=== PATIENT | male | born 1990 | race Caucasian/White ===

== ENCOUNTER 2021-06-04 22:13 | Inpatient (IN) | payer MEDICAID, OTHER, SELFPAY ==
[2021-06-04 22:32] VITALS: BP 143/87; PULSE 107; RESP 17; TEMP 37.1; O2SAT 97; BMI 27.9
--- NOTE | 2021-06-04 22:54 | ED_ITS ---
HPI - General Adult General Chief complaint: Psychiatric Symptoms <NATHAN Garcia Last Filed: 06/05/21 01:56> Stated complaint: crisis <Sallie Perez NP - Last Filed: 06/05/21 01:56> Time Seen by Provider: 06/05/21 09:58 <NATHAN Garcia Last Filed: 06/05/21 01:56> Source: patient <NATHAN Garcia Last Filed: 06/05/21 01:56> Mode of arrival: ambulatory <Sallie Perez NP - Last Filed: 06/05/21 01:56> Limitations: altered mental status <Sallie Perez NP - Last Filed: 06/05/21 01:56> History of Present Illness HPI narrative: 31-year-old male presents for multiple complaints, mostly psychiatric. Patient is not making any sense, sentences are garbled and speaking and half Faroese half Korean phrases. <NATHAN Garcia Last Filed: 06/05/21 01:56> Onset (ago): unknown <Sallie Perez NP - Last Filed: 06/05/21 01:56> Radiation: non-radiation <Sallie Perez NP - Last Filed: 06/05/21 01:56> Severity: moderate <Sallie Perez NP - Last Filed: 06/05/21 01:56> Associated symptoms: denies other symptoms <Sallie Perez NP - Last Filed: 06/05/21 01:56> Related Data Allergies/adverse reactions: Allergies Allergy/AdvReac Type Severity Reaction Status Date / Time No Known Allergies Allergy Unverified 11/05/19 18:52 [No Known Allergies*] <NATHAN Garcia Last Filed: 06/05/21 01:56> Review of Systems Review of Systems: Yes Unobtainable due to mental status (Manic, psychosis) <NATHAN Garcia Last Filed: 06/05/21 01:56> PMFSH Past Medical History Attestation statement: The following information was validated with the patient. <NATHAN Garcia Last Filed: 06/05/21 01:56> Source: old records reviewed <Sallie Perez NP - Last Filed: 06/05/21 01:56> Social History Social History: Social History Advance Directives: No Healthcare Proxy: No <Sallie Perez NP - Last Filed: 06/05/21 01:56> Physical Exam ED Vital Signs: Vital Signs - 24 hr 06/05/21 15:43 06/06/21 06:19 06/06/21 07:56 Temperature 98 F 97.8 F Pulse Rate 90 76 Respiratory Rate 16 16 15 Blood Pressure 133/87 133/86 Pulse Oximetry 97 96 BMI result Body Mass Index 27.9 <Sallie Perez NP - Last Filed: 06/05/21 01:56> Vital Signs - 24 hr 06/05/21 15:43 06/06/21 06:19 06/06/21 07:56 Temperature 98 F 97.8 F Pulse Rate 90 76 Respiratory Rate 16 16 15 Blood Pressure 133/87 133/86 Pulse Oximetry 97 96 BMI result Body Mass Index 27.9 <JENNIFER Ponce - Last Filed: 06/05/21 15:24> Vital Signs - 24 hr 06/05/21 15:43 06/06/21 06:19 06/06/21 07:56 Temperature 98 F 97.8 F Pulse Rate 90 76 Respiratory Rate 16 16 15 Blood Pressure 133/87 133/86 Pulse Oximetry 97 96 BMI result Body Mass Index 27.9 <JENNIFER Melgar - Last Filed: 06/06/21 09:43> Appearance: Alert. Oriented X3. No acute distress. Eyes: Pupils equal, round and reactive to light. ENT: Pharynx erythematous with bilateral tonsillar swelling. Neck: Normal inspection. Neck supple. CVS: Normal heart rate and rhythm. Pulses normal. Respiratory: No respiratory distress. Breath sounds normal. Abdomen: Soft and nontender. Skin: Skin warm and dry. Normal skin color. Normal skin turgor. Extremities: No lower extremity edema. Gait well-balanced well coordinated. Neuro: No motor deficit. No sensory deficit. Cranial nerves 2-12 intact. <Sallie Perez NP - Last Filed: 06/05/21 01:56> Course Course Course Narrative: 31-year-old male presents for psych evaluation. 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 Patient is clearly manic or psychotic. Will order care team consult. Will treat with azithromycin 1000 mg and ceftriaxone 500 mg IM. Patient is not suicidal or homicidal. Has a past history of schizophrenia. Last known visit to this facility was before 2015. 00:30 patient asking other patients to smell his shoes. Patient was moved to a different section of the emergency department and placed under direct supervision. 00:45 care team consult, plan is for Section 12 as patient is manic, has a history of schizoaffective disorder. Strep COVID influenza negative. 01:12 patient given Zyprexa 10, 2 mg of Ativan and 50 mg of Benadryl. Patient is not making any sense with his conversation. Needs multiple redirections. Physician observation started at this time. <Sallie Perez NP - Last Filed: 06/05/21 01:56> Reevaluation(s) Reevaluation #1: Physician observation continued. Patient continues to sleep after he was medicated with intramuscular Benadryl, Ativan and Zyprexa. Referral to crisis team has been made. Will continue to monitor closely. <JENNIFER Ponce - Last Filed: 06/05/21 15:24> Time: 09:59 <JENNIFER Ponce - Last Filed: 06/05/21 15:24> Reevaluation #2: Addendum 06/06/2021: Physician observation continued. Vital signs stable, no complaints overnight. Patient continues to be CARE team inpatient bed search <JENNIFER Melgar - Last Filed: 06/06/21 09:43> Time: 09:42 <JENNIFER Melgar - Last Filed: 06/06/21 09:43> Medical Decision Making Differential Diagnosis Differential Diagnosis: Psychosis, rafael, possible gonorrhea <Sallie Perez NP - Last Filed: 06/05/21 01:56> Medical Records Medical records reviewed: Yes I reviewed the patient's medical records. <Sallie Perez NP - Last Filed: 06/05/21 01:56> Lab Data Lab results reviewed: Yes I reviewed the patient's lab results. <Sallie Perez NP - Last Filed: 06/05/21 01:56> Result diagrams: : 06/04/21 23:34 06/04/21 23:34 <Sallie Perez NP - Last Filed: 06/05/21 01:56> Labs: Lab Results 06/04/21 06/04/21 06/04/21 Range/Units 23:04 23:04 23:26 WBC (4.8-10.8) X10*3/uL RBC (4.60-5.80) X10*6/uL Hgb (14.0-18.0) g/dl Hct (42.0-52.0) % MCV (80.0-98.0) fL MCH (27.0-33.0) pg MCHC (31.0-36.0) g/dl RDW (11.0-16.0) % Plt Count (160-400) X10*3/uL MPV (9.4-12.4) fL Immature Gran % (Auto) (0.0-0.4) % Neut % (Auto) (45-73) % Lymph % (Auto) (20-40) % [place] % (Auto) (2-11) % Eos % (Auto) (0-4) % Baso % (Auto) (0-2) % Lymph # (Auto) (1.2-4.9) X10*3/uL [place] # (Auto) (0.1-1.2) X10*3/uL Eos # (Auto) (0.0-0.4) X10*3/uL Baso # (Auto) (0.0-0.2) X10*3/uL Abs Immat Gran (auto) (0.00-0.03) X10*3/uL Absolute Neuts (auto) (2.0-8.3) x10*3/uL Absolute Nucleated RBC (0.0-0.012) X10*3/uL Nucleated RBC % (auto) (0.0-0.2) /100WBC Sodium (135-145) mmol/L Potassium (3.3-5.1) mmol/L Chloride (96-108) mmol/L Carbon Dioxide (22-29) mmol/L Anion Gap (12-20) BUN (9-16) mg/dL Creatinine (0.5-1.4) mg/dL Estim Creat Clear Calc Estimated GFR Random Glucose (60-115) mg/dL Calcium (8.4-10.2) mg/dL Urine Color Urine Appearance Urine pH (5.0-8.0) Ur Specific [place] (1.005-1.025) Urine Protein (NEG-TRACE) MG/DL Urine Glucose (UA) (NEG) MG/DL Urine Ketones (NEG) MG/DL Urine Blood (NEG) Urine Nitrite (NEG) Ur Leukocyte Esterase (NEG) Urine Opiates Screen (Not Detect) Urine Fentanyl Screen (Not Detect) Ur Barbiturates Screen (Not Detect) Ur Phencyclidine Scrn (Not Detect) Ur Amphetamines Screen (Not Detect) U Benzodiazepines Scrn (Not Detect) Urine Cocaine Screen (Not Detect) U Marijuana (THC) Screen (Not Detect) Ethyl Alcohol mg/dL Chlam trachomat DNA PCR NOT DETECTED (Not Detect.) Influenza Type A (PCR) NEGATIVE (Negative) Influenza Type B (PCR) NEGATIVE (Negative) N.gonorrhoeae DNA (PCR) NOT DETECTED (Not Detect.) RSV RNA Qual (PCR) NEGATIVE (Negative) SARS-CoV-2 RNA (RT-PCR) NEGATIVE (Negative) S. pyogenes GrpA KAYLIN Negative (Negative) 06/04/21 06/04/21 06/04/21 Range/Units 23:27 23:27 23:34 WBC 13.9 H (4.8-10.8) X10*3/uL RBC 4.49 L (4.60-5.80) X10*6/uL Hgb 14.0 (14.0-18.0) g/dl Hct 41.9 L (42.0-52.0) % MCV 93.3 (80.0-98.0) fL MCH 31.2 (27.0-33.0) pg MCHC 33.4 (31.0-36.0) g/dl RDW 13.2 (11.0-16.0) % Plt Count 294 (160-400) X10*3/uL MPV 10.8 (9.4-12.4) fL Immature Gran % (Auto) 0.4 (0.0-0.4) % Neut % (Auto) 73.1 H (45-73) % Lymph % (Auto) 17.4 L (20-40) % [place] % (Auto) 7.9 (2-11) % Eos % (Auto) 0.9 (0-4) % Baso % (Auto) 0.3 (0-2) % Lymph # (Auto) 2.4 (1.2-4.9) X10*3/uL [place] # (Auto) 1.1 (0.1-1.2) X10*3/uL Eos # (Auto) 0.1 (0.0-0.4) X10*3/uL Baso # (Auto) 0.0 (0.0-0.2) X10*3/uL Abs Immat Gran (auto) 0.05 H (0.00-0.03) X10*3/uL Absolute Neuts (auto) 10.1 H (2.0-8.3) x10*3/uL Absolute Nucleated RBC 0.000 (0.0-0.012) X10*3/uL Nucleated RBC % (auto) 0.0 (0.0-0.2) /100WBC Sodium (135-145) mmol/L Potassium (3.3-5.1) mmol/L Chloride (96-108) mmol/L Carbon Dioxide (22-29) mmol/L Anion Gap (12-20) BUN (9-16) mg/dL Creatinine (0.5-1.4) mg/dL Estim Creat Clear Calc Estimated GFR Random Glucose (60-115) mg/dL Calcium (8.4-10.2) mg/dL Urine Color YELLOW Urine Appearance CLEAR Urine pH 7.0 (5.0-8.0) Ur Specific [place] 1.025 (1.005-1.025) Urine Protein TRACE (NEG-TRACE) MG/DL Urine Glucose (UA) NEG (NEG) MG/DL Urine Ketones 5 (NEG) MG/DL Urine Blood NEG (NEG) Urine Nitrite NEG (NEG) Ur Leukocyte Esterase NEG (NEG) Urine Opiates Screen Not Detected (Not Detect) Urine Fentanyl Screen Not Detected (Not Detect) Ur Barbiturates Screen Not Detected (Not Detect) Ur Phencyclidine Scrn Not Detected (Not Detect) Ur Amphetamines Screen Not Detected (Not Detect) U Benzodiazepines Scrn Not Detected (Not Detect) Urine Cocaine Screen Not Detected (Not Detect) U Marijuana (THC) Screen Not Detected (Not Detect) Ethyl Alcohol mg/dL Chlam trachomat DNA PCR (Not Detect.) Influenza Type A (PCR) (Negative) Influenza Type B (PCR) (Negative) N.gonorrhoeae DNA (PCR) (Not Detect.) RSV RNA Qual (PCR) (Negative) SARS-CoV-2 RNA (RT-PCR) (Negative) S. pyogenes GrpA KAYLNI (Negative) 06/04/21 06/04/21 Range/Units 23:34 23:34 WBC (4.8-10.8) X10*3/uL RBC (4.60-5.80) X10*6/uL Hgb (14.0-18.0) g/dl Hct (42.0-52.0) % MCV (80.0-98.0) fL MCH (27.0-33.0) pg MCHC (31.0-36.0) g/dl RDW (11.0-16.0) % Plt Count (160-400) X10*3/uL MPV (9.4-12.4) fL Immature Gran % (Auto) (0.0-0.4) % Neut % (Auto) (45-73) % Lymph % (Auto) (20-40) % [place] % (Auto) (2-11) % Eos % (Auto) (0-4) % Baso % (Auto) (0-2) % Lymph # (Auto) (1.2-4.9) X10*3/uL [place] # (Auto) (0.1-1.2) X10*3/uL Eos # (Auto) (0.0-0.4) X10*3/uL Baso # (Auto) (0.0-0.2) X10*3/uL Abs Immat Gran (auto) (0.00-0.03) X10*3/uL Absolute Neuts (auto) (2.0-8.3) x10*3/uL Absolute Nucleated RBC (0.0-0.012) X10*3/uL Nucleated RBC % (auto) (0.0-0.2) /100WBC Sodium 137 (135-145) mmol/L Potassium 3.8 (3.3-5.1) mmol/L Chloride 99 (96-108) mmol/L Carbon Dioxide 26 (22-29) mmol/L Anion Gap 16 (12-20) BUN 18 H (9-16) mg/dL Creatinine 1.24 (0.5-1.4) mg/dL Estim Creat Clear Calc 93.6 Estimated GFR > 60 Random Glucose 146 H (60-115) mg/dL Calcium 10.7 H (8.4-10.2) mg/dL Urine Color Urine Appearance Urine pH (5.0-8.0) Ur Specific [place] (1.005-1.025) Urine Protein (NEG-TRACE) MG/DL Urine Glucose (UA) (NEG) MG/DL Urine Ketones (NEG) MG/DL Urine Blood (NEG) Urine Nitrite (NEG) Ur Leukocyte Esterase (NEG) Urine Opiates Screen (Not Detect) Urine Fentanyl Screen (Not Detect) Ur Barbiturates Screen (Not Detect) Ur Phencyclidine Scrn (Not Detect) Ur Amphetamines Screen (Not Detect) U Benzodiazepines Scrn (Not Detect) Urine Cocaine Screen (Not Detect) U Marijuana (THC) Screen (Not Detect) Ethyl Alcohol < 10 mg/dL Chlam trachomat DNA PCR (Not Detect.) Influenza Type A (PCR) (Negative) Influenza Type B (PCR) (Negative) N.gonorrhoeae DNA (PCR) (Not Detect.) RSV RNA Qual (PCR) (Negative) SARS-CoV-2 RNA (RT-PCR) (Negative) S. pyogenes GrpA KAYLIN (Negative) <Sallie Perez NP - Last Filed: 06/05/21 01:56> Lab Results 06/04/21 06/04/21 06/04/21 Range/Units 23:04 23:04 23:26 WBC (4.8-10.8) X10*3/uL RBC (4.60-5.80) X10*6/uL Hgb (14.0-18.0) g/dl Hct (42.0-52.0) % MCV (80.0-98.0) fL MCH (27.0-33.0) pg MCHC (31.0-36.0) g/dl RDW (11.0-16.0) % Plt Count (160-400) X10*3/uL MPV (9.4-12.4) fL Immature Gran % (Auto) (0.0-0.4) % Neut % (Auto) (45-73) % Lymph % (Auto) (20-40) % [place] % (Auto) (2-11) % Eos % (Auto) (0-4) % Baso % (Auto) (0-2) % Lymph # (Auto) (1.2-4.9) X10*3/uL [place] # (Auto) (0.1-1.2) X10*3/uL Eos # (Auto) (0.0-0.4) X10*3/uL Baso # (Auto) (0.0-0.2) X10*3/uL Abs Immat Gran (auto) (0.00-0.03) X10*3/uL Absolute Neuts (auto) (2.0-8.3) x10*3/uL Absolute Nucleated RBC (0.0-0.012) X10*3/uL Nucleated RBC % (auto) (0.0-0.2) /100WBC Sodium (135-145) mmol/L Potassium (3.3-5.1) mmol/L Chloride (96-108) mmol/L Carbon Dioxide (22-29) mmol/L Anion Gap (12-20) BUN (9-16) mg/dL Creatinine (0.5-1.4) mg/dL Estim Creat Clear Calc Estimated GFR Random Glucose (60-115) mg/dL Calcium (8.4-10.2) mg/dL Urine Color Urine Appearance Urine pH (5.0-8.0) Ur Specific [place] (1.005-1.025) Urine Protein (NEG-TRACE) MG/DL Urine Glucose (UA) (NEG) MG/DL Urine Ketones (NEG) MG/DL Urine Blood (NEG) Urine Nitrite (NEG) Ur Leukocyte Esterase (NEG) Urine Opiates Screen (Not Detect) Urine Fentanyl Screen (Not Detect) Ur Barbiturates Screen (Not Detect) Ur Phencyclidine Scrn (Not Detect) Ur Amphetamines Screen (Not Detect) U Benzodiazepines Scrn (Not Detect) Urine Cocaine Screen (Not Detect) U Marijuana (THC) Screen (Not Detect) Ethyl Alcohol mg/dL Chlam trachomat DNA PCR NOT DETECTED (Not Detect.) Influenza Type A (PCR) NEGATIVE (Negative) Influenza Type B (PCR) NEGATIVE (Negative) N.gonorrhoeae DNA (PCR) NOT DETECTED (Not Detect.) RSV RNA Qual (PCR) NEGATIVE (Negative) SARS-CoV-2 RNA (RT-PCR) NEGATIVE (Negative) S. pyogenes GrpA KAYLIN Negative (Negative) 06/04/21 06/04/21 06/04/21 Range/Units 23:27 23:27 23:34 WBC 13.9 H (4.8-10.8) X10*3/uL RBC 4.49 L (4.60-5.80) X10*6/uL Hgb 14.0 (14.0-18.0) g/dl Hct 41.9 L (42.0-52.0) % MCV 93.3 (80.0-98.0) fL MCH 31.2 (27.0-33.0) pg MCHC 33.4 (31.0-36.0) g/dl RDW 13.2 (11.0-16.0) % Plt Count 294 (160-400) X10*3/uL MPV 10.8 (9.4-12.4) fL Immature Gran % (Auto) 0.4 (0.0-0.4) % Neut % (Auto) 73.1 H (45-73) % Lymph % (Auto) 17.4 L (20-40) % [place] % (Auto) 7.9 (2-11) % Eos % (Auto) 0.9 (0-4) % Baso % (Auto) 0.3 (0-2) % Lymph # (Auto) 2.4 (1.2-4.9) X10*3/uL [place] # (Auto) 1.1 (0.1-1.2) X10*3/uL Eos # (Auto) 0.1 (0.0-0.4) X10*3/uL Baso # (Auto) 0.0 (0.0-0.2) X10*3/uL Abs Immat Gran (auto) 0.05 H (0.00-0.03) X10*3/uL Absolute Neuts (auto) 10.1 H (2.0-8.3) x10*3/uL Absolute Nucleated RBC 0.000 (0.0-0.012) X10*3/uL Nucleated RBC % (auto) 0.0 (0.0-0.2) /100WBC Sodium (135-145) mmol/L Potassium (3.3-5.1) mmol/L Chloride (96-108) mmol/L Carbon Dioxide (22-29) mmol/L Anion Gap (12-20) BUN (9-16) mg/dL Creatinine (0.5-1.4) mg/dL Estim Creat Clear Calc Estimated GFR Random Glucose (60-115) mg/dL Calcium (8.4-10.2) mg/dL Urine Color YELLOW Urine Appearance CLEAR Urine pH 7.0 (5.0-8.0) Ur Specific [place] 1.025 (1.005-1.025) Urine Protein TRACE (NEG-TRACE) MG/DL Urine Glucose (UA) NEG (NEG) MG/DL Urine Ketones 5 (NEG) MG/DL Urine Blood NEG (NEG) Urine Nitrite NEG (NEG) Ur Leukocyte Esterase NEG (NEG) Urine Opiates Screen Not Detected (Not Detect) Urine Fentanyl Screen Not Detected (Not Detect) Ur Barbiturates Screen Not Detected (Not Detect) Ur Phencyclidine Scrn Not Detected (Not Detect) Ur Amphetamines Screen Not Detected (Not Detect) U Benzodiazepines Scrn Not Detected (Not Detect) Urine Cocaine Screen Not Detected (Not Detect) U Marijuana (THC) Screen Not Detected (Not Detect) Ethyl Alcohol mg/dL Chlam trachomat DNA PCR (Not Detect.) Influenza Type A (PCR) (Negative) Influenza Type B (PCR) (Negative) N.gonorrhoeae DNA (PCR) (Not Detect.) RSV RNA Qual (PCR) (Negative) SARS-CoV-2 RNA (RT-PCR) (Negative) S. pyogenes GrpA KAYLIN (Negative) 06/04/21 06/04/21 Range/Units 23:34 23:34 WBC (4.8-10.8) X10*3/uL RBC (4.60-5.80) X10*6/uL Hgb (14.0-18.0) g/dl Hct (42.0-52.0) % MCV (80.0-98.0) fL MCH (27.0-33.0) pg MCHC (31.0-36.0) g/dl RDW (11.0-16.0) % Plt Count (160-400) X10*3/uL MPV (9.4-12.4) fL Immature Gran % (Auto) (0.0-0.4) % Neut % (Auto) (45-73) % Lymph % (Auto) (20-40) % [place] % (Auto) (2-11) % Eos % (Auto) (0-4) % Baso % (Auto) (0-2) % Lymph # (Auto) (1.2-4.9) X10*3/uL [place] # (Auto) (0.1-1.2) X10*3/uL Eos # (Auto) (0.0-0.4) X10*3/uL Baso # (Auto) (0.0-0.2) X10*3/uL Abs Immat Gran (auto) (0.00-0.03) X10*3/uL Absolute Neuts (auto) (2.0-8.3) x10*3/uL Absolute Nucleated RBC (0.0-0.012) X10*3/uL Nucleated RBC % (auto) (0.0-0.2) /100WBC Sodium 137 (135-145) mmol/L Potassium 3.8 (3.3-5.1) mmol/L Chloride 99 (96-108) mmol/L Carbon Dioxide 26 (22-29) mmol/L Anion Gap 16 (12-20) BUN 18 H (9-16) mg/dL Creatinine 1.24 (0.5-1.4) mg/dL Estim Creat Clear Calc 93.6 Estimated GFR > 60 Random Glucose 146 H (60-115) mg/dL Calcium 10.7 H (8.4-10.2) mg/dL Urine Color Urine Appearance Urine pH (5.0-8.0) Ur Specific [place] (1.005-1.025) Urine Protein (NEG-TRACE) MG/DL Urine Glucose (UA) (NEG) MG/DL Urine Ketones (NEG) MG/DL Urine Blood (NEG) Urine Nitrite (NEG) Ur Leukocyte Esterase (NEG) Urine Opiates Screen (Not Detect) Urine Fentanyl Screen (Not Detect) Ur Barbiturates Screen (Not Detect) Ur Phencyclidine Scrn (Not Detect) Ur Amphetamines Screen (Not Detect) U Benzodiazepines Scrn (Not Detect) Urine Cocaine Screen (Not Detect) U Marijuana (THC) Screen (Not Detect) Ethyl Alcohol < 10 mg/dL Chlam trachomat DNA PCR (Not Detect.) Influenza Type A (PCR) (Negative) Influenza Type B (PCR) (Negative) N.gonorrhoeae DNA (PCR) (Not Detect.) RSV RNA Qual (PCR) (Negative) SARS-CoV-2 RNA (RT-PCR) (Negative) S. pyogenes GrpA KAYLIN (Negative) <JENNIFER Ponce - Last Filed: 06/05/21 15:24> Lab Results 06/04/21 06/04/21 06/04/21 Range/Units 23:04 23:04 23:26 WBC (4.8-10.8) X10*3/uL RBC (4.60-5.80) X10*6/uL Hgb (14.0-18.0) g/dl Hct (42.0-52.0) % MCV (80.0-98.0) fL MCH (27.0-33.0) pg MCHC (31.0-36.0) g/dl RDW (11.0-16.0) % Plt Count (160-400) X10*3/uL MPV (9.4-12.4) fL Immature Gran % (Auto) (0.0-0.4) % Neut % (Auto) (45-73) % Lymph % (Auto) (20-40) % [place] % (Auto) (2-11) % Eos % (Auto) (0-4) % Baso % (Auto) (0-2) % Lymph # (Auto) (1.2-4.9) X10*3/uL [place] # (Auto) (0.1-1.2) X10*3/uL Eos # (Auto) (0.0-0.4) X10*3/uL Baso # (Auto) (0.0-0.2) X10*3/uL Abs Immat Gran (auto) (0.00-0.03) X10*3/uL Absolute Neuts (auto) (2.0-8.3) x10*3/uL Absolute Nucleated RBC (0.0-0.012) X10*3/uL Nucleated RBC % (auto) (0.0-0.2) /100WBC Sodium (135-145) mmol/L Potassium (3.3-5.1) mmol/L Chloride (96-108) mmol/L Carbon Dioxide (22-29) mmol/L Anion Gap (12-20) BUN (9-16) mg/dL Creatinine (0.5-1.4) mg/dL Estim Creat Clear Calc Estimated GFR Random Glucose (60-115) mg/dL Calcium (8.4-10.2) mg/dL Urine Color Urine Appearance Urine pH (5.0-8.0) Ur Specific [place] (1.005-1.025) Urine Protein (NEG-TRACE) MG/DL Urine Glucose (UA) (NEG) MG/DL Urine Ketones (NEG) MG/DL Urine Blood (NEG) Urine Nitrite (NEG) Ur Leukocyte Esterase (NEG) Urine Opiates Screen (Not Detect) Urine Fentanyl Screen (Not Detect) Ur Barbiturates Screen (Not Detect) Ur Phencyclidine Scrn (Not Detect) Ur Amphetamines Screen (Not Detect) U Benzodiazepines Scrn (Not Detect) Urine Cocaine Screen (Not Detect) U Marijuana (THC) Screen (Not Detect) Ethyl Alcohol mg/dL Chlam trachomat DNA PCR NOT DETECTED (Not Detect.) Influenza Type A (PCR) NEGATIVE (Negative) Influenza Type B (PCR) NEGATIVE (Negative) N.gonorrhoeae DNA (PCR) NOT DETECTED (Not Detect.) RSV RNA Qual (PCR) NEGATIVE (Negative) SARS-CoV-2 RNA (RT-PCR) NEGATIVE (Negative) S. pyogenes GrpA KAYLIN Negative (Negative) 06/04/21 06/04/21 06/04/21 Range/Units 23:27 23:27 23:34 WBC 13.9 H (4.8-10.8) X10*3/uL RBC 4.49 L (4.60-5.80) X10*6/uL Hgb 14.0 (14.0-18.0) g/dl Hct 41.9 L (42.0-52.0) % MCV 93.3 (80.0-98.0) fL MCH 31.2 (27.0-33.0) pg MCHC 33.4 (31.0-36.0) g/dl RDW 13.2 (11.0-16.0) % Plt Count 294 (160-400) X10*3/uL MPV 10.8 (9.4-12.4) fL Immature Gran % (Auto) 0.4 (0.0-0.4) % Neut % (Auto) 73.1 H (45-73) % Lymph % (Auto) 17.4 L (20-40) % [place] % (Auto) 7.9 (2-11) % Eos % (Auto) 0.9 (0-4) % Baso % (Auto) 0.3 (0-2) % Lymph # (Auto) 2.4 (1.2-4.9) X10*3/uL [place] # (Auto) 1.1 (0.1-1.2) X10*3/uL Eos # (Auto) 0.1 (0.0-0.4) X10*3/uL Baso # (Auto) 0.0 (0.0-0.2) X10*3/uL Abs Immat Gran (auto) 0.05 H (0.00-0.03) X10*3/uL Absolute Neuts (auto) 10.1 H (2.0-8.3) x10*3/uL Absolute Nucleated RBC 0.000 (0.0-0.012) X10*3/uL Nucleated RBC % (auto) 0.0 (0.0-0.2) /100WBC Sodium (135-145) mmol/L Potassium (3.3-5.1) mmol/L Chloride (96-108) mmol/L Carbon Dioxide (22-29) mmol/L Anion Gap (12-20) BUN (9-16) mg/dL Creatinine (0.5-1.4) mg/dL Estim Creat Clear Calc Estimated GFR Random Glucose (60-115) mg/dL Calcium (8.4-10.2) mg/dL Urine Color YELLOW Urine Appearance CLEAR Urine pH 7.0 (5.0-8.0) Ur Specific [place] 1.025 (1.005-1.025) Urine Protein TRACE (NEG-TRACE) MG/DL Urine Glucose (UA) NEG (NEG) MG/DL Urine Ketones 5 (NEG) MG/DL Urine Blood NEG (NEG) Urine Nitrite NEG (NEG) Ur Leukocyte Esterase NEG (NEG) Urine Opiates Screen Not Detected (Not Detect) Urine Fentanyl Screen Not Detected (Not Detect) Ur Barbiturates Screen Not Detected (Not Detect) Ur Phencyclidine Scrn Not Detected (Not Detect) Ur Amphetamines Screen Not Detected (Not Detect) U Benzodiazepines Scrn Not Detected (Not Detect) Urine Cocaine Screen Not Detected (Not Detect) U Marijuana (THC) Screen Not Detected (Not Detect) Ethyl Alcohol mg/dL Chlam trachomat DNA PCR (Not Detect.) Influenza Type A (PCR) (Negative) Influenza Type B (PCR) (Negative) N.gonorrhoeae DNA (PCR) (Not Detect.) RSV RNA Qual (PCR) (Negative) SARS-CoV-2 RNA (RT-PCR) (Negative) S. pyogenes GrpA KAYLIN (Negative) 06/04/21 06/04/21 Range/Units 23:34 23:34 WBC (4.8-10.8) X10*3/uL RBC (4.60-5.80) X10*6/uL Hgb (14.0-18.0) g/dl Hct (42.0-52.0) % MCV (80.0-98.0) fL MCH (27.0-33.0) pg MCHC (31.0-36.0) g/dl RDW (11.0-16.0) % Plt Count (160-400) X10*3/uL MPV (9.4-12.4) fL Immature Gran % (Auto) (0.0-0.4) % Neut % (Auto) (45-73) % Lymph % (Auto) (20-40) % [place] % (Auto) (2-11) % Eos % (Auto) (0-4) % Baso % (Auto) (0-2) % Lymph # (Auto) (1.2-4.9) X10*3/uL [place] # (Auto) (0.1-1.2) X10*3/uL Eos # (Auto) (0.0-0.4) X10*3/uL Baso # (Auto) (0.0-0.2) X10*3/uL Abs Immat Gran (auto) (0.00-0.03) X10*3/uL Absolute Neuts (auto) (2.0-8.3) x10*3/uL Absolute Nucleated RBC (0.0-0.012) X10*3/uL Nucleated RBC % (auto) (0.0-0.2) /100WBC Sodium 137 (135-145) mmol/L Potassium 3.8 (3.3-5.1) mmol/L Chloride 99 (96-108) mmol/L Carbon Dioxide 26 (22-29) mmol/L Anion Gap 16 (12-20) BUN 18 H (9-16) mg/dL Creatinine 1.24 (0.5-1.4) mg/dL Estim Creat Clear Calc 93.6 Estimated GFR > 60 Random Glucose 146 H (60-115) mg/dL Calcium 10.7 H (8.4-10.2) mg/dL Urine Color Urine Appearance Urine pH (5.0-8.0) Ur Specific [place] (1.005-1.025) Urine Protein (NEG-TRACE) MG/DL Urine Glucose (UA) (NEG) MG/DL Urine Ketones (NEG) MG/DL Urine Blood (NEG) Urine Nitrite (NEG) Ur Leukocyte Esterase (NEG) Urine Opiates Screen (Not Detect) Urine Fentanyl Screen (Not Detect) Ur Barbiturates Screen (Not Detect) Ur Phencyclidine Scrn (Not Detect) Ur Amphetamines Screen (Not Detect) U Benzodiazepines Scrn (Not Detect) Urine Cocaine Screen (Not Detect) U Marijuana (THC) Screen (Not Detect) Ethyl Alcohol < 10 mg/dL Chlam trachomat DNA PCR (Not Detect.) Influenza Type A (PCR) (Negative) Influenza Type B (PCR) (Negative) N.gonorrhoeae DNA (PCR) (Not Detect.) RSV RNA Qual (PCR) (Negative) SARS-CoV-2 RNA (RT-PCR) (Negative) S. pyogenes GrpA KAYLIN (Negative) <JENNIFER Melgar - Last Filed: 06/06/21 09:43> Discharge Plan Discharge Clinical Impression: Acute psychosis, Chronic schizophrenia, Manic behavior <Sallie Perez NP - Last Filed: 06/05/21 01:56> Patient Disposition: Still a Patient <Sallie Perez NP - Last Filed: 06/05/21 01:56>
[2021-06-04 23:20] LABS: Strep A Nucleic Acid Negative (Negative)
[2021-06-04 23:36] LABS: Appearance Urine CLEAR; Color Urine YELLOW; Glucose Urine UA NEG (NEG); Leukocyte Esterase Urine NEG (NEG); Nitrite Urine NEG (NEG); Specific Gravity - Urine 1.025 (1.005-1.025); Urine Blood NEG (NEG); Urine Ketones 5 MG/DL (NEG); Urine Protein TRACE MG/DL (NEG-TRACE)
[2021-06-04 23:43] LABS: Basophils Percent Auto 0.3 % (0-2); Eosinophils Absolute Auto 0.1 X10*3/uL (0.0-0.4); Eosinophils Percent Auto 0.9 % (0-4); Hematocrit 41.9 % (42.0-52.0); Imm Gran Abs Auto 0.05 X10*3/uL (0.00-0.03); Imm Gran Pct Auto 0.4 % (0.0-0.4); Lymphocytes Absolute Auto 2.4 X10*3/uL (1.2-4.9); Lymphocytes Percent Auto 17.4 % (20-40); MANUAL DIFF FLAG NO; Mean Corpuscular HGB Conc 33.4 g/dl (31.0-36.0); Mean Corpuscular Hemoglobin 31.2 pg (27.0-33.0); Mean Corpuscular Volume 93.3 fL (80.0-98.0); Mean Platelet Volume 10.8 fL (9.4-12.4); Monocytes Absolute Auto 1.1 X10*3/uL (0.1-1.2); Monocytes Percent Auto 7.9 % (2-11); Neutrophils Absolute Auto 10.1 x10*3/uL (2.0-8.3); Neutrophils Percent Auto 73.1 % (45-73); Platelet Count 294 X10*3/uL (160-400); Red Blood Count 4.49 X10*6/uL (4.60-5.80); Red Cell Distribution Width 13.2 % (11.0-16.0); White Blood Count 13.9 X10*3/uL (4.8-10.8)
[2021-06-04 23:50] LABS: Amphetamine Screen Urine Not Detected (Not Detect); Barbiturates, Urine Not Detected (Not Detect); Benzodiazepines Screen Urine Not Detected (Not Detect); Cannabinoid Screen Urine Not Detected (Not Detect); Cocaine Screen Urine Not Detected (Not Detect); Fentanyl, urine Not Detected (Not Detect); Opiate Screen Urine Not Detected (Not Detect); Phencyclidine Screen Urine Not Detected (Not Detect)
[2021-06-04 23:55] LABS: Ethanol < 10 mg/dL
[2021-06-04 23:55] LABS: Influenza A PCR NEGATIVE (Negative); Influenza B PCR NEGATIVE (Negative); Resp Syncy Virus RNA Qual PCR NEGATIVE (Negative); SARS COV2 PCR INHOUSE NEGATIVE (Negative)
[2021-06-04 23:59] LABS: Anion Gap 16 (12-20); Blood Urea Nitrogen 18 mg/dL (9-16); Calcium 10.7 mg/dL (8.4-10.2); Carbon Dioxide 26 mmol/L (22-29); Chloride 99 mmol/L (96-108); Creatinine Clr Calc Pharmacy 93.6; Estimated Glomerular Filt Rate > 60; Glucose Random 146 mg/dL (60-115); Potassium 3.8 mmol/L (3.3-5.1); Sodium 137 mmol/L (135-145)
--- NOTE | 2021-06-05 00:48 | PC.NURSE ---
Care team @ bedside.
[2021-06-05] MEDS: cefTRIAXone sodium 500 MG, Lidocaine HCl 1 % MPF 1 ML IM (00:55)
[2021-06-05] MEDS: Azithromycin 500 MG TABLET 1000 MG PO (00:55)
[2021-06-05] MEDS: OLANZapine 10 MG TABLET PO (01:06)
[2021-06-05] MEDS: diphenhydrAMINE HCL 25 MG TABLET 50 MG PO (01:06)
[2021-06-05] MEDS: LORazepam 1 MG TABLET 2 MG PO (01:06)
--- NOTE | 2021-06-05 01:10 | PC.NURSE ---
Per [employer], pt section 12ed for psychosis. Per Care Team, pt is a bed search.
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
[2021-06-05 01:17] LABS: CT PCR NOT DETECTED (Not Detect.); NG PCR NOT DETECTED (Not Detect.)
--- NOTE | 2021-06-05 02:36 | PC.NURSE ---
Pt sleeping in bed at this time with sitter at bedside. MD requesting pt to be placed on capnography. Pt wakes easily, refusing capnography @ this time. aware.
[2021-06-05 04:51] VITALS: BP 114/66; PULSE 79; RESP 14; O2SAT 97
[2021-06-05 09:19] VITALS: RESP 16
--- NOTE | 2021-06-05 09:21 | PC.NURSE ---
This RN assumed care of patient at this time. Patient currently sleeping. Skin PWD resp even and non labored. Patient observer at bedside.
--- NOTE | 2021-06-05 15:24 | MHC.CARE ---
CARE Team attempted to evaluate patient who was too disorganized to participate in the interview process, collateral contacts were unreachable and he appears unsafe to discharge in his current condition. He will have to remain in the ED until a psychiatric placement is secured.
[2021-06-05 15:43] VITALS: BP 133/87; PULSE 90; RESP 16; TEMP 36.6; O2SAT 97
[2021-06-06 06:19] VITALS: RESP 16
--- NOTE | 2021-06-06 07:36 | PC.NURSE ---
patient appears to remain asleep at present resprstions are even and unlabored patient appears in no distress
[2021-06-06 07:56] VITALS: BP 133/86; PULSE 76; RESP 15; TEMP 36.6; O2SAT 96
[2021-06-06] MEDS: OLANZapine 5 MG TABLET PO (09:50)
[2021-06-06] MEDS: Ibuprofen 400 MG TABLET PO (09:54)
--- NOTE | 2021-06-06 19:24 | PC.NURSE ---
Patient pacing back and forth trying to come into nurse's station. Security called and at bedside.
--- NOTE | 2021-06-06 19:31 | PC.NURSE ---
Report given to LARRY Flores on M5.
[2021-06-06 22:01] VITALS: BP 149/88; PULSE 84; RESP 16; TEMP 36.8; O2SAT 97; BMI 27.7
--- NOTE | 2021-06-06 22:07 | PC.NURSE ---
Patient en route to unit, belongings and security at bedside.
--- NOTE | 2021-06-06 22:10 | PHA.MEDREC ---
Pharmacy Consult ? Medication Reconciliation Pharmacy has completed the medication reconciliation. Spoke to patient's mother, she named zyprexa, seroquel, and trazodone. The patient has no claim history; tried contacting both [facility] and [facility] but both came up with empty profiles. Unsure of accuracy of current med list. Patricia Green, PharmD
--- NOTE | 2021-06-06 22:48 | PC.ADMIT ---
Pt is a 31 y/o admitted on CV for Delusion and Psychosis. Pt alert and oriented x3, VSS, Covid negative, Tox negative, Pt is presented as delusional with bizzare behavior such as asking people in the ED to smell his shoes and asking for gas mask. Pt appears disheveled Upon assessment. Pt is bilingual with regular Speech. Pt denies SI/HI. Reports hearing voices earlier but not at this time. Pt is homeless and reports needing help establishing primary care provider. Pt is difficult to understand makes intermittent eye contact. Pt presents with delusions and some paranoia. Thoughts process is tangential and disorganized. Admission order obtained.
[2021-06-06] MEDS: OLANZapine 10 MG TABLET PO (23:20)
--- NOTE | 2021-06-07 16:14 | HO.PSYADMNOT ---
HPI Date of Service: 06/07/21 Chief Complaint: Psychosis Sources of Information: patient interviewed, chart reviewed and crisis/core team assessment reviewed HPI Subjective Notes: Lemos Warning, Conditional Voluntary and Section 12B Healthcare Proxy: Yes Guardianship: No Medical Problems Affecting Mental Status: No Narrative: 31 yo male, hx of schizoaffective disorder, bipolar type, known to our service. Pt has been decompensating per family experiencing sx of delusions, bizarre behaviors, medical sx complaints. Family believes he is off his medications. Met with pt x 3 today. He is calm, without fear or acute distress, however he is a very disorganized historian and scattered in his reporting. He is unable to sustain discussion for longer than a few minutes, then returns to to add information. Our interactions included information about what God was planning for the planet primarily. Our second discussion focused on missing people and animals that he believes are hiding behind doors and in [place]nández on the unit and our third discussion was pt's belief that one of his peers was the Lala. Pt is observed to be interactive with peers, jovial at times, calm at times. He does report he is eating and drinking. He had reported in the ER vomiting blood, however today reports he has been healed completely and denies this sx. He denies pain. He is skeptical regarding medications but will accept support and encouragement to being some treatment. Past Psychiatric History: [place] [facility] [place]: Jhon states yes, but is not able to identify Trials: Everything, yet nothing . Unable to recall Medical Evaluation Reviewed: Yes [facility] Medical History (Updated 06/09/21 @ 06:37 by Chhaya Resendiz APRN) Schizoaffective disorder, bipolar type Narrative: Pt denies Family History: schizophrenia Social History: Pt unable to articulate Per CARE- To [place] from [place] in 2009 Substance History: Denies Trauma History: Affirms without specifics Diagnostics Vital Signs (24Hr): Vital Signs - 24 hr 06/06/21 22:01 Temperature 98.3 F Pulse Rate 84 Respiratory Rate 16 Blood Pressure 149/88 H Pulse Oximetry 97 BMI result Body Mass Index 27.7 Labs Results: 06/04/21 23:34 06/04/21 23:34 Meds/Allergies Meds Home Medications Acetaminophen (Acetaminophen 325 Mg Tablet) 650 mg PO Q6H PRN PRN Reason: Headache/Pain Mild Scale (1-3) Al Hydroxide/Mg Hydroxide (Magnesium Hydrox/Alum Hydrox 30 Ml Oral.Susp) 30 ml PO Q6H PRN PRN Reason: Heartburn/Nausea Diphenhydramine HCl (Diphenhydramine Hcl 25 Mg Tablet) 50 mg PO Q8H PRN PRN Reason: agitation Haloperidol (Haloperidol 5 Mg Tablet) 5 mg PO TID PRN PRN Reason: violence, psychotic agitation Hydroxyzine HCl (Hydroxyzine Hcl 25 Mg Tablet) 25 mg PO BEDTIME PRN PRN Reason: Anxiety Lorazepam (Lorazepam 1 Mg Tablet) 1 mg PO Q4H PRN PRN Reason: psychotic agitation Last Admin: 06/08/21 19:05 Dose: 1 mg Documented by: Magnesium Hydroxide (Milk Of Magnesia 30 Ml Oral.Susp) 30 ml PO DAILY PRN PRN Reason: Constipation Nicotine Polacrilex (Nicotine Polacrilex 2 Mg Gum) 4 mg BUCCAL Q2H PRN PRN Reason: Nicotine Cravings Last Admin: 06/07/21 18:13 Dose: 4 mg Documented by: Olanzapine (Olanzapine 5 Mg Tablet) 5 mg PO BID PRN PRN Reason: psychotic agitation Last Admin: 06/07/21 17:12 Dose: 5 mg Documented by: Olanzapine (Olanzapine 7.5 Mg Tablet) 15 mg PO BEDTIME SHANEL Last Admin: 06/08/21 21:29 Dose: Not Given Documented by: Trazodone HCl (Trazodone Hcl 50 Mg Tablet) 50 mg PO BEDTIME PRN PRN Reason: Insomnia Allergies Allergies Allergy/AdvReac Type Severity Reaction Status Date / Time No Known Allergies Allergy Unverified 11/05/19 18:52 [No Known Allergies*] Mental Status Exam Mental Status Exam Patient Appearance: Appropriate and Bizarre Patient Orientation: Person Level of Consciousness: Alert Patient Behavior: Talkative, Hyperactive, Passive, Restless, Wandering, Distractible, Confused, Good Eye Contact and Impulsive Mood Description: Euphoric, Happy, Suspicious, Withdrawn, Cheerful, Labile, Apprehensive and Expansive Affect Description: Labile and Expansive Patient Cognition Impaired: Yes Ability to Follow Directions: Fair Speech Pattern: Spontaneous Speech, Rambling, Cofabulation, Rapid, Pressured and Poor Articulation Memory Description: Remote Impaired, Immediate Impaired, Senior User Experience Architect Impaired and Episodic Impaired Hallucinations: Auditory Delusions: Paranoid Ideation and Grandiose Perceptual Disturbances: Derealization and Hallucinations Thought Process: Racing, Illogical and Confusion Thought Content: positive for Flight of Ideas, positive for Racing, positive for Loose Associations, positive for Suicidal Ideation (denies) and positive for Homicidal Ideation (denies) Depressive Symptoms: Diff. Making Decisions and Difficulty Concentrating Abnormal Motor Activity Signs and Symptoms: Restlessness Judgement: Poor Assessment & Plan Assessment & Plan (1) Schizoaffective disorder, bipolar type: Status: Acute Code(s): F25.0 - Schizoaffective disorder, bipolar type Plan 31 yo male, exacerbation of schizoaffective disorder, bipolar type with decompensation. Plan: Encourage pt to re-establish medication regime Diagnostics Collateral contacts for history Possible Section VII as today, pt does not want to take meds or believes he needs meds. Patient educated on: diagnosis, medication risk/benefits and therapeutic strategies Informed Consent: does not understand Reason for continued inpatient stay Substantial Risk for: harm to self, inability to function and rapid decompensation
[2021-06-07] MEDS: OLANZapine 5 MG TABLET PO (17:12)
[2021-06-07] MEDS: Nicotine Polacrilex 2 MG GUM 4 MG BUCCAL (18:13)
[2021-06-07 19:15] VITALS: BP 151/87; PULSE 94; RESP 18; TEMP 37.2; O2SAT 97
[2021-06-07] MEDS: OLANZapine 7.5 MG TABLET 15 MG PO (21:46)
[2021-06-08 08:10] VITALS: BP 123/79; PULSE 79; TEMP 37
--- NOTE | 2021-06-08 17:44 | HO.PSYCHPN ---
Subjective Subjective Date of Service: 06/08/21 Reason For Visit: Psychosis Subjective Notes: Section 12B Healthcare Proxy: No Guardianship: No Medical Problems Affecting Mental Status: No Interim History: Less visable today. Spending most of his time resting/napping. Declines medication. Did accept 7.5 mg Olanzapine last evening (had ordered 15 mg). Collateral information obtained from mom by Romana JOHN much appreciated. Discussed initiating a treatment plan with pt. He declines, but this is a nice place and I will stay with you. Declines to engage in any discussion regarding treatment. Declines further labs/diagnostics. Medication Compliance: Intermittent Side effects from medications: No Attending Groups: Intermittent Review of Systems Acute medical concerns: No Medical Review of Systems: unchanged Review of Systems Reports behavioral changes and Reports confusion Psychiatric: Reports behavioral changes, Reports confusion, Reports auditory hallucinations, Reports mood swings and Reports paranoia Mental Status Exam Mental Status Exam Patient Appearance: Appropriate and Bizarre Patient Orientation: Person Level of Consciousness: Alert Patient Behavior: Talkative, Hyperactive, Passive, Restless, Wandering, Distractible, Confused, Good Eye Contact and Impulsive Mood Description: Euphoric, Happy, Suspicious, Withdrawn, Cheerful, Labile, Apprehensive and Expansive Affect Description: Labile and Expansive Patient Cognition Impaired: Yes Ability to Follow Directions: Fair Speech Pattern: Spontaneous Speech, Rambling, Cofabulation, Rapid, Pressured and Poor Articulation Memory Description: Remote Impaired, Immediate Impaired, Dot Compliance Coordinator Impaired and Episodic Impaired Hallucinations: Auditory Delusions: Paranoid Ideation and Grandiose Perceptual Disturbances: Derealization and Hallucinations Thought Process: Racing, Illogical and Confusion Thought Content: positive for Flight of Ideas, positive for Racing, positive for Loose Associations, positive for Suicidal Ideation (denies) and positive for Homicidal Ideation (denies) Depressive Symptoms: Diff. Making Decisions and Difficulty Concentrating Abnormal Motor Activity Signs and Symptoms: Restlessness Judgement: Poor Diagnostics Vital Signs (24Hr): Vital Signs - 24 hr 06/07/21 19:15 06/08/21 08:10 Temperature 98.9 F 98.6 F Pulse Rate 94 79 Respiratory Rate 18 Blood Pressure 151/87 H 123/79 Pulse Oximetry 97 BMI result Body Mass Index 27.7 Labs Results: 06/04/21 23:34 06/04/21 23:34 Medications Medications Current Medications Acetaminophen (Acetaminophen 325 Mg Tablet) 650 mg PO Q6H PRN PRN Reason: Headache/Pain Mild Scale (1-3) Al Hydroxide/Mg Hydroxide (Magnesium Hydrox/Alum Hydrox 30 Ml Oral.Susp) 30 ml PO Q6H PRN PRN Reason: Heartburn/Nausea Diphenhydramine HCl (Diphenhydramine Hcl 25 Mg Tablet) 50 mg PO Q8H PRN PRN Reason: agitation Haloperidol (Haloperidol 5 Mg Tablet) 5 mg PO TID PRN PRN Reason: violence, psychotic agitation Hydroxyzine HCl (Hydroxyzine Hcl 25 Mg Tablet) 25 mg PO BEDTIME PRN PRN Reason: Anxiety Lorazepam (Lorazepam 1 Mg Tablet) 1 mg PO Q4H PRN PRN Reason: psychotic agitation Magnesium Hydroxide (Milk Of Magnesia 30 Ml Oral.Susp) 30 ml PO DAILY PRN PRN Reason: Constipation Nicotine Polacrilex (Nicotine Polacrilex 2 Mg Gum) 4 mg BUCCAL Q2H PRN PRN Reason: Nicotine Cravings Last Admin: 06/07/21 18:13 Dose: 4 mg Documented by: Olanzapine (Olanzapine 5 Mg Tablet) 5 mg PO BID PRN PRN Reason: psychotic agitation Last Admin: 06/07/21 17:12 Dose: 5 mg Documented by: Olanzapine (Olanzapine 7.5 Mg Tablet) 15 mg PO BEDTIME SHANEL Last Admin: 06/07/21 21:46 Dose: 7.5 mg Documented by: Trazodone HCl (Trazodone Hcl 50 Mg Tablet) 50 mg PO BEDTIME PRN PRN Reason: Insomnia Allergies Allergies Allergy/AdvReac Type Severity Reaction Status Date / Time No Known Allergies Allergy Unverified 11/05/19 18:52 [No Known Allergies*] Assessment & Plan Assessment & Plan (1) Schizoaffective disorder, bipolar type: Status: Acute Code(s): F25.0 - Schizoaffective disorder, bipolar type Plan 06/08/21- Continue to offer treatment/medication/support/education. Probable Section VII when Section XIIB expires I spent minutes with the patient and/or on the patient floor today, greater than?50% of which was spent counseling/coordinating care. Patient educated on: medication risk/benefits and therapeutic strategies Informed Consent: does not understand Reason for contiued inpatient stay Substantial Risk for: harm to self, harm to others, inability to function and rapid decompensation
[2021-06-08 18:00] VITALS: BP 130/75; PULSE 70
[2021-06-08] MEDS: LORazepam 1 MG TABLET PO (19:05)
--- NOTE | 2021-06-09 11:24 | P.PNPSI_ITS ---
Subjective Subjective Date of Service: 06/09/21 Reason For Visit: Psychosis Subjective Notes: Conditional Voluntary Interim History: Per nursing, pt mostly in his room, minimal interaction with peers or staff, superficially cooperative denied any concerns. Pt continues to present as internally preoccupied. He was in bed when this commercial underwriter saw him. Pt reports he is not sure why he is on the unit. He denies SI/HI. Attention poor, denies AH but appears internally preoccupied. Medication Compliance: Intermittent Side effects from medications: No Review of Systems Review of Systems Yes Unobtainable due to mental status Reports behavioral changes, Reports confusion and Reports memory loss Psychiatric: Reports behavioral changes, Reports confusion, Reports difficulty concentrating, Reports auditory hallucinations, Reports anhedonia, Reports memory loss, Reports mood swings, Reports paranoia and Reports hallucinations Mental Status Exam Mental Status Exam Narrative: Appearance: casually groomed, fair hygiene in NAD Behavior:guarded, superficial psychomotor:some retardation noted Speech:clear, delayed response rate, minimally spontaneous, soft tone. Thought process:single word answers, some derailment at times, poverty of thought Thought content:not very talkative, Mood: okay Affect: constricted SI:denies HI:denies VH/AH:appears internally preoccupied. Delusions:no overt but paranoia noted. Insight/judgment:impaired x 2. Memory/cog: alert, not oriented to situation, impaired secondary to psychiatric problems. Diagnostics Vital Signs (24Hr): Vital Signs - 24 hr 06/08/21 18:00 Pulse Rate 70 Blood Pressure 130/75 BMI result Body Mass Index 27.7 Labs Results: 06/04/21 23:34 06/04/21 23:34 Medications Medications Current Medications Acetaminophen (Acetaminophen 325 Mg Tablet) 650 mg PO Q6H PRN PRN Reason: Headache/Pain Mild Scale (1-3) Al Hydroxide/Mg Hydroxide (Magnesium Hydrox/Alum Hydrox 30 Ml Oral.Susp) 30 ml PO Q6H PRN PRN Reason: Heartburn/Nausea Diphenhydramine HCl (Diphenhydramine Hcl 25 Mg Tablet) 50 mg PO Q8H PRN PRN Reason: agitation Haloperidol (Haloperidol 5 Mg Tablet) 5 mg PO TID PRN PRN Reason: violence, psychotic agitation Hydroxyzine HCl (Hydroxyzine Hcl 25 Mg Tablet) 25 mg PO BEDTIME PRN PRN Reason: Anxiety Lorazepam (Lorazepam 1 Mg Tablet) 1 mg PO Q4H PRN PRN Reason: psychotic agitation Last Admin: 06/08/21 19:05 Dose: 1 mg Documented by: Magnesium Hydroxide (Milk Of Magnesia 30 Ml Oral.Susp) 30 ml PO DAILY PRN PRN Reason: Constipation Nicotine Polacrilex (Nicotine Polacrilex 2 Mg Gum) 4 mg BUCCAL Q2H PRN PRN Reason: Nicotine Cravings Last Admin: 06/07/21 18:13 Dose: 4 mg Documented by: Olanzapine (Olanzapine 5 Mg Tablet) 5 mg PO BID PRN PRN Reason: psychotic agitation Last Admin: 06/07/21 17:12 Dose: 5 mg Documented by: Olanzapine (Olanzapine 7.5 Mg Tablet) 15 mg PO BEDTIME SHANEL Last Admin: 06/08/21 21:29 Dose: Not Given Documented by: Trazodone HCl (Trazodone Hcl 100 Mg Tablet) 100 mg PO BEDTIME PRN PRN Reason: Insomnia Allergies Allergies Allergy/AdvReac Type Severity Reaction Status Date / Time No Known Allergies Allergy Unverified 11/05/19 18:52 [No Known Allergies*] Assessment & Plan Assessment & Plan (1) Schizoaffective disorder, bipolar type: Status: Acute Code(s): F25.0 - Schizoaffective disorder, bipolar type Plan 06/08/21- Continue to offer treatment/medication/support/education. Probable Section VII when Section XIIB expires 06/09- increase olanzapine to 20mg po qhs-it will be offered but pt can decline as not court mandated yet. I spent ____25__ minutes with the patient and/or on the patient floor today, greater than?50% of which was spent counseling/coordinating care. Reason for contiued inpatient stay Substantial Risk for: inability to function
--- NOTE | 2021-06-09 14:07 | PC.NURSE ---
PT SIGNED A 3 DAY NOTICE ON FRIDAY 06/09 THAT WILL BE UP ON WEDNESDAY 06/14
[2021-06-09 14:29] VITALS: BP 144/97; PULSE 125; RESP 16; O2SAT 97
[2021-06-09] MEDS: LORazepam 1 MG TABLET PO (15:06)
[2021-06-09] MEDS: Acetaminophen 325 MG TABLET 650 MG PO (15:45)
[2021-06-09 18:00] VITALS: BP 109/68; PULSE 99; RESP 16; TEMP 36.8; O2SAT 98
[2021-06-09] MEDS: Nicotine Polacrilex 2 MG GUM 4 MG BUCCAL (19:18)
[2021-06-09] MEDS: Artificial Tears 15 ML DROPS 2 DROP EYE-BOTH (20:51)
--- NOTE | 2021-06-10 08:53 | HO.PSYCHPN ---
Subjective Subjective Date of Service: 06/10/21 Reason For Visit: Psychosis Interim History: 06/09:Per nursing, pt mostly in his room, minimal interaction with peers or staff, superficially cooperative denied any concerns. Pt continues to present as internally preoccupied. He was in bed when this investment underwriter saw him. Pt reports he is not sure why he is on the unit. He denies SI/HI. Attention poor, denies AH but appears internally preoccupied. 06/10: Mood guarded. Polite responses. Denies SI/AH. Review of Systems Review of Systems Yes Unobtainable due to mental status Reports behavioral changes, Reports confusion and Reports memory loss Psychiatric: Reports behavioral changes, Reports confusion, Reports difficulty concentrating, Reports auditory hallucinations, Reports anhedonia, Reports memory loss, Reports mood swings, Reports paranoia and Reports hallucinations Mental Status Exam Mental Status Exam Narrative: Appearance: casually groomed, fair hygiene in NAD Behavior:guarded, superficial psychomotor:some retardation noted Speech:clear, delayed response rate, minimally spontaneous, soft tone. Thought process:single word answers, some derailment at times, poverty of thought Thought content:not very talkative, Mood: okay Affect: constricted SI:denies HI:denies VH/AH:appears internally preoccupied. Delusions:no overt but paranoia noted. Insight/judgment:impaired x 2. Memory/cog: alert, not oriented to situation, impaired secondary to psychiatric problems. Patient Appearance: Appropriate and Bizarre Patient Orientation: Person Level of Consciousness: Alert Patient Behavior: Talkative, Hyperactive, Passive, Restless, Wandering, Distractible, Confused, Good Eye Contact and Impulsive Mood Description: Euphoric, Happy, Suspicious, Withdrawn, Cheerful, Labile, Apprehensive and Expansive Affect Description: Labile and Expansive Patient Cognition Impaired: Yes Ability to Follow Directions: Fair Speech Pattern: Spontaneous Speech, Rambling, Cofabulation, Rapid, Pressured and Poor Articulation Memory Description: Remote Impaired, Immediate Impaired, Senior Living Impaired and Episodic Impaired Diagnostics Vital Signs (24Hr): Vital Signs - 24 hr 06/09/21 14:29 06/09/21 18:00 Temperature 98.2 F Pulse Rate 125 H 99 Respiratory Rate 16 16 Blood Pressure 144/97 H 109/68 Pulse Oximetry 97 98 BMI result Body Mass Index 27.7 Labs Results: 06/04/21 23:34 06/04/21 23:34 Medications Medications Current Medications Acetaminophen (Acetaminophen 325 Mg Tablet) 650 mg PO Q6H PRN PRN Reason: Headache/Pain Mild Scale (1-3) Last Admin: 06/09/21 15:45 Dose: 650 mg Documented by: Al Hydroxide/Mg Hydroxide (Magnesium Hydrox/Alum Hydrox 30 Ml Oral.Susp) 30 ml PO Q6H PRN PRN Reason: Heartburn/Nausea Artificial Tears (Artificial Tears 15 Ml Drops) 2 drop EYE-BOTH Q4H PRN PRN Reason: Dry Eyes Last Admin: 06/09/21 20:51 Dose: 2 drop Documented by: Diphenhydramine HCl (Diphenhydramine Hcl 25 Mg Tablet) 50 mg PO Q8H PRN PRN Reason: agitation Haloperidol (Haloperidol 5 Mg Tablet) 5 mg PO TID PRN PRN Reason: violence, psychotic agitation Hydroxyzine HCl (Hydroxyzine Hcl 25 Mg Tablet) 25 mg PO BEDTIME PRN PRN Reason: Anxiety Lorazepam (Lorazepam 1 Mg Tablet) 1 mg PO Q4H PRN PRN Reason: psychotic agitation Last Admin: 06/09/21 15:06 Dose: 1 mg Documented by: Magnesium Hydroxide (Milk Of Magnesia 30 Ml Oral.Susp) 30 ml PO DAILY PRN PRN Reason: Constipation Nicotine Polacrilex (Nicotine Polacrilex 2 Mg Gum) 4 mg BUCCAL Q2H PRN PRN Reason: Nicotine Cravings Last Admin: 06/09/21 19:18 Dose: 4 mg Documented by: Olanzapine (Olanzapine 5 Mg Tablet) 5 mg PO BID PRN PRN Reason: psychotic agitation Last Admin: 06/07/21 17:12 Dose: 5 mg Documented by: Olanzapine (Olanzapine 10 Mg Tablet) 20 mg PO BEDTIME SHANEL Last Admin: 06/09/21 23:30 Dose: Not Given Documented by: Trazodone HCl (Trazodone Hcl 100 Mg Tablet) 100 mg PO BEDTIME PRN PRN Reason: Insomnia Allergies Allergies Allergy/AdvReac Type Severity Reaction Status Date / Time No Known Allergies Allergy Unverified 11/05/19 18:52 [No Known Allergies*] Assessment & Plan Assessment & Plan (1) Schizoaffective disorder, bipolar type: Status: Acute Code(s): F25.0 - Schizoaffective disorder, bipolar type Plan 06/08/21- Continue to offer treatment/medication/support/education. Probable Section VII when Section XIIB expires 06/09- increase olanzapine to 20mg po qhs-it will be offered but pt can decline as not court mandated yet. 06/10: Ct treatment plan I spent minutes with the patient and/or on the patient floor today, greater than?50% of which was spent counseling/coordinating care. Reason for contiued inpatient stay Substantial Risk for: rapid decompensation
[2021-06-10] MEDS: Nicotine Polacrilex 2 MG GUM 4 MG BUCCAL ×2 (16:25→21:28)
[2021-06-10 18:00] VITALS: BP 128/83; PULSE 100; RESP 18; TEMP 36.5; O2SAT 98
[2021-06-10] MEDS: OLANZapine 10 MG TABLET 20 MG PO (21:09)
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
[2021-06-11 06:00] VITALS: BP 120/69; PULSE 78; RESP 16; TEMP 36.4; O2SAT 99
[2021-06-11 18:00] VITALS: BP 118/79; PULSE 68; RESP 16; TEMP 36.4; O2SAT 99
[2021-06-11] MEDS: OLANZapine 10 MG TABLET 20 MG PO (19:21)
[2021-06-11] MEDS: Nicotine Polacrilex 2 MG GUM 4 MG BUCCAL (19:46)
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
--- NOTE | 2021-06-12 | ECG_ITS ---
Test Reason : MED CLEARENCE Blood Pressure : / mmHG Vent. Rate : 092 BPM Atrial Rate : 092 BPM P-R Int : 154 ms QRS Dur : 088 ms QT Int : 354 ms P-R-T Axes : 059 069 045 degrees QTc Int : 437 ms Normal sinus rhythm Normal ECG When compared with ECG of 30-AUG-2014 16:37, No significant change was found Referred By: Lisa Angeles Electronically Signed By:GRISELDA MAZARIEGOS
[2021-06-12 01:50] VITALS: BP 151/69; PULSE 104; RESP 20; TEMP 36.7; O2SAT 95
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
[2021-06-12 13:25] LABS: MANUAL DIFF FLAG NO
[2021-06-12 13:27] LABS: Basophils Percent Auto 0.3 % (0-2); Eosinophils Absolute Auto 0.4 X10*3/uL (0.0-0.4); Eosinophils Percent Auto 4.3 % (0-4); Hematocrit 39.3 % (42.0-52.0); Hemoglobin 12.9 g/dl (14.0-18.0); Imm Gran Abs Auto 0.03 X10*3/uL (0.00-0.03); Imm Gran Pct Auto 0.3 % (0.0-0.4); Lymphocytes Percent Auto 22.5 % (20-40); Mean Corpuscular HGB Conc 32.8 g/dl (31.0-36.0); Mean Corpuscular Hemoglobin 31.2 pg (27.0-33.0); Mean Corpuscular Volume 95.2 fL (80.0-98.0); Mean Platelet Volume 10.2 fL (9.4-12.4); Monocytes Absolute Auto 0.7 X10*3/uL (0.1-1.2); Monocytes Percent Auto 8.3 % (2-11); Neutrophils Absolute Auto 5.6 x10*3/uL (2.0-8.3); Neutrophils Percent Auto 64.3 % (45-73); Platelet Count 248 X10*3/uL (160-400); Red Blood Count 4.13 X10*6/uL (4.60-5.80); Red Cell Distribution Width 12.9 % (11.0-16.0); White Blood Count 8.7 X10*3/uL (4.8-10.8)
[2021-06-12 13:46] LABS: Alanine Aminotransferase 19 U/L (0-40); Albumin Level 4.2 g/dL (3.5-5.0); Alkaline Phosphatase 74 U/L (39-117); Anion Gap 8 (12-20); Aspartate Amino Transferase 18 U/L (5-37); Bilirubin Total 0.8 mg/dL (0.0-1.0); Blood Urea Nitrogen 15 mg/dL (9-16); Calcium 9.6 mg/dL (8.4-10.2); Carbon Dioxide 34 mmol/L (22-29); Chloride 101 mmol/L (96-108); Creatinine Clr Calc Pharmacy 92.6; Estimated Glomerular Filt Rate > 60; Glucose Random 118 mg/dL (60-115); Potassium 4.4 mmol/L (3.3-5.1); Sodium 139 mmol/L (135-145); Total Protein 6.8 g/dL (6.5-8.0)
[2021-06-12 21:35] VITALS: BP 131/67; PULSE 89; TEMP 37.1
[2021-06-12] MEDS: OLANZapine 10 MG TABLET PO (21:50)
[2021-06-13 09:29] LABS: Estimated Average Glucose 105 mg/dL; Hemoglobin A1c % 5.3 %
[2021-06-13 10:30] LABS: Cholesterol 120 mg/dL; HDL Cholesterol 44 mg/dL; LDL Cholesterol Calculated 65 mg/dl; Triglycerides 55 mg/dL
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
[2021-06-13 18:00] VITALS: RESP 16
[2021-06-13] MEDS: Magnesium Hydrox/Alum Hydrox 30 ML ORAL.SUSP PO (19:33)
[2021-06-13] MEDS: risperiDONE 2 MG TABLET PO (21:36)
[2021-06-14] MEDS: OLANZapine 10 MG TABLET PO (00:51)
[2021-06-14] MEDS: Artificial Tears 15 ML DROPS 2 DROP EYE-BOTH (00:52)
[2021-06-14] MEDS: LORazepam 1 MG TABLET PO (02:13)
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
[2021-06-14] MEDS: risperiDONE 2 MG TABLET 4 MG PO (20:18)
[2021-06-14] MEDS: traZODone HCL 100 MG TABLET PO (23:34)
[2021-06-15] MEDS: LORazepam 1 MG TABLET PO (00:37)
[2021-06-15] MEDS: diphenhydrAMINE HCL 25 MG TABLET 50 MG PO (00:38)
--- NOTE | 2021-06-15 10:53 | HO.PSYCHPN ---
Subjective Subjective Date of Service: 06/15/21 Reason For Visit: Psychosis Subjective Notes: Conditional Voluntary Interim History: Pt calmer, although continues to report paranoia delusions, guarded about providing more details about this as he worries it will keep him longer in hospital. Pt taking risperidone, although not sleeping well but hesitant to take trazodone for sleep. He denies SI, Hi conditional to if I have to defend myself I will. continue 1:1 mother reports pt calling with paranoid statements. Medication Compliance: Yes Side effects from medications: No Attending Groups: Intermittent Review of Systems Review of Systems Yes Unobtainable due to mental status Reports behavioral changes, Reports confusion and Reports memory loss Psychiatric: Reports behavioral changes, Reports confusion, Reports difficulty concentrating, Reports auditory hallucinations, Reports anhedonia, Reports memory loss, Reports mood swings, Reports paranoia and Reports hallucinations Mental Status Exam Mental Status Exam Narrative: Appearance: casually groomed, fair hygiene in NAD Behavior:guarded, superficial psychomotor:some retardation noted Speech:clear, delayed response rate, minimally spontaneous, soft tone. Thought process:single word answers, some derailment at times, poverty of thought Thought content:not very talkative, Mood: okay Affect: constricted SI:denies HI:denies VH/AH:appears internally preoccupied. Delusions:no overt but paranoia noted. Insight/judgment:impaired x 2. Memory/cog: alert, not oriented to situation, impaired secondary to psychiatric problems. Patient Appearance: Appropriate and Bizarre Patient Orientation: Person Level of Consciousness: Alert Patient Behavior: Talkative, Hyperactive, Passive, Restless, Wandering, Distractible, Confused, Good Eye Contact and Impulsive Mood Description: Euphoric, Happy, Suspicious, Withdrawn, Cheerful, Labile, Apprehensive and Expansive Affect Description: Labile and Expansive Patient Cognition Impaired: Yes Ability to Follow Directions: Fair Speech Pattern: Spontaneous Speech, Rambling, Cofabulation, Rapid, Pressured and Poor Articulation Memory Description: Remote Impaired, Immediate Impaired, Grain Drier Operator Impaired and Episodic Impaired Diagnostics Vital Signs (24Hr): Vital Signs - 24 hr 06/18/21 08:36 06/18/21 18:41 Temperature 98.4 F Pulse Rate 119 H 89 Respiratory Rate 18 Blood Pressure 128/72 138/86 Pulse Oximetry 96 BMI result Body Mass Index 27.8 Labs Results: 06/12/21 13:21 06/12/21 13:21 Medications Medications Current Medications Acetaminophen (Acetaminophen 325 Mg Tablet) 650 mg PO Q6H PRN PRN Reason: Headache/Pain Mild Scale (1-3) Last Admin: 06/19/21 01:45 Dose: 650 mg Documented by: Al Hydroxide/Mg Hydroxide (Magnesium Hydrox/Alum Hydrox 30 Ml Oral.Susp) 30 ml PO Q6H PRN PRN Reason: Heartburn/Nausea Last Admin: 06/13/21 19:33 Dose: 30 ml Documented by: Amlodipine Besylate (Amlodipine Besylate 5 Mg Tablet) 5 mg PO DAILY SHANEL; Protocol Last Admin: 06/18/21 09:40 Dose: Not Given Documented by: Artificial Tears (Artificial Tears 15 Ml Drops) 2 drop EYE-BOTH Q4H PRN PRN Reason: Dry Eyes Last Admin: 06/14/21 00:52 Dose: 2 drop Documented by: Diphenhydramine HCl (Diphenhydramine Hcl 25 Mg Tablet) 50 mg PO Q8H PRN PRN Reason: agitation Last Admin: 06/19/21 00:46 Dose: 50 mg Documented by: Hydroxyzine HCl (Hydroxyzine Hcl 25 Mg Tablet) 25 mg PO BEDTIME PRN PRN Reason: Anxiety Lorazepam (Lorazepam 1 Mg Tablet) 1 mg PO Q4H PRN PRN Reason: psychotic agitation Last Admin: 06/15/21 00:37 Dose: 1 mg Documented by: Magnesium Hydroxide (Milk Of Magnesia 30 Ml Oral.Susp) 30 ml PO DAILY PRN PRN Reason: Constipation Nicotine Polacrilex (Nicotine Polacrilex 2 Mg Gum) 4 mg BUCCAL Q2H PRN PRN Reason: Nicotine Cravings Last Admin: 06/11/21 19:46 Dose: 4 mg Documented by: Olanzapine (Olanzapine 10 Mg Tablet) 10 mg PO Q4H PRN PRN Reason: agitation Last Admin: 06/16/21 22:27 Dose: 10 mg Documented by: Olanzapine (Olanzapine 10 Mg Tablet) 10 mg PO BEDTIME SHANEL Last Admin: 06/18/21 20:37 Dose: 10 mg Documented by: Paliperidone Palmitate (Paliperidone Palmitate 234 Mg/1.5 Ml Syringe) 234 mg IM Q30D [facility] Last Admin: 06/16/21 20:18 Dose: 234 mg Documented by: Trazodone HCl (Trazodone Hcl 100 Mg Tablet) 100 mg PO BEDTIME SHANEL Last Admin: 06/19/21 00:46 Dose: 100 mg Documented by: Allergies Allergies Allergy/AdvReac Type Severity Reaction Status Date / Time No Known Allergies Allergy Unverified 11/05/19 18:52 [No Known Allergies*] Assessment & Plan Assessment & Plan (1) Schizoaffective disorder, bipolar type: Status: Acute Code(s): F25.0 - Schizoaffective disorder, bipolar type Plan 06/08/21- Continue to offer treatment/medication/support/education. Probable Section VII when Section XIIB expires 06/09- increase olanzapine to 20mg po qhs-it will be offered but pt can decline as not court mandated yet. 06/10: Ct treatment plan 06/11: Ct Rx plan. 06/12 olanzapine switched to risperidone 2mg po BID 06/13 continue current medications. 06/14- switch risperidone to qhs 4mg po qhs. as pt does not want to take in the morning. 06/15 continues risperione 4mg po qhs, add trazodone 100mg po qhs for sleep. I spent __25____ minutes with the patient and/or on the patient floor today, greater than?50% of which was spent counseling/coordinating care. Reason for contiued inpatient stay Substantial Risk for: harm to others and inability to function
[2021-06-15 11:33] VITALS: BP 131/76; PULSE 112; RESP 18; TEMP 36.7; O2SAT 97; BMI 27.8
[2021-06-15 16:14] VITALS: BP 137/81; PULSE 113
[2021-06-15] MEDS: risperiDONE 2 MG TABLET 4 MG PO (20:01)
[2021-06-15] MEDS: OLANZapine 10 MG TABLET PO (23:02)
[2021-06-15] MEDS: traZODone HCL 100 MG TABLET PO (23:04)
[2021-06-16 09:13] VITALS: BP 182/95; PULSE 126; RESP 18; TEMP 37; O2SAT 98
--- NOTE | 2021-06-16 10:56 | HO.PSYCHPN ---
Subjective Subjective Date of Service: 06/16/21 Reason For Visit: Psychosis Subjective Notes: Conditional Voluntary Interim History: Pt calmer, less hypervigilant. Some residual statements related to paranoid delusions, guarded about providing more details about this as he worries it will keep him longer in hospital. Pt taking risperidone, although not sleeping well again and refused to take trazodone for sleep last night. He denies SI, Hi conditional to if I have to defend myself I will. change to 5 mins checks as he is calmer, no aggressive. Medication Compliance: Yes Side effects from medications: No Review of Systems Review of Systems Yes Unobtainable due to mental status Reports behavioral changes, Reports confusion and Reports memory loss Psychiatric: Reports behavioral changes, Reports confusion, Reports difficulty concentrating, Reports auditory hallucinations, Reports anhedonia, Reports memory loss, Reports mood swings, Reports paranoia and Reports hallucinations Mental Status Exam Mental Status Exam Narrative: Appearance: casually groomed, fair hygiene in NAD Behavior:guarded, superficial psychomotor:some retardation noted Speech:clear, delayed response rate, minimally spontaneous, soft tone. Thought process:single word answers, some derailment at times, poverty of thought Thought content:not very talkative, Mood: okay Affect: constricted SI:denies HI:denies VH/AH:appears internally preoccupied. Delusions:no overt but paranoia noted. Insight/judgment:impaired x 2. Memory/cog: alert, not oriented to situation, impaired secondary to psychiatric problems. Patient Appearance: Appropriate and Bizarre Patient Orientation: Person Level of Consciousness: Alert Patient Behavior: Talkative, Hyperactive, Passive, Restless, Wandering, Distractible, Confused, Good Eye Contact and Impulsive Mood Description: Euphoric, Happy, Suspicious, Withdrawn, Cheerful, Labile, Apprehensive and Expansive Affect Description: Labile and Expansive Patient Cognition Impaired: Yes Ability to Follow Directions: Fair Speech Pattern: Spontaneous Speech, Rambling, Cofabulation, Rapid, Pressured and Poor Articulation Memory Description: Remote Impaired, Immediate Impaired, Detention Impaired and Episodic Impaired Diagnostics Vital Signs (24Hr): Vital Signs - 24 hr 06/18/21 08:36 06/18/21 18:41 Temperature 98.4 F Pulse Rate 119 H 89 Respiratory Rate 18 Blood Pressure 128/72 138/86 Pulse Oximetry 96 BMI result Body Mass Index 27.8 Labs Results: 06/12/21 13:21 06/12/21 13:21 Medications Medications Current Medications Acetaminophen (Acetaminophen 325 Mg Tablet) 650 mg PO Q6H PRN PRN Reason: Headache/Pain Mild Scale (1-3) Last Admin: 06/19/21 01:45 Dose: 650 mg Documented by: Al Hydroxide/Mg Hydroxide (Magnesium Hydrox/Alum Hydrox 30 Ml Oral.Susp) 30 ml PO Q6H PRN PRN Reason: Heartburn/Nausea Last Admin: 06/13/21 19:33 Dose: 30 ml Documented by: Amlodipine Besylate (Amlodipine Besylate 5 Mg Tablet) 5 mg PO DAILY SHANEL; Protocol Last Admin: 06/18/21 09:40 Dose: Not Given Documented by: Artificial Tears (Artificial Tears 15 Ml Drops) 2 drop EYE-BOTH Q4H PRN PRN Reason: Dry Eyes Last Admin: 06/14/21 00:52 Dose: 2 drop Documented by: Diphenhydramine HCl (Diphenhydramine Hcl 25 Mg Tablet) 50 mg PO Q8H PRN PRN Reason: agitation Last Admin: 06/19/21 00:46 Dose: 50 mg Documented by: Hydroxyzine HCl (Hydroxyzine Hcl 25 Mg Tablet) 25 mg PO BEDTIME PRN PRN Reason: Anxiety Lorazepam (Lorazepam 1 Mg Tablet) 1 mg PO Q4H PRN PRN Reason: psychotic agitation Last Admin: 06/15/21 00:37 Dose: 1 mg Documented by: Magnesium Hydroxide (Milk Of Magnesia 30 Ml Oral.Susp) 30 ml PO DAILY PRN PRN Reason: Constipation Nicotine Polacrilex (Nicotine Polacrilex 2 Mg Gum) 4 mg BUCCAL Q2H PRN PRN Reason: Nicotine Cravings Last Admin: 06/11/21 19:46 Dose: 4 mg Documented by: Olanzapine (Olanzapine 10 Mg Tablet) 10 mg PO Q4H PRN PRN Reason: agitation Last Admin: 06/16/21 22:27 Dose: 10 mg Documented by: Olanzapine (Olanzapine 10 Mg Tablet) 10 mg PO BEDTIME SHANEL Last Admin: 06/18/21 20:37 Dose: 10 mg Documented by: Paliperidone Palmitate (Paliperidone Palmitate 234 Mg/1.5 Ml Syringe) 234 mg IM Q30D [facility]PLAC[facility] Last Admin: 06/16/21 20:18 Dose: 234 mg Documented by: Trazodone HCl (Trazodone Hcl 100 Mg Tablet) 100 mg PO BEDTIME SHANEL Last Admin: 06/19/21 00:46 Dose: 100 mg Documented by: Allergies Allergies Allergy/AdvReac Type Severity Reaction Status Date / Time No Known Allergies Allergy Unverified 11/05/19 18:52 [No Known Allergies*] Assessment & Plan Assessment & Plan (1) Schizoaffective disorder, bipolar type: Status: Acute Code(s): F25.0 - Schizoaffective disorder, bipolar type Plan 06/08/21- Continue to offer treatment/medication/support/education. Probable Section VII when Section XIIB expires 06/09- increase olanzapine to 20mg po qhs-it will be offered but pt can decline as not court mandated yet. 06/10: Ct treatment plan 06/11: Ct Rx plan. 06/12 olanzapine switched to risperidone 2mg po BID 06/13 continue current medications. 06/14- switch risperidone to qhs 4mg po qhs. as pt does not want to take in the morning. 06/15 continues risperione 4mg po qhs, add trazodone 100mg po qhs for sleep. 06/16 Pt agreed to RANDOLPH of paliperidone- given Invega Sustenna 234mg IM, next loading dose on Saturday 156mg IM. I spent _25 minutes with the patient and/or on the patient floor today, greater than?50% of which was spent counseling/coordinating care. Reason for contiued inpatient stay Substantial Risk for: harm to others and inability to function
[2021-06-16 18:00] VITALS: BP 131/78; PULSE 110; RESP 20; TEMP 36.6; O2SAT 97
[2021-06-16] MEDS: Paliperidone Palmitate 234 MG/1.5 ML SYRINGE IM (20:18)
[2021-06-16] MEDS: amLODIPine Besylate 5 MG TABLET PO (20:21)
[2021-06-16] MEDS: risperiDONE 2 MG TABLET 4 MG PO (20:56)
[2021-06-16] MEDS: traZODone HCL 100 MG TABLET PO (22:27)
[2021-06-16] MEDS: OLANZapine 10 MG TABLET PO (22:27)
[2021-06-16] MEDS: Acetaminophen 325 MG TABLET 650 MG PO (22:55)
--- NOTE | 2021-06-17 11:25 | P.PNPSI_ITS ---
Subjective Subjective Date of Service: 06/17/21 Reason For Visit: Psychosis Subjective Notes: Conditional Voluntary Interim History: Pt did not sleep well last night. He did not take trazodone, receive RANDOLPH yesterday Invega Sustenna. He agrees to d/c oral risperidone, d/c trazodone but start low dose of olanzapine as he reports helps for sleep/mood. Less paranoia. Much less hypervigilant, not aggressive towards self or others. pleasant, wanting to leave, some insight into need for treatment. Medication Compliance: Yes Side effects from medications: No Review of Systems Review of Systems Yes Unobtainable due to mental status Reports behavioral changes, Reports confusion and Reports memory loss Psychiatric: Reports behavioral changes, Reports confusion, Reports difficulty concentrating, Reports auditory hallucinations, Reports anhedonia, Reports memory loss, Reports mood swings, Reports paranoia and Reports hallucinations Mental Status Exam Mental Status Exam Narrative: Appearance: casually groomed, fair hygiene in NAD Behavior:guarded, superficial psychomotor:some retardation noted Speech:clear, delayed response rate, minimally spontaneous, soft tone. Thought process:single word answers, some derailment at times, poverty of thought Thought content:not very talkative, Mood: okay Affect: constricted SI:denies HI:denies VH/AH:appears internally preoccupied. Delusions:no overt but paranoia noted. Insight/judgment:impaired x 2. Memory/cog: alert, not oriented to situation, impaired secondary to psychiatric problems. Patient Appearance: Appropriate and Bizarre Patient Orientation: Person Level of Consciousness: Alert Patient Behavior: Talkative, Hyperactive, Passive, Restless, Wandering, Distractible, Confused, Good Eye Contact and Impulsive Mood Description: Euphoric, Happy, Suspicious, Withdrawn, Cheerful, Labile, Apprehensive and Expansive Affect Description: Labile and Expansive Patient Cognition Impaired: Yes Ability to Follow Directions: Fair Speech Pattern: Spontaneous Speech, Rambling, Cofabulation, Rapid, Pressured and Poor Articulation Memory Description: Remote Impaired, Immediate Impaired, Generation Engineering Technologist Impaired and Episodic Impaired Diagnostics Vital Signs (24Hr): Vital Signs - 24 hr 06/18/21 08:36 06/18/21 18:41 Temperature 98.4 F Pulse Rate 119 H 89 Respiratory Rate 18 Blood Pressure 128/72 138/86 Pulse Oximetry 96 BMI result Body Mass Index 27.8 Labs Results: 06/12/21 13:21 06/12/21 13:21 Medications Medications Current Medications Acetaminophen (Acetaminophen 325 Mg Tablet) 650 mg PO Q6H PRN PRN Reason: Headache/Pain Mild Scale (1-3) Last Admin: 06/19/21 01:45 Dose: 650 mg Documented by: Al Hydroxide/Mg Hydroxide (Magnesium Hydrox/Alum Hydrox 30 Ml Oral.Susp) 30 ml PO Q6H PRN PRN Reason: Heartburn/Nausea Last Admin: 06/13/21 19:33 Dose: 30 ml Documented by: Amlodipine Besylate (Amlodipine Besylate 5 Mg Tablet) 5 mg PO DAILY SHANEL; Protocol Last Admin: 06/18/21 09:40 Dose: Not Given Documented by: Artificial Tears (Artificial Tears 15 Ml Drops) 2 drop EYE-BOTH Q4H PRN PRN Reason: Dry Eyes Last Admin: 06/14/21 00:52 Dose: 2 drop Documented by: Diphenhydramine HCl (Diphenhydramine Hcl 25 Mg Tablet) 50 mg PO Q8H PRN PRN Reason: agitation Last Admin: 06/19/21 00:46 Dose: 50 mg Documented by: Hydroxyzine HCl (Hydroxyzine Hcl 25 Mg Tablet) 25 mg PO BEDTIME PRN PRN Reason: Anxiety Lorazepam (Lorazepam 1 Mg Tablet) 1 mg PO Q4H PRN PRN Reason: psychotic agitation Last Admin: 06/15/21 00:37 Dose: 1 mg Documented by: Magnesium Hydroxide (Milk Of Magnesia 30 Ml Oral.Susp) 30 ml PO DAILY PRN PRN Reason: Constipation Nicotine Polacrilex (Nicotine Polacrilex 2 Mg Gum) 4 mg BUCCAL Q2H PRN PRN Reason: Nicotine Cravings Last Admin: 06/11/21 19:46 Dose: 4 mg Documented by: Olanzapine (Olanzapine 10 Mg Tablet) 10 mg PO Q4H PRN PRN Reason: agitation Last Admin: 06/16/21 22:27 Dose: 10 mg Documented by: Olanzapine (Olanzapine 10 Mg Tablet) 10 mg PO BEDTIME SHANEL Last Admin: 06/18/21 20:37 Dose: 10 mg Documented by: Paliperidone Palmitate (Paliperidone Palmitate 234 Mg/1.5 Ml Syringe) 234 mg IM Q30D [facility] Last Admin: 06/16/21 20:18 Dose: 234 mg Documented by: Trazodone HCl (Trazodone Hcl 100 Mg Tablet) 100 mg PO BEDTIME SHANEL Last Admin: 06/19/21 00:46 Dose: 100 mg Documented by: Allergies Allergies Allergy/AdvReac Type Severity Reaction Status Date / Time No Known Allergies Allergy Unverified 11/05/19 18:52 [No Known Allergies*] Assessment & Plan Assessment & Plan (1) Schizoaffective disorder, bipolar type: Status: Acute Code(s): F25.0 - Schizoaffective disorder, bipolar type Plan 06/08/21- Continue to offer treatment/medication/support/education. Probable Section VII when Section XIIB expires 06/09- increase olanzapine to 20mg po qhs-it will be offered but pt can decline as not court mandated yet. 06/10: Ct treatment plan 06/11: Ct Rx plan. 06/12 olanzapine switched to risperidone 2mg po BID 06/13 continue current medications. 06/14- switch risperidone to qhs 4mg po qhs. as pt does not want to take in the morning. 06/15 continues risperione 4mg po qhs, add trazodone 100mg po qhs for sleep. 06/16 Pt agreed to RANDOLPH of paliperidone- given Invega Sustenna 234mg IM, next loading dose on Saturday 156mg IM. 06/17- d/c risperidone, start olanzapine 10mg qhs, next Invega Sustenna on 06/19, then monthly. I spent __25____ minutes with the patient and/or on the patient floor today, greater than?50% of which was spent counseling/coordinating care. Reason for contiued inpatient stay Substantial Risk for: harm to others and inability to function
[2021-06-17 12:44] VITALS: BP 143/89; PULSE 112; RESP 18; TEMP 37; O2SAT 95
[2021-06-17] MEDS: amLODIPine Besylate 5 MG TABLET PO (13:02)
[2021-06-17 18:42] VITALS: BP 128/82; PULSE 107
[2021-06-17] MEDS: Acetaminophen 325 MG TABLET 650 MG PO (19:29)
[2021-06-17] MEDS: OLANZapine 10 MG TABLET PO (21:14)
[2021-06-17] MEDS: traZODone HCL 100 MG TABLET PO (21:14)
[2021-06-18] MEDS: traZODone HCL 100 MG TABLET PO ×2 (05:34→20:37)
[2021-06-18 08:36] VITALS: BP 128/72; PULSE 119; RESP 18; TEMP 36.9; O2SAT 96
[2021-06-18] MEDS: Acetaminophen 325 MG TABLET 650 MG PO ×2 (10:46→18:39)
--- NOTE | 2021-06-18 11:37 | P.PNPSI_ITS ---
Subjective Subjective Date of Service: 06/18/21 Reason For Visit: Psychosis Subjective Notes: Conditional Voluntary Interim History: Pt slept better with olanzapine. He has been more visible today. Had visit with mother. Much less hypervigilant, not aggressive towards self or others. pleasant, wanting to leave, some insight into need for treatment. Less AH/VH. Mo markus to his own room, as he is less paranoid. Medication Compliance: Yes Side effects from medications: No Attending Groups: Yes Review of Systems Review of Systems Yes Unobtainable due to mental status Reports behavioral changes, Reports confusion and Reports memory loss Psychiatric: Reports behavioral changes, Reports confusion, Reports difficulty concentrating, Reports auditory hallucinations, Reports anhedonia, Reports memory loss, Reports mood swings, Reports paranoia and Reports hallucinations Mental Status Exam Mental Status Exam Narrative: Appearance: casually groomed, fair hygiene in NAD Behavior:guarded, superficial psychomotor:some retardation noted Speech:clear, delayed response rate, minimally spontaneous, soft tone. Thought process:single word answers, some derailment at times, poverty of thought Thought content:not very talkative, Mood: okay Affect: constricted SI:denies HI:denies VH/AH:appears internally preoccupied. Delusions:no overt but paranoia noted. Insight/judgment:impaired x 2. Memory/cog: alert, not oriented to situation, impaired secondary to psychiatric problems. Patient Appearance: Appropriate and Bizarre Patient Orientation: Person Level of Consciousness: Alert Patient Behavior: Talkative, Hyperactive, Passive, Restless, Wandering, Distractible, Confused, Good Eye Contact and Impulsive Mood Description: Euphoric, Happy, Suspicious, Withdrawn, Cheerful, Labile, Apprehensive and Expansive Affect Description: Labile and Expansive Patient Cognition Impaired: Yes Ability to Follow Directions: Fair Speech Pattern: Spontaneous Speech, Rambling, Cofabulation, Rapid, Pressured and Poor Articulation Memory Description: Remote Impaired, Immediate Impaired, Residential Impaired and Episodic Impaired Diagnostics Vital Signs (24Hr): Vital Signs - 24 hr 06/18/21 08:36 06/18/21 18:41 Temperature 98.4 F Pulse Rate 119 H 89 Respiratory Rate 18 Blood Pressure 128/72 138/86 Pulse Oximetry 96 BMI result Body Mass Index 27.8 Labs Results: 06/12/21 13:21 06/12/21 13:21 Medications Medications Current Medications Acetaminophen (Acetaminophen 325 Mg Tablet) 650 mg PO Q6H PRN PRN Reason: Headache/Pain Mild Scale (1-3) Last Admin: 06/19/21 01:45 Dose: 650 mg Documented by: Al Hydroxide/Mg Hydroxide (Magnesium Hydrox/Alum Hydrox 30 Ml Oral.Susp) 30 ml PO Q6H PRN PRN Reason: Heartburn/Nausea Last Admin: 06/13/21 19:33 Dose: 30 ml Documented by: Amlodipine Besylate (Amlodipine Besylate 5 Mg Tablet) 5 mg PO DAILY SHANEL; Protocol Last Admin: 06/18/21 09:40 Dose: Not Given Documented by: Artificial Tears (Artificial Tears 15 Ml Drops) 2 drop EYE-BOTH Q4H PRN PRN Reason: Dry Eyes Last Admin: 06/14/21 00:52 Dose: 2 drop Documented by: Diphenhydramine HCl (Diphenhydramine Hcl 25 Mg Tablet) 50 mg PO Q8H PRN PRN Reason: agitation Last Admin: 06/19/21 00:46 Dose: 50 mg Documented by: Hydroxyzine HCl (Hydroxyzine Hcl 25 Mg Tablet) 25 mg PO BEDTIME PRN PRN Reason: Anxiety Lorazepam (Lorazepam 1 Mg Tablet) 1 mg PO Q4H PRN PRN Reason: psychotic agitation Last Admin: 06/15/21 00:37 Dose: 1 mg Documented by: Magnesium Hydroxide (Milk Of Magnesia 30 Ml Oral.Susp) 30 ml PO DAILY PRN PRN Reason: Constipation Nicotine Polacrilex (Nicotine Polacrilex 2 Mg Gum) 4 mg BUCCAL Q2H PRN PRN Reason: Nicotine Cravings Last Admin: 06/11/21 19:46 Dose: 4 mg Documented by: Olanzapine (Olanzapine 10 Mg Tablet) 10 mg PO Q4H PRN PRN Reason: agitation Last Admin: 06/16/21 22:27 Dose: 10 mg Documented by: Olanzapine (Olanzapine 10 Mg Tablet) 10 mg PO BEDTIME [facility] Last Admin: 06/18/21 20:37 Dose: 10 mg Documented by: Paliperidone Palmitate (Paliperidone Palmitate 234 Mg/1.5 Ml Syringe) 234 mg IM Q30D [facility] Last Admin: 06/16/21 20:18 Dose: 234 mg Documented by: Trazodone HCl (Trazodone Hcl 100 Mg Tablet) 100 mg PO BEDTIME SHANEL Last Admin: 06/19/21 00:46 Dose: 100 mg Documented by: Allergies Allergies Allergy/AdvReac Type Severity Reaction Status Date / Time No Known Allergies Allergy Unverified 11/05/19 18:52 [No Known Allergies*] Assessment & Plan Assessment & Plan (1) Schizoaffective disorder, bipolar type: Status: Acute Code(s): F25.0 - Schizoaffective disorder, bipolar type Plan 06/08/21- Continue to offer treatment/medication/support/education. Probable Section VII when Section XIIB expires 06/09- increase olanzapine to 20mg po qhs-it will be offered but pt can decline as not court mandated yet. 06/10: Ct treatment plan 06/11: Ct Rx plan. 06/12 olanzapine switched to risperidone 2mg po BID 06/13 continue current medications. 06/14- switch risperidone to qhs 4mg po qhs. as pt does not want to take in the morning. 06/15 continues risperione 4mg po qhs, add trazodone 100mg po qhs for sleep. 06/16 Pt agreed to RANDOLPH of paliperidone- given Invega Sustenna 234mg IM, next loading dose on Saturday 156mg IM. 06/17- d/c risperidone, start olanzapine 10mg qhs, next Invega Sustenna on 06/19, then monthly. 06/18 continue current plan. I spent ___25___ minutes with the patient and/or on the patient floor today, greater than?50% of which was spent counseling/coordinating care. Reason for contiued inpatient stay Substantial Risk for: harm to others
[2021-06-18 18:41] VITALS: BP 138/86; PULSE 89
[2021-06-18] MEDS: OLANZapine 10 MG TABLET PO (20:37)
[2021-06-19] MEDS: traZODone HCL 100 MG TABLET PO ×2 (00:46→21:27)
[2021-06-19] MEDS: diphenhydrAMINE HCL 25 MG TABLET 50 MG PO (00:46)
[2021-06-19] MEDS: Acetaminophen 325 MG TABLET 650 MG PO ×3 (01:45→23:53)
[2021-06-19 06:00] VITALS: BP 146/73; PULSE 107; RESP 18
[2021-06-19] MEDS: amLODIPine Besylate 5 MG TABLET PO (08:10)
--- NOTE | 2021-06-19 09:11 | P.PNPSI_ITS ---
Subjective Subjective Date of Service: 06/19/21 Reason For Visit: Psychosis Subjective Notes: Conditional Voluntary Interim History: Pt is less paranoid, social with select peers. His sleep is fair, better with combination of benadryl and olanzapine. He has been more visible today. Had visit with mother. Much less hypervigilant, not aggressive towards self or oth ers. pleasant, wanting to leave, some insight into need for treatment. Less AH/VH. Moved to his own room, as he is less paranoid. Medication Compliance: Yes Side effects from medications: No Review of Systems Acute medical concerns: No Review of Systems Review of Systems Yes Unobtainable due to mental status Reports behavioral changes, Reports confusion and Reports memory loss Psychiatric: Reports behavioral changes, Reports confusion, Reports difficulty concentrating, Reports auditory hallucinations, Reports anhedonia, Reports memory loss, Reports mood swings, Reports paranoia and Reports hallucinations Mental Status Exam Mental Status Exam Narrative: Appearance: casually groomed, fair hygiene in NAD Behavior:guarded, superficial psychomotor:some retardation noted Speech:clear, delayed response rate, minimally spontaneous, soft tone. Thought process:single word answers, some derailment at times, poverty of thought Thought content:not very talkative, Mood: okay Affect: constricted SI:denies HI:denies VH/AH:appears internally preoccupied. Delusions:no overt but paranoia noted. Insight/judgment:impaired x 2. Memory/cog: alert, not oriented to situation, impaired secondary to psychiatric problems. Diagnostics Vital Signs (24Hr): Vital Signs - 24 hr 06/19/21 19:47 06/20/21 06:00 Temperature 98.6 F Pulse Rate 120 H 114 H Respiratory Rate 18 Blood Pressure 122/63 137/85 Pulse Oximetry 99 BMI result Body Mass Index 27.8 Labs Results: 06/12/21 13:21 06/12/21 13:21 Medications Medications Current Medications Acetaminophen (Acetaminophen 325 Mg Tablet) 650 mg PO Q6H PRN PRN Reason: Headache/Pain Mild Scale (1-3) Last Admin: 06/20/21 06:40 Dose: 650 mg Documented by: Al Hydroxide/Mg Hydroxide (Magnesium Hydrox/Alum Hydrox 30 Ml Oral.Susp) 30 ml PO Q6H PRN PRN Reason: Heartburn/Nausea Last Admin: 06/13/21 19:33 Dose: 30 ml Documented by: Amlodipine Besylate (Amlodipine Besylate 5 Mg Tablet) 5 mg PO DAILY SHANEL; Protocol Last Admin: 06/19/21 08:10 Dose: 5 mg Documented by: Artificial Tears (Artificial Tears 15 Ml Drops) 2 drop EYE-BOTH Q4H PRN PRN Reason: Dry Eyes Last Admin: 06/14/21 00:52 Dose: 2 drop Documented by: Diphenhydramine HCl (Diphenhydramine Hcl 25 Mg Tablet) 50 mg PO Q8H PRN PRN Reason: agitation Last Admin: 06/19/21 00:46 Dose: 50 mg Documented by: Hydroxyzine HCl (Hydroxyzine Hcl 25 Mg Tablet) 25 mg PO BEDTIME PRN PRN Reason: Anxiety Lorazepam (Lorazepam 1 Mg Tablet) 1 mg PO Q4H PRN PRN Reason: psychotic agitation Last Admin: 06/15/21 00:37 Dose: 1 mg Documented by: Magnesium Hydroxide (Milk Of Magnesia 30 Ml Oral.Susp) 30 ml PO DAILY PRN PRN Reason: Constipation Nicotine Polacrilex (Nicotine Polacrilex 2 Mg Gum) 4 mg BUCCAL Q2H PRN PRN Reason: Nicotine Cravings Last Admin: 06/19/21 19:57 Dose: 4 mg Documented by: Olanzapine (Olanzapine 10 Mg Tablet) 10 mg PO Q4H PRN PRN Reason: agitation Last Admin: 06/20/21 03:37 Dose: 10 mg Documented by: Olanzapine (Olanzapine 10 Mg Tablet) 10 mg PO BEDTIME [facility] Last Admin: 06/19/21 21:27 Dose: 10 mg Documented by: Paliperidone Palmitate (Paliperidone Palmitate 234 Mg/1.5 Ml Syringe) 234 mg IM Q30D [facility] Last Admin: 06/16/21 20:18 Dose: 234 mg Documented by: Trazodone HCl (Trazodone Hcl 100 Mg Tablet) 100 mg PO BEDTIME [facility] Last Admin: 06/20/21 00:25 Dose: 100 mg Documented by: Allergies Allergies Allergy/AdvReac Type Severity Reaction Status Date / Time No Known Allergies Allergy Unverified 11/05/19 18:52 [No Known Allergies*] Assessment & Plan Assessment & Plan (1) Schizoaffective disorder, bipolar type: Status: Acute Code(s): F25.0 - Schizoaffective disorder, bipolar type Plan 06/08/21- Continue to offer treatment/medication/support/education. Probable Section VII when Section XIIB expires 06/09- increase olanzapine to 20mg po qhs-it will be offered but pt can decline as not court mandated yet. 06/10: Ct treatment plan 06/11: Ct Rx plan. 06/12 olanzapine switched to risperidone 2mg po BID 06/13 continue current medications. 06/14- switch risperidone to qhs 4mg po qhs. as pt does not want to take in the morning. 06/15 continues risperione 4mg po qhs, add trazodone 100mg po qhs for sleep. 06/16 Pt agreed to [facility] of paliperidone- given Invega Sustenna 234mg IM, next loading dose on Saturday 156mg IM. 06/17- d/c risperidone, start olanzapine 10mg qhs, next Invega Sustenna on 06/19, then monthly. 06/18 continue current plan. 06/19 continue tx, d/c 06/20 I spent __25____ minutes with the patient and/or on the patient floor today, greater than?50% of which was spent counseling/coordinating care. Reason for contiued inpatient stay Substantial Risk for: stable for discharge
[2021-06-19] MEDS: Nicotine Polacrilex 2 MG GUM 4 MG BUCCAL ×2 (16:19→19:57)
[2021-06-19 19:47] VITALS: BP 122/63; PULSE 120
[2021-06-19] MEDS: OLANZapine 10 MG TABLET PO (21:27)
[2021-06-20] MEDS: traZODone HCL 100 MG TABLET PO (00:25)
[2021-06-20] MEDS: OLANZapine 10 MG TABLET PO (03:37)
[2021-06-20 06:00] VITALS: BP 137/85; PULSE 114; RESP 18; TEMP 37; O2SAT 99
[2021-06-20] MEDS: Acetaminophen 325 MG TABLET 650 MG PO (06:40)
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
[2021-06-20] MEDS: amLODIPine Besylate 5 MG TABLET PO (09:36)
[2021-06-20] MEDS: Paliperidone Palmitate 156 MG/ML SYRINGE IM (11:18)
== END 2021-06-20 13:15 | disposition home or self-care (01) | DRG 750 ==
LOC: HO.ED 06-05 18:58 → HO.PM5 06-06 21:29
PROVIDERS: Nurse Practitioner Family; Admitting Provider Psychiatry & Neurology Psychiatry; Emergency Provider Emergency Medicine Emergency Medical Services; Visit Provider Social Worker
DX: F25.0 Schizoaffective disorder, bipolar type (principal); Z59.02 Unsheltered homelessness; F17.210 Nicotine dependence, cigarettes, uncomplicated; Z20.822 Contact with and (suspected) exposure to COVID-19; Z91.14 Patient's other noncompliance with medication regimen; Z71.6 Tobacco abuse counseling; Z79.899 Other long term (current) drug therapy
CPT/HCPCS: 0241U; 36415; 80048; 80053; 80061; 80307; 81003; 82077; 83036; 85025; 87491; 87591; 87651; 93005; 96372; 99285; J0696; J2426; Q0163

== ENCOUNTER 2021-07-24 20:09 | Inpatient (IN) | payer OTHER, MEDICAID, SELFPAY ==
[2021-07-24 20:15] VITALS: BP 144/78; PULSE 107; RESP 15; TEMP 36.1; O2SAT 98; BMI 25.1
[2021-07-24 21:15] LABS: MANUAL DIFF FLAG NO
[2021-07-24 21:18] LABS: Amphetamine Screen Urine Not Detected (Not Detect); Barbiturates, Urine Not Detected (Not Detect); Benzodiazepines Screen Urine Not Detected (Not Detect); Cannabinoid Screen Urine Not Detected (Not Detect); Cocaine Screen Urine Not Detected (Not Detect); Fentanyl, urine Not Detected (Not Detect); Opiate Screen Urine Not Detected (Not Detect); Phencyclidine Screen Urine Not Detected (Not Detect)
[2021-07-24 21:18] LABS: Basophils Absolute Auto 0.1 X10*3/uL (0.0-0.2); Basophils Percent Auto 0.5 % (0-2); Eosinophils Absolute Auto 0.6 X10*3/uL (0.0-0.4); Eosinophils Percent Auto 4.5 % (0-4); Hemoglobin 10.7 g/dl (14.0-18.0); Imm Gran Abs Auto 0.04 X10*3/uL (0.00-0.03); Imm Gran Pct Auto 0.3 % (0.0-0.4); Lymphocytes Absolute Auto 2.2 X10*3/uL (1.2-4.9); Lymphocytes Percent Auto 17.1 % (20-40); Mean Corpuscular HGB Conc 32.4 g/dl (31.0-36.0); Mean Corpuscular Hemoglobin 30.5 pg (27.0-33.0); Monocytes Absolute Auto 1.1 X10*3/uL (0.1-1.2); Monocytes Percent Auto 8.4 % (2-11); Neutrophils Absolute Auto 8.9 x10*3/uL (2.0-8.3); Neutrophils Percent Auto 69.2 % (45-73); Platelet Count 338 X10*3/uL (160-400); Red Blood Count 3.51 X10*6/uL (4.60-5.80); Red Cell Distribution Width 13.4 % (11.0-16.0); White Blood Count 12.8 X10*3/uL (4.8-10.8)
[2021-07-24 21:23] LABS: COVID-19 Test Negative (Negative)
[2021-07-24 21:32] LABS: Ethanol < 10 mg/dL
[2021-07-24 21:34] LABS: Anion Gap 12 (12-20); Blood Urea Nitrogen 7 mg/dL (9-16); Calcium 8.8 mg/dL (8.4-10.2); Carbon Dioxide 27 mmol/L (22-29); Chloride 103 mmol/L (96-108); Creatinine Clr Calc Pharmacy 106.5; Estimated Glomerular Filt Rate > 60; Glucose Random 99 mg/dL (60-115); Potassium 3.7 mmol/L (3.3-5.1); Sodium 138 mmol/L (135-145)
--- NOTE | 2021-07-24 21:56 | ED.PSYCH ---
HPI - Psych General Chief Complaint: Psychiatric Symptoms <JENNIFER Mcdonald Last Filed: 07/25/21 01:30> Stated Complaint: Crisis <JENNIFER Mcdonald Last Filed: 07/25/21 01:30> Time Seen by Provider: 07/24/21 22:01 <JENNIFER Mcdonald Last Filed: 07/25/21 01:30> Source: patient <JENNIFER Mcdonald Last Filed: 07/25/21 01:30> Mode of arrival: ambulatory <JENNIFER Mcdonald Last Filed: 07/25/21 01:30> Limitations: no limitations <JENNIFER Mcdonald Last Filed: 07/25/21 01:30> History of Present Illness HPI Narrative: 31 yold male presents to the ED for Suicidal ideation. Patient has pmh of schizoaffective disorder, bipolar presenting to the ED for suicidal ideation. patient did not specify plans. patient has not been compliant with his [employer] meds. Patient states no physical complaints. <JENNIFER Mcdonald Last Filed: 07/25/21 01:30> Related Data Home Medications: Previous Rx's Medication Instructions Recorded amlodipine 5 mg tablet 5 mg PO DAILY #30 tab 06/20/21 diphenhydramine HCl 50 mg capsule 50 mg PO BEDTIME #30 cap 06/20/21 olanzapine 20 mg tablet 20 mg PO BEDTIME #30 tab 06/20/21 paliperidone palmitate 234 mg/1.5 234 mg (1.5 mL) IM Q30D #1.5 ml 06/20/21 mL intramuscular syringe (Invega Sustenna) <JENNIFER Mcdonald Last Filed: 07/25/21 01:30> Allergies/Adverse Reactions: Allergies Allergy/AdvReac Type Severity Reaction Status Date / Time No Known Allergies Allergy Unverified 11/05/19 18:52 [No Known Allergies*] <JENNIFER Mcdonald Last Filed: 07/25/21 01:30> Review of Systems Review of Systems: suicide <JENNIFER Mcdonald Last Filed: 07/25/21 01:30> Yes all other systems are reviewed and are negative <JENNIFER Mcdonald Last Filed: 07/25/21 01:30> FOR[facility]LY [facility], LAT[facility] Past Medical History Medical History: Medical History (Updated 06/07/22 @ 01:27 by JENNIFER Mcdonald) Schizoaffective disorder, bipolar type <JENNIFER Mcdonald - Last Filed: 07/25/21 01:30> Social History Social History: Social History Household Members: Other Housing: Homeless Do you presently have visiting nurse or other home services: No Patient Tobacco Use Status: Current everyday Tobacco user Tobacco use type: Cigarette Cigarette Packs Per Day: 1 Cigarettes Per Day: 20.0 Years Smoked: 15years e-Cigarette/Vaping Use: Currently Using Second Hand Smoke Exposure: No Substance Use Type: Unknown Advance Directives: No Advance Directives Information Provided: No Guardian: No service: No Sexual orientation: Straight/Heterosexual <JENNIFER Mcdonald - Last Filed: 07/25/21 01:30> Physical Exam Vital Signs: Vital Signs: Last Vital Signs Temp 98.1 F 07/25/21 08:13 Pulse 82 07/25/21 08:13 Resp 07/25/21 08:13 BP 120/79 07/25/21 08:13 Pulse Ox 97 07/25/21 08:13 BMI result Body Mass Index 25.1 <JENNIFER Mcdonald - Last Filed: 07/25/21 01:30> Vital Signs: Last Vital Signs Temp 98.1 F 07/25/21 08:13 Pulse 82 07/25/21 08:13 Resp 07/25/21 08:13 BP 120/79 07/25/21 08:13 Pulse Ox 97 07/25/21 08:13 BMI result Body Mass Index 25.1 <JENNIFER Melgar - Last Filed: 07/25/21 09:09> Const: General: cooperative, healthy appearing, comfortable, no acute distress, well developed, alert, awake and Physically active <JENNIFER Mcdonald - Last Filed: 07/25/21 01:30> Orientation/consciousness: patient oriented x3 <JENNIFER Mcdonald - Last Filed: 07/25/21 01:30> HEENT: Head: Yes normal to inspection, Yes No palpable skull fracture present, Yes normocephalic, Yes atraumatic and No abrasion <JENNIFER Mcdonald - Last Filed: 07/25/21 01:30> Eyes: General: appearance normal, both eyes and all related structures <Harrison Shaggy, PA Bong Last Filed: 07/25/21 01:30> Neck: Neck: Yes normal visual inspection, Yes full ROM, Yes no lymphadenopathy, Yes no meningeal signs, Yes trachea midline, Yes supple, No anterior neck swelling and No tender <Harrison Shaggy, PA Bong Last Filed: 07/25/21 01:30> Chest: Chest palpation & inspection: normal inspection of the chest and normal palpation of entire chest wall <Harrison Shaggy, PA Bong Last Filed: 07/25/21 01:30> Resp: Effort & Inspection: normal respiratory effort and able to speak in complete sentences <JENNIFER Mcdonald Bong Last Filed: 07/25/21 01:30> Auscultation: clear to auscultation bilaterally <JENNIFER Mcdonald Bong Last Filed: 07/25/21 01:30> Cardio: Jugular venous distension: no JVD <Harrison Shaggy, PA Bong Last Filed: 07/25/21 01:30> Heart sounds: S1 normal heart sound present and S2 normal heart sound present <Harrison Shaggy, PA Bong Last Filed: 07/25/21 01:30> GI: Inspection: Yes normal to inspection and No abdominal wall ecchymosis <Harrison Shaggy, PA Bong Last Filed: 07/25/21 01:30> Palpation (GI): Soft to palpation, not firm, nontender, no guarding and not rigid <Harrison Shaggy, PA Bong Last Filed: 07/25/21 01:30> : General: No CVA tenderness and Yes no CVA tenderness <Harrison Shaggy, PA Bong Last Filed: 07/25/21 01:30> Back/Spine/Pelvis: Back: no CVA tenderness, No CVA tenderness and No back tenderness <JENNIFER Mcdonald Bong Last Filed: 07/25/21 01:30> Skin: General skin exam: no rashes or lesions noted and elasticity normal <JENNIFER Mcdonald Bong Last Filed: 07/25/21 01:30> Neuro: General: patient oriented x3, gait normal, tone normal, no meningeal signs and CN's II-XI intact bilaterally <JENNIFER Mcdonald Last Filed: 07/25/21 01:30> Cranial nerves: Yes CN's II-XII intact bilaterally <JENNIFER Mcdonald Last Filed: 07/25/21 01:30> Extrem: General: Yes normal to inspection and Yes full ROM <JENNIFER Mcdonald Last Filed: 07/25/21 01:30> Psych: Other: madisyn affect and labile <JENNIFER Mcdonald Last Filed: 07/25/21 01:30> Appearance: grossly normal and well kempt <JENNIFER Mcdonald Last Filed: 07/25/21 01:30> Course Course Course Narrative: labs and BHN ordered <JENNIFER Mcodnald Last Filed: 07/25/21 01:30> Reevaluation(s) Reevaluation #1: Patient evaluated by care team Abbey who states patient will stay overnight and be evaluated by Psychiatry in the morning <JENNIFER Mcdonald Last Filed: 07/25/21 01:30> Time: 01:27 <JENNIFER Mcdonald Last Filed: 07/25/21 01:30> Reevaluation #2: 07/25/21--physician observation initiated at 09:08. Vital signs stable, patient currently sleeping respirations unlabored, no complaints overnight. Pending care team follow-up this morning. Labs reviewed, H&H noted to be lower than priors > will repeat this AM <JENNIFER Melgar Last Filed: 07/25/21 09:09> Time: 09:08 <JENNIFER Melgar Last Filed: 07/25/21 09:09> MDM - Psych MDM Narrative Medical decision making narrative: Depression <JENNIFER Mcdonald Last Filed: 07/25/21 01:30> Lab Data Result diagrams: : 07/24/21 21:11 07/24/21 21:11 <JENNIFER Mcdonald Last Filed: 07/25/21 01:30> Labs: Lab Results 07/24/21 07/24/21 07/24/21 Range/Units 20:52 20:52 21:11 WBC 12.8 H (4.8-10.8) X10*3/uL RBC 3.51 L (4.60-5.80) X10*6/uL Hgb 10.7 L (14.0-18.0) g/dl Hct 33.0 L (42.0-52.0) % MCV 94.0 (80.0-98.0) fL MCH 30.5 (27.0-33.0) pg MCHC 32.4 (31.0-36.0) g/dl RDW 13.4 (11.0-16.0) % Plt Count 338 D (160-400) X10*3/uL MPV 10.0 (9.4-12.4) fL Immature Gran % (Auto) 0.3 (0.0-0.4) % Neut % (Auto) 69.2 (45-73) % Lymph % (Auto) 17.1 L (20-40) % Dale % (Auto) 8.4 (2-11) % Eos % (Auto) 4.5 H (0-4) % Baso % (Auto) 0.5 (0-2) % Lymph # (Auto) 2.2 (1.2-4.9) X10*3/uL Dale # (Auto) 1.1 (0.1-1.2) X10*3/uL Eos # (Auto) 0.6 H (0.0-0.4) X10*3/uL Baso # (Auto) 0.1 (0.0-0.2) X10*3/uL Abs Immat Gran (auto) 0.04 H (0.00-0.03) X10*3/uL Absolute Neuts (auto) 8.9 H (2.0-8.3) x10*3/uL Absolute Nucleated RBC 0.000 (0.0-0.012) X10*3/uL Nucleated RBC % (auto) 0.0 (0.0-0.2) /100WBC Sodium (135-145) mmol/L Potassium (3.3-5.1) mmol/L Chloride (96-108) mmol/L Carbon Dioxide (22-29) mmol/L Anion Gap (12-20) BUN (9-16) mg/dL Creatinine (0.5-1.4) mg/dL Estim Creat Clear Calc Estimated GFR Random Glucose (60-115) mg/dL Calcium (8.4-10.2) mg/dL Urine Opiates Screen Not Detected (Not Detect) Urine Fentanyl Screen Not Detected (Not Detect) Ur Barbiturates Screen Not Detected (Not Detect) Ur Phencyclidine Scrn Not Detected (Not Detect) Ur Amphetamines Screen Not Detected (Not Detect) U Benzodiazepines Scrn Not Detected (Not Detect) Urine Cocaine Screen Not Detected (Not Detect) U Marijuana (THC) Screen Not Detected (Not Detect) Ethyl Alcohol mg/dL COVID-19 (SEAN) Negative (Negative) COVID-19 Clin Com See Note 07/24/21 07/24/21 Range/Units 21:11 21:11 WBC (4.8-10.8) X10*3/uL RBC (4.60-5.80) X10*6/uL Hgb (14.0-18.0) g/dl Hct (42.0-52.0) % MCV (80.0-98.0) fL MCH (27.0-33.0) pg MCHC (31.0-36.0) g/dl RDW (11.0-16.0) % Plt Count (160-400) X10*3/uL MPV (9.4-12.4) fL Immature Gran % (Auto) (0.0-0.4) % Neut % (Auto) (45-73) % Lymph % (Auto) (20-40) % Dale % (Auto) (2-11) % Eos % (Auto) (0-4) % Baso % (Auto) (0-2) % Lymph # (Auto) (1.2-4.9) X10*3/uL Dale # (Auto) (0.1-1.2) X10*3/uL Eos # (Auto) (0.0-0.4) X10*3/uL Baso # (Auto) (0.0-0.2) X10*3/uL Abs Immat Gran (auto) (0.00-0.03) X10*3/uL Absolute Neuts (auto) (2.0-8.3) x10*3/uL Absolute Nucleated RBC (0.0-0.012) X10*3/uL Nucleated RBC % (auto) (0.0-0.2) /100WBC Sodium 138 (135-145) mmol/L Potassium 3.7 (3.3-5.1) mmol/L Chloride 103 (96-108) mmol/L Carbon Dioxide 27 (22-29) mmol/L Anion Gap 12 (12-20) BUN 7 L D (9-16) mg/dL Creatinine 1.07 (0.5-1.4) mg/dL Estim Creat Clear Calc 106.5 Estimated GFR > 60 Random Glucose 99 (60-115) mg/dL Calcium 8.8 D (8.4-10.2) mg/dL Urine Opiates Screen (Not Detect) Urine Fentanyl Screen (Not Detect) Ur Barbiturates Screen (Not Detect) Ur Phencyclidine Scrn (Not Detect) Ur Amphetamines Screen (Not Detect) U Benzodiazepines Scrn (Not Detect) Urine Cocaine Screen (Not Detect) U Marijuana (THC) Screen (Not Detect) Ethyl Alcohol < 10 mg/dL COVID-19 (SEAN) (Negative) COVID-19 Clin Com <JENNIFER Mcdonald - Last Filed: 07/25/21 01:30> Lab Results 07/24/21 07/24/21 07/24/21 Range/Units 20:52 20:52 21:11 WBC 12.8 H (4.8-10.8) X10*3/uL RBC 3.51 L (4.60-5.80) X10*6/uL Hgb 10.7 L (14.0-18.0) g/dl Hct 33.0 L (42.0-52.0) % MCV 94.0 (80.0-98.0) fL MCH 30.5 (27.0-33.0) pg MCHC 32.4 (31.0-36.0) g/dl RDW 13.4 (11.0-16.0) % Plt Count 338 D (160-400) X10*3/uL MPV 10.0 (9.4-12.4) fL Immature Gran % (Auto) 0.3 (0.0-0.4) % Neut % (Auto) 69.2 (45-73) % Lymph % (Auto) 17.1 L (20-40) % Dale % (Auto) 8.4 (2-11) % Eos % (Auto) 4.5 H (0-4) % Baso % (Auto) 0.5 (0-2) % Lymph # (Auto) 2.2 (1.2-4.9) X10*3/uL Dale # (Auto) 1.1 (0.1-1.2) X10*3/uL Eos # (Auto) 0.6 H (0.0-0.4) X10*3/uL Baso # (Auto) 0.1 (0.0-0.2) X10*3/uL Abs Immat Gran (auto) 0.04 H (0.00-0.03) X10*3/uL Absolute Neuts (auto) 8.9 H (2.0-8.3) x10*3/uL Absolute Nucleated RBC 0.000 (0.0-0.012) X10*3/uL Nucleated RBC % (auto) 0.0 (0.0-0.2) /100WBC Sodium (135-145) mmol/L Potassium (3.3-5.1) mmol/L Chloride (96-108) mmol/L Carbon Dioxide (22-29) mmol/L Anion Gap (12-20) BUN (9-16) mg/dL Creatinine (0.5-1.4) mg/dL Estim Creat Clear Calc Estimated GFR Random Glucose (60-115) mg/dL Calcium (8.4-10.2) mg/dL Urine Opiates Screen Not Detected (Not Detect) Urine Fentanyl Screen Not Detected (Not Detect) Ur Barbiturates Screen Not Detected (Not Detect) Ur Phencyclidine Scrn Not Detected (Not Detect) Ur Amphetamines Screen Not Detected (Not Detect) U Benzodiazepines Scrn Not Detected (Not Detect) Urine Cocaine Screen Not Detected (Not Detect) U Marijuana (THC) Screen Not Detected (Not Detect) Ethyl Alcohol mg/dL COVID-19 (SEAN) Negative (Negative) COVID-19 Clin Com See Note 07/24/21 07/24/21 Range/Units 21:11 21:11 WBC (4.8-10.8) X10*3/uL RBC (4.60-5.80) X10*6/uL Hgb (14.0-18.0) g/dl Hct (42.0-52.0) % MCV (80.0-98.0) fL MCH (27.0-33.0) pg MCHC (31.0-36.0) g/dl RDW (11.0-16.0) % Plt Count (160-400) X10*3/uL MPV (9.4-12.4) fL Immature Gran % (Auto) (0.0-0.4) % Neut % (Auto) (45-73) % Lymph % (Auto) (20-40) % Dale % (Auto) (2-11) % Eos % (Auto) (0-4) % Baso % (Auto) (0-2) % Lymph # (Auto) (1.2-4.9) X10*3/uL Dale # (Auto) (0.1-1.2) X10*3/uL Eos # (Auto) (0.0-0.4) X10*3/uL Baso # (Auto) (0.0-0.2) X10*3/uL Abs Immat Gran (auto) (0.00-0.03) X10*3/uL Absolute Neuts (auto) (2.0-8.3) x10*3/uL Absolute Nucleated RBC (0.0-0.012) X10*3/uL Nucleated RBC % (auto) (0.0-0.2) /100WBC Sodium 138 (135-145) mmol/L Potassium 3.7 (3.3-5.1) mmol/L Chloride 103 (96-108) mmol/L Carbon Dioxide 27 (22-29) mmol/L Anion Gap 12 (12-20) BUN 7 L D (9-16) mg/dL Creatinine 1.07 (0.5-1.4) mg/dL Estim Creat Clear Calc 106.5 Estimated GFR > 60 Random Glucose 99 (60-115) mg/dL Calcium 8.8 D (8.4-10.2) mg/dL Urine Opiates Screen (Not Detect) Urine Fentanyl Screen (Not Detect) Ur Barbiturates Screen (Not Detect) Ur Phencyclidine Scrn (Not Detect) Ur Amphetamines Screen (Not Detect) U Benzodiazepines Scrn (Not Detect) Urine Cocaine Screen (Not Detect) U Marijuana (THC) Screen (Not Detect) Ethyl Alcohol < 10 mg/dL COVID-19 (SEAN) (Negative) COVID-19 Clin Com <JENNIFER Melgar - Last Filed: 07/25/21 09:09> Discharge Plan Discharge Clinical Impression: Depression <JENNIFER Mcdonald - Last Filed: 07/25/21 01:30> Patient Disposition: Still a Patient <JENNIFER Mcdonald - Last Filed: 07/25/21 01:30> Prescriptions: No Action amlodipine 5 mg Tablet 5 mg PO DAILY Qty: 30 0RF Protocol: Hold for SBP< HOLD for SBP < : 90 diphenhydramine HCl 50 mg capsule 50 mg PO BEDTIME Qty: 30 0RF Invega Sustenna 234 mg/1.5 mL Syringe 234 mg IM Q30D Qty: 1.5 0RF olanzapine 20 mg tablet 20 mg PO BEDTIME Qty: 30 0RF <JENNIFER Mcdonald - Last Filed: 07/25/21 01:30>
[2021-07-24] MEDS: Ibuprofen 600 MG TABLET PO (22:44)
--- NOTE | 2021-07-25 06:47 | PC.NURSE ---
Patient slept through the night, no distress observed/reported, behavior non concerning, med rec completed/pending provider's approval, off his medication for a month, vss, patient was assessed by care team/pending disposition, DRE f/u in the morning, will continue to monitor.
--- NOTE | 2021-07-25 08:08 | PC.NURSE ---
patient appears to remain asleep at present respirations are even and unlabored patient appears in no distress
[2021-07-25 08:13] VITALS: BP 120/79; PULSE 82; RESP 17; TEMP 36.7; O2SAT 97
[2021-07-25 09:37] LABS: MANUAL DIFF FLAG NO
[2021-07-25 09:46] LABS: Basophils Absolute Auto 0.1 X10*3/uL (0.0-0.2); Basophils Percent Auto 0.4 % (0-2); Eosinophils Absolute Auto 0.7 X10*3/uL (0.0-0.4); Eosinophils Percent Auto 6.3 % (0-4); Hematocrit 34.6 % (42.0-52.0); Hemoglobin 11.1 g/dl (14.0-18.0); Imm Gran Abs Auto 0.04 X10*3/uL (0.00-0.03); Imm Gran Pct Auto 0.4 % (0.0-0.4); Lymphocytes Absolute Auto 1.9 X10*3/uL (1.2-4.9); Lymphocytes Percent Auto 17.3 % (20-40); Mean Corpuscular HGB Conc 32.1 g/dl (31.0-36.0); Mean Corpuscular Hemoglobin 30.2 pg (27.0-33.0); Mean Platelet Volume 9.8 fL (9.4-12.4); Monocytes Percent Auto 8.6 % (2-11); Neutrophils Absolute Auto 7.5 x10*3/uL (2.0-8.3); Platelet Count 336 X10*3/uL (160-400); Red Blood Count 3.68 X10*6/uL (4.60-5.80); Red Cell Distribution Width 13.4 % (11.0-16.0); White Blood Count 11.2 X10*3/uL (4.8-10.8)
--- NOTE | 2021-07-25 12:08 | PM.PSYCN ---
History of Present Illness Date of Service: 07/25/2021 Chief Complaint: Crisis Reason for Consult: paranoia/AH/VH. Requesting physician: Kathi Johnson Discussed with referring provider: Yes Sources of Information: patient interviewed, chart reviewed and crisis/core team assessment reviewed HPI Narrative: Mr. Gan is a 31 year-old male with hx of schizophrenia vs schizoaffective disorder, who was recently discharged from (06/2021) after treatment for paranoia delusions/ AH. This time he self presented to [facility] [place] reporting people are following him, feeling very anxious, AH. Utox was negative. In the ED, pt recognizes this health underwriter. He reports he does not feel safe, feels as if people are after him. He denies SI/HI. He reports paliperidone didn't let me sleep. Unclear if pt having akathisia or restless leg or just not sleeping and requesting Olanzapine instead- which was tried before during admission at higher doses but therapeutic effect was partial. He does have hx of dystonia and EPS with haldol. Past Psychiatric History: IP: [facility] [place] x2 Out Pt: Jhon states yes, but is not able to identify Trials: haldol (EPS), olanzapine, paliperidone, risperidone Medical Evaluation Reviewed: Yes [facility] Medical History (Updated 07/25/21 @ 01:27 by JENNIFER Mcdonald) Schizoaffective disorder, bipolar type Family History: schizophrenia Social History: Pt unable to articulate Per CARE- To [place] from [place] in 2009 Trauma History: Affirms without specifics Diagnostics Vital Signs (24Hr): Vital Signs - 24 hr 07/26/21 06:34 Temperature 97.5 F Pulse Rate 89 Respiratory Rate 17 Blood Pressure 121/75 Pulse Oximetry 97 Oxygen Delivery Method Room Air BMI result Body Mass Index 25.1 Labs Results: 07/25/21 09:29 07/24/21 21:11 Labs: Laboratory Results - last 48 hr 07/24/21 07/24/21 07/24/21 20:52 20:52 21:11 WBC 12.8 H RBC 3.51 L Hgb 10.7 L Hct 33.0 L MCV 94.0 MCH 30.5 MCHC 32.4 RDW 13.4 Plt Count 338 D MPV 10.0 Immature Gran % (Auto) 0.3 Neut % (Auto) 69.2 Lymph % (Auto) 17.1 L [place] % (Auto) 8.4 Eos % (Auto) 4.5 H Baso % (Auto) 0.5 Lymph # (Auto) 2.2 [place] # (Auto) 1.1 Eos # (Auto) 0.6 H Baso # (Auto) 0.1 Abs Immat Gran (auto) 0.04 H Absolute Neuts (auto) 8.9 H Absolute Nucleated RBC 0.000 Nucleated RBC % (auto) 0.0 Sodium Potassium Chloride Carbon Dioxide Anion Gap BUN Creatinine Estim Creat Clear Calc Estimated GFR Random Glucose Calcium Urine Opiates Screen Not Detected Urine Fentanyl Screen Not Detected Ur Barbiturates Screen Not Detected Ur Phencyclidine Scrn Not Detected Ur Amphetamines Screen Not Detected U Benzodiazepines Scrn Not Detected Urine Cocaine Screen Not Detected U Marijuana (THC) Screen Not Detected Ethyl Alcohol COVID-19 ([facility]AN) Negative COVID-[employer] See Note 07/24/21 07/24/21 07/25/21 21:11 21:11 09:29 WBC 11.2 H RBC 3.68 L Hgb 11.1 L Hct 34.6 L MCV 94.0 MCH 30.2 MCHC 32.1 RDW 13.4 Plt Count 336 MPV 9.8 Immature Gran % (Auto) 0.4 Neut % (Auto) 67.0 Lymph % (Auto) 17.3 L [place] % (Auto) 8.6 Eos % (Auto) 6.3 H Baso % (Auto) 0.4 Lymph # (Auto) 1.9 [place] # (Auto) 1.0 Eos # (Auto) 0.7 H Baso # (Auto) 0.1 Abs Immat Gran (auto) 0.04 H Absolute Neuts (auto) 7.5 Absolute Nucleated RBC 0.000 Nucleated RBC % (auto) 0.0 Sodium 138 Potassium 3.7 Chloride 103 Carbon Dioxide 27 Anion Gap 12 BUN 7 L D Creatinine 1.07 Estim Creat Clear Calc 106.5 Estimated GFR > 60 Random Glucose 99 Calcium 8.8 D Urine Opiates Screen Urine Fentanyl Screen Ur Barbiturates Screen Ur Phencyclidine Scrn Ur Amphetamines Screen U Benzodiazepines Scrn Urine Cocaine Screen U Marijuana (THC) Screen Ethyl Alcohol < 10 COVID-19 (SEAN) COVID-19 [email or web address] 07/26/21 09:59 WBC RBC Hgb Hct MCV MCH MCHC RDW Plt Count MPV Immature Gran % (Auto) Neut % (Auto) Lymph % (Auto) [place] % (Auto) Eos % (Auto) Baso % (Auto) Lymph # (Auto) [place] # (Auto) Eos # (Auto) Baso # (Auto) Abs Immat Gran (auto) Absolute Neuts (auto) Absolute Nucleated RBC Nucleated RBC % (auto) Sodium Potassium Chloride Carbon Dioxide Anion Gap BUN Creatinine Estim Creat Clear Calc Estimated GFR Random Glucose Calcium Urine Opiates Screen Urine Fentanyl Screen Ur Barbiturates Screen Ur Phencyclidine Scrn Ur Amphetamines Screen U Benzodiazepines Scrn Urine Cocaine Screen U Marijuana (THC) Screen Ethyl Alcohol COVID-19 (SEAN) Negative COVID-19 Clin Com See Note Mental Status Exam Mental Status Exam Narrative: Appearance: wearing hospital gown, fair hygiene in NAD Behavior:cooperative psychomotor: no agitation or retardation noted Speech:clear, normal rate/rhythm/volume, spontaneous Thought process:mostly linear Thought content:fearful, thinking people going after him Mood: anxious Affect: congruent SI:none HI:none VH/AH:+AH, not command Delusions:paranoid/persecutory delusions Insight/judgment:some insight into need for treatment s/s to paranoia Memory/cog: alert, oriented x 3. Medications Medications Current Medications Lorazepam (Lorazepam 1 Mg Tablet) 1 mg PO BEDTIME [facility] Last Admin: 07/25/21 20:16 Dose: 1 mg Olanzapine (Olanzapine Odt 10 Mg Tab.Rapdis) 10 mg TRANSLINGU BID [facility] Last Admin: 07/25/21 20:16 Dose: 10 mg Olanzapine (Olanzapine 5 Mg Tablet) 5 mg PO Q6H PRN PRN Reason: agitation Allergies Allergies Allergy/AdvReac Type Severity Reaction Status Date / Time No Known Allergies Allergy Unverified 11/05/19 18:52 [No Known Allergies*] Assessment & Plan Assessment & Plan (1) Schizoaffective disorder, bipolar type: Status: Acute Code(s): F25.0 - Schizoaffective disorder, bipolar type Plan Mr. Gan is a 31 year-old male with hx of schizoaffective disorder. Discharged from on 06/20/21 after treatment for persecutory/paranoid delusions. This time he self presented reporting AH, paranoia. After discussing risks, benefits and alternative treatment options, pt agreed to start Olanzapine. PLAN 1. Inpatient level of care at psychiatric unit for further stabilization, safety and containment- care team and BHN working on this 2. Start Olanzapine 10mg po BID 3. obtain collateral information 4. aftercare planning. I spent ___25___ minutes with the patient and/or on the patient floor today, greater than?50% of which was spent counseling/coordinating care.
[2021-07-25] MEDS: OLANZapine ODT 10 MG TAB.RAPDIS TRANSLINGU ×2 (14:15→20:16)
[2021-07-25] MEDS: Acetaminophen 325 MG TABLET 650 MG PO (16:15)
--- NOTE | 2021-07-25 17:55 | PC.NURSE ---
client appears to make snoring respiratory sounds even when awake
[2021-07-25] MEDS: LORazepam 1 MG TABLET PO (20:16)
--- NOTE | 2021-07-25 21:43 | MHC.CARE ---
Pt has been pre-accepted for admission to [facility] [place] adult psychiatric unit on 07/26. Authorization #[id number] by Liliana Braun for 3 days starting on 07/26.
[2021-07-26 06:34] VITALS: BP 121/75; PULSE 89; RESP 17; TEMP 36.4; O2SAT 97
--- NOTE | 2021-07-26 06:51 | PC.NURSE ---
Patient slept through the night, no distress observed/reported, medication compliant, disposition per Care Team is section 12 inpatient bed search, VSS, behavior appropriate and non concerning, contracted for the safety, will continue to monitor
--- NOTE | 2021-07-26 07:30 | PC.NURSE ---
patient appears to remain asleep at present respirations are even and unlabored patient appears in no distress
[2021-07-26 10:26] LABS: COVID-19 Test Negative (Negative); IDNOW Serial# 16C4AD1C
[2021-07-26] MEDS: OLANZapine ODT 10 MG TAB.RAPDIS TRANSLINGU ×2 (13:50→20:18)
[2021-07-26 18:55] VITALS: BP 103/56; PULSE 109; RESP 16; TEMP 36.8; O2SAT 98
[2021-07-26] MEDS: LORazepam 1 MG TABLET PO (20:18)
[2021-07-26] MEDS: traZODone HCL 50 MG TABLET PO (20:19)
--- NOTE | 2021-07-27 00:10 | PC.ADMIT ---
Patient is a 31 year old single bilingual Russian/Serbian speaking male admitted as CV admission to at 1847 and placed on 15 minute safety checks. He is currently homeless and presented to the [facility] endorsing SI with no plan, poor sleep and medication noncompliance. He has been on M5 in the past month for a similar presentation. Patient was medically cleared in the ED, evaluated by the CARE team and deemed in need of IPLOC d/t being at risk for unintentional harm to himself or harm from others. Patient was slightly anxious during admission process and brief with his answers. He denied any SI, HI, AH or VH. He was eager to finish the admission and go to bed. Patient had been noncompliant with medications and has no current providers. Medications were restarted in the ED and will continue on M5. Patient settled into the unit with no issues.
[2021-07-27 06:44] VITALS: BP 113/64; PULSE 81; RESP 14; TEMP 36.7; O2SAT 98
[2021-07-27] MEDS: OLANZapine ODT 10 MG TAB.RAPDIS TRANSLINGU ×2 (08:31→19:13)
[2021-07-27 09:15] LABS: Estimated Average Glucose 111 mg/dL; Hemoglobin A1c % 5.5 %
[2021-07-27 09:51] LABS: Cholesterol 131 mg/dL; HDL Cholesterol 42 mg/dL; LDL Cholesterol Calculated 74 mg/dl; Magnesium 2.2 mg/dL (1.6-2.6); Triglycerides 79 mg/dL
[2021-07-27 10:11] LABS: Free T4 (Free Thyroxine) 1.04 ng/dL (0.71-1.85); Thyroid Stimulating Hormone 1.23 uIU/mL (0.32-4.0)
[2021-07-27 10:20] LABS: Folate 12.1 ng/mL (> or = 4.0); Vitamin B12 162 pg/mL (200-900)
--- NOTE | 2021-07-27 14:46 | P.HPPS_ITS ---
HPI Date of Service: 07/27/21 Chief Complaint: SI, Schizoaffective DO Sources of Information: patient interviewed, chart reviewed and crisis/core team assessment reviewed HPI Subjective Notes: [place] Warning and Conditional Voluntary Healthcare Proxy: No Guardianship: No Medical Problems Affecting Mental Status: No Narrative: 31 yo male, hx of schizoaffective disorder, presents with perceptions that people are following him and placing him in danger. Also reports AH, anxiety. Today, Jhon is interviewed in bed as he is sedate. He reports that he was very frightened when in the community, but now he can relax because he is safe and with people who understand. Discussed medications. Pt prefers to trial Olanzapine again po and believes Invega was not useful for him. [employer] pt reports he was not sleeping, felt SI, and had stopped medicines Past Psychiatric History: IP: C x2 Out Pt: Jhon states yes, but is not able to identify Trials: haldol (EPS), olanzapine, paliperidone, risperidone Medical Evaluation Reviewed: Yes FOR[facility]LY [facility], [facility] Medical History Schizoaffective disorder, bipolar type Family History: schizophrenia Social History: Pt unable to articulate Per CARE- To [place] from [place] in 2009 Substance History: Toxic screen negative. Jhon denies Trauma History: Affirms without specifics Diagnostics Vital Signs (24Hr): Vital Signs - 24 hr 07/26/21 18:55 07/27/21 06:44 Temperature 98.3 F 98.0 F Pulse Rate 109 H 81 Respiratory Rate 16 14 Blood Pressure 103/56 L 113/64 Pulse Oximetry 98 98 Oxygen Delivery Method Room Air Room Air BMI result Body Mass Index 25.1 Labs Results: 07/25/21 09:29 07/24/21 21:11 Labs: Laboratory Results - last 48 hr 07/26/21 07/27/21 07/27/21 09:59 08:16 08:16 Estimat Average Glucose 111 Hemoglobin A1c % 5.5 Magnesium 2.2 Triglycerides 79 Cholesterol 131 LDL Cholesterol, Calc 74 HDL Cholesterol 42 Vitamin B12 Folate TSH 1.23 Free T4 1.04 COVID-19 ([facility]) Negative COVID-19 Clin Com See Note 07/27/21 08:16 Estimat Average Glucose Hemoglobin A1c % Magnesium Triglycerides Cholesterol LDL Cholesterol, Calc HDL Cholesterol Vitamin B12 162 L Folate 12.1 TSH Free T4 COVID-19 ([facility]) COVID-19 Clin Com Meds/Allergies Allergies Allergies Allergy/AdvReac Type Severity Reaction Status Date / Time No Known Allergies Allergy Unverified 11/05/19 18:52 [No Known Allergies*] Mental Status Exam Mental Status Exam Patient Appearance: Fatigued Patient Orientation: Person, Place and Situation Level of Consciousness: Awake and Sedated Patient Behavior: Appropriate, Talkative, Cooperative and Good Eye Contact Mood Description: Withdrawn and Flat Affect Description: Flat Patient Cognition Impaired: Yes Ability to Follow Directions: Fair Speech Pattern: Spontaneous Speech Memory Description: Remote Impaired and Episodic Impaired Hallucinations: Auditory Delusions: Paranoid Ideation and Present Thought Process: Distracted and Slowed Thinking Thought Content: positive for [place], positive for Circumstantial, positive for Tangential and positive for Suicidal Ideation Depressive Symptoms: Insomnia, Diff. Making Decisions, Difficulty Sleeping, Thoughts of /Suicide and Difficulty Concentrating Judgement: Poor Assessment & Plan Assessment & Plan (1) Schizoaffective disorder, bipolar type: Status: Acute Code(s): F25.0 - Schizoaffective disorder, bipolar type Plan 31 yo male, hx of schizoaffective disorder. Reports he stopped medications due to side effects and began to have recurrence of symptoms with belief that he was in danger from others following him, auditory perceptual alterations and anxiety. Plan: Continue Olanzapine B12, MVI daily Iron Profile Collateral contacts Patient educated on: medication risk/benefits and therapeutic strategies Informed Consent: further education needed Reason for continued inpatient stay Substantial Risk for: inability to function and rapid decompensation
[2021-07-27 16:25] VITALS: BP 87/53; PULSE 121
[2021-07-27] MEDS: LORazepam 1 MG TABLET PO (19:13)
[2021-07-28 06:00] VITALS: BP 106/58; PULSE 118; RESP 20; TEMP 36.3; O2SAT 98
[2021-07-28 08:56] LABS: Iron 66 mcg/dL (45-160); Percent Iron Saturation 18 % (15-50); Total Iron Binding Capacity 358 mcg/dL (228-428); Unsaturated Iron Binding 292 ug/dL
[2021-07-28] MEDS: Cyanocobalamin (Vitamin B-12) 100 MCG TABLET PO (09:18)
[2021-07-28] MEDS: Multivitamin TABLET 1 TAB PO (09:18)
[2021-07-28] MEDS: OLANZapine ODT 10 MG TAB.RAPDIS TRANSLINGU ×2 (09:18→18:48)
[2021-07-28 16:38] VITALS: BP 93/53; PULSE 68
--- NOTE | 2021-07-28 17:41 | P.PNPSI_ITS ---
Subjective Subjective Date of Service: 07/28/21 Reason For Visit: SI, Schizoaffective DO Interim History: Patient seen and discussed with team. Patient evaluated today and upon interview he denies side effects on zyprexa. Says his mood is good. Sleep is good. Feels safe. In the milieu, patient is safe and appropriate in behavior, pacing the halls. Denies SI/SIB/HI upon inquiry. Denies irritability or assaultive ideation. Says he feels safe. Medication Compliance: Yes Side effects from medications: No Attending Groups: Intermittent Review of Systems Acute medical concerns: No Medical Review of Systems: unchanged Mental Status Exam Mental Status Exam Narrative: Patient Appearance: Fatigued Patient Orientation: Person, Place and Situation Level of Consciousness: Awake and Sedated Patient Behavior: Appropriate, Talkative, Cooperative and Good Eye Contact Mood Description: Withdrawn and Flat Affect Description: Flat Patient Cognition Impaired: Yes Ability to Follow Directions: Fair Speech Pattern: Spontaneous Speech Memory Description: Remote Impaired and Episodic Impaired Hallucinations: Auditory Delusions: Paranoid Ideation and Present Thought Process: Distracted and Slowed Thinking Thought Content: positive for [place], positive for Circumstantial, positive for Tangential and positive for Suicidal Ideation Depressive Symptoms: Insomnia, Diff. Making Decisions, Difficulty Sleeping, Thoughts of /Suicide and Difficulty Concentrating Judgement: Poor Diagnostics Vital Signs (24Hr): Vital Signs - 24 hr 07/28/21 06:00 07/28/21 16:38 Temperature 97.3 F Pulse Rate 118 H 68 Respiratory Rate 20 Blood Pressure 106/58 L 93/53 L Pulse Oximetry 98 Oxygen Delivery Method Room Air BMI result Body Mass Index 25.1 Labs Results: 07/25/21 09:29 07/24/21 21:11 Labs: Laboratory Results - last 48 hr 07/27/21 07/27/21 07/27/21 08:16 08:16 08:16 Estimat Average Glucose 111 Hemoglobin A1c % 5.5 Magnesium 2.2 Iron TIBC % Saturation Unsat Iron Binding Triglycerides 79 Cholesterol 131 LDL Cholesterol, Calc 74 HDL Cholesterol 42 Vitamin B12 162 L Folate 12.1 TSH 1.23 Free T4 1.04 07/28/21 08:20 Estimat Average Glucose Hemoglobin A1c % Magnesium Iron 66 TIBC 358 % Saturation 18 Unsat Iron Binding 292 Triglycerides Cholesterol LDL Cholesterol, Calc HDL Cholesterol Vitamin B12 Folate TSH Free T4 Medications Medications Current Medications Acetaminophen (Acetaminophen 325 Mg Tablet) 650 mg PO Q6H PRN PRN Reason: Headache/Pain Mild Scale (1-3) Al Hydroxide/Mg Hydroxide (Magnesium Hydrox/Alum Hydrox 30 Ml Oral.Susp) 30 ml PO Q6H PRN PRN Reason: Heartburn/Nausea Cyanocobalamin (Cyanocobalamin (Vitamin B-12) 100 Mcg Tablet) 100 mcg PO DAILY [facility] Last Admin: 07/28/21 09:18 Dose: 100 mcg Hydroxyzine HCl (Hydroxyzine Hcl 25 Mg Tablet) 25 mg PO Q6H PRN PRN Reason: Anxiety Lorazepam (Lorazepam 1 Mg Tablet) 1 mg PO BEDTIME [facility] Last Admin: 07/27/21 19:13 Dose: 1 mg Magnesium Hydroxide (Milk Of Magnesia 30 Ml Oral.Susp) 30 ml PO DAILY PRN PRN Reason: Constipation Multivitamins/Vitamin C (Multivitamin Tablet) 1 tab PO DAILY [facility] Last Admin: 07/28/21 09:18 Dose: 1 tab Olanzapine (Olanzapine Odt 10 Mg Tab.Rapdis) 10 mg TRANSLINGU BID [facility] Last Admin: 07/28/21 09:18 Dose: 10 mg Olanzapine (Olanzapine 5 Mg Tablet) 5 mg PO Q6H PRN PRN Reason: agitation Trazodone HCl (Trazodone Hcl 50 Mg Tablet) 50 mg PO BEDTIME PRN PRN Reason: Insomnia Last Admin: 07/26/21 20:19 Dose: 50 mg Allergies Allergies Allergy/AdvReac Type Severity Reaction Status Date / Time No Known Allergies Allergy Unverified 11/05/19 18:52 [No Known Allergies*] Assessment & Plan Assessment & Plan (1) Schizoaffective disorder, bipolar type: Status: Acute Code(s): F25.0 - Schizoaffective disorder, bipolar type Plan 31 yo male, hx of schizoaffective disorder. Reports he stopped medications due to side effects and began to have recurrence of symptoms with belief that he was in danger from others following him, auditory perceptual alterations and anxiety. Plan: Continue Olanzapine B12, MVI daily Iron Profile Collateral contacts I spent minutes with the patient and/or on the patient floor today, greater than?50% of which was spent counseling/coordinating care. Patient educated on: medication risk/benefits and therapeutic strategies Reason for contiued inpatient stay Substantial Risk for: inability to function, rapid decompensation and med/psych decompensation
[2021-07-28] MEDS: LORazepam 1 MG TABLET PO (18:49)
[2021-07-29 06:00] VITALS: BP 101/59; PULSE 102; RESP 18; TEMP 36.7; O2SAT 98
[2021-07-29] MEDS: Cyanocobalamin (Vitamin B-12) 100 MCG TABLET PO (08:58)
[2021-07-29] MEDS: Multivitamin TABLET 1 TAB PO (08:58)
[2021-07-29] MEDS: OLANZapine ODT 10 MG TAB.RAPDIS TRANSLINGU ×2 (08:58→19:58)
[2021-07-29 18:00] VITALS: BP 96/68; PULSE 103; RESP 18; TEMP 36.8; O2SAT 97
[2021-07-29] MEDS: LORazepam 1 MG TABLET PO (19:58)
[2021-07-29] MEDS: traZODone HCL 50 MG TABLET PO (21:43)
--- NOTE | 2021-07-29 23:56 | P.PNPSI_ITS ---
Subjective Subjective Date of Service: 07/29/21 Reason For Visit: SI, Schizoaffective DO Interim History: Patient seen. He reports he is feeling well. He was minimally engaged. He had a blunted affect. He denies SI, AVH. No overt psychosis but appears guarded and paranoid. He is isolative. Per team, appears internally preoccupied. Review of Systems Review of Systems suicide Yes all other systems are reviewed and are negative Psychiatric: Reports abnormal sleep pattern, Reports anxiety, Reports depression, Reports difficulty concentrating, Reports auditory hallucinations, Reports hopelessness, Reports anhedonia, Reports panic attacks and Reports suicidal ideation Mental Status Exam Mental Status Exam Narrative: Appearance: wearing hospital gown, fair hygiene in NAD Behavior:cooperative psychomotor: no agitation or retardation noted Speech:clear, normal rate/rhythm/volume, spontaneous Thought process:mostly linear Thought content:fearful, thinking people going after him Mood: anxious Affect: congruent SI:none HI:none VH/AH:+AH, not command Delusions:paranoid/persecutory delusions Insight/judgment:some insight into need for treatment s/s to paranoia Memory/cog: alert, oriented x 3. Patient Appearance: Fatigued Patient Orientation: Person, Place and Situation Level of Consciousness: Awake and Sedated Patient Behavior: Appropriate, Talkative, Cooperative and Good Eye Contact Mood Description: Withdrawn and Flat Affect Description: Flat Patient Cognition Impaired: Yes Ability to Follow Directions: Fair Speech Pattern: Spontaneous Speech Memory Description: Remote Impaired and Episodic Impaired Diagnostics Vital Signs (24Hr): Vital Signs - 24 hr 07/29/21 06:00 07/29/21 18:00 Temperature 98.1 F 98.3 F Pulse Rate 102 H 103 H Respiratory Rate 18 18 Blood Pressure 101/59 L 96/68 Pulse Oximetry 98 97 Oxygen Delivery Method Room Air BMI result Body Mass Index 25.1 Labs Results: 07/25/21 09:29 07/24/21 21:11 Labs: Laboratory Results - last 48 hr 07/28/21 08:20 Iron 66 TIBC 358 % Saturation 18 Unsat Iron Binding 292 Medications Medications Current Medications Acetaminophen (Acetaminophen 325 Mg Tablet) 650 mg PO Q6H PRN PRN Reason: Headache/Pain Mild Scale (1-3) Al Hydroxide/Mg Hydroxide (Magnesium Hydrox/Alum Hydrox 30 Ml Oral.Susp) 30 ml PO Q6H PRN PRN Reason: Heartburn/Nausea Cyanocobalamin (Cyanocobalamin (Vitamin B-12) 100 Mcg Tablet) 100 mcg PO DAILY [facility] Last Admin: 07/29/21 08:58 Dose: 100 mcg Hydroxyzine HCl (Hydroxyzine Hcl 25 Mg Tablet) 25 mg PO Q6H PRN PRN Reason: Anxiety Lorazepam (Lorazepam 1 Mg Tablet) 1 mg PO BEDTIME [facility] Last Admin: 07/29/21 19:58 Dose: 1 mg Magnesium Hydroxide (Milk Of Magnesia 30 Ml Oral.Susp) 30 ml PO DAILY PRN PRN Reason: Constipation Multivitamins/Vitamin C (Multivitamin Tablet) 1 tab PO DAILY [facility] Last Admin: 07/29/21 08:58 Dose: 1 tab Olanzapine (Olanzapine Odt 10 Mg Tab.Rapdis) 10 mg TRANSLINGU BID [facility] Last Admin: 07/29/21 19:58 Dose: 10 mg Olanzapine (Olanzapine 5 Mg Tablet) 5 mg PO Q6H PRN PRN Reason: agitation Trazodone HCl (Trazodone Hcl 50 Mg Tablet) 50 mg PO BEDTIME PRN PRN Reason: Insomnia Last Admin: 07/29/21 21:43 Dose: 50 mg Allergies Allergies Allergy/AdvReac Type Severity Reaction Status Date / Time No Known Allergies Allergy Unverified 11/05/19 18:52 [No Known Allergies*] Assessment & Plan Assessment & Plan (1) Schizoaffective disorder, bipolar type: Status: Acute Code(s): F25.0 - Schizoaffective disorder, bipolar type Plan 31 yo male, hx of schizoaffective disorder. Reports he stopped medications due to side effects and began to have recurrence of symptoms with belief that he was in danger from others following him, auditory perceptual alterations and anxiety. Plan: Continue Olanzapine B12, MVI daily Iron Profile Collateral contacts I spent minutes with the patient and/or on the patient floor today, greater than?50% of which was spent counseling/coordinating care. Reason for contiued inpatient stay Substantial Risk for: inability to function and rapid decompensation
[2021-07-30 06:00] VITALS: BP 99/62; PULSE 106; RESP 18; TEMP 36.6; O2SAT 98
[2021-07-30] MEDS: Multivitamin TABLET 1 TAB PO (09:17)
[2021-07-30] MEDS: OLANZapine ODT 10 MG TAB.RAPDIS TRANSLINGU ×2 (09:17→18:51)
[2021-07-30] MEDS: Cyanocobalamin (Vitamin B-12) 100 MCG TABLET PO (09:17)
--- NOTE | 2021-07-30 14:14 | P.PNPSI_ITS ---
Subjective Subjective Date of Service: 07/30/21 Reason For Visit: SI, Schizoaffective DO Interim History: Patient seen and discussed with team. Patient evaluated today and upon interview he denies side effects on zyprexa. Says his mood is good. Sleep is good. Feels safe. He snores a lot which is repeatedly noted by staff and his roommate. In the milieu, patient is safe and appropriate in behavior, pacing the halls. Denies SI/SIB/HI upon inquiry. Denies irritability or assaultive ideation. Says he feels safe. Review of Systems Review of Systems suicide Yes all other systems are reviewed and are negative Psychiatric: Reports abnormal sleep pattern, Reports anxiety, Reports depression, Reports difficulty concentrating, Reports auditory hallucinations, Reports hopelessness, Reports anhedonia, Reports panic attacks and Reports suicidal ideation Mental Status Exam Mental Status Exam Narrative: Patient Appearance: Fatigued Patient Orientation: Person, Place and Situation Level of Consciousness: Awake and Sedated Patient Behavior: Appropriate, Talkative, Cooperative and Good Eye Contact Mood Description: Withdrawn and Flat Affect Description: Flat Patient Cognition Impaired: Yes Ability to Follow Directions: Fair Speech Pattern: Spontaneous Speech Memory Description: Remote Impaired and Episodic Impaired Hallucinations: Auditory Delusions: Paranoid Ideation and Present Thought Process: Distracted and Slowed Thinking Thought Content: positive for [place], positive for [place]um[place], positive for Tangential and positive for Suicidal Ideation Depressive Symptoms: Insomnia, Diff. Making Decisions, Difficulty Sleeping, Thoughts of /Suicide and Difficulty Concentrating Judgement: Poor Patient Appearance: Fatigued Patient Orientation: Person, Place and Situation Level of Consciousness: Awake and Sedated Patient Behavior: Appropriate, Talkative, Cooperative and Good Eye Contact Mood Description: Withdrawn and Flat Affect Description: Flat Patient Cognition Impaired: Yes Ability to Follow Directions: Fair Speech Pattern: Spontaneous Speech Memory Description: Remote Impaired and Episodic Impaired Diagnostics Vital Signs (24Hr): Vital Signs - 24 hr 07/29/21 18:00 07/30/21 06:00 Temperature 98.3 F 97.9 F Pulse Rate 103 H 106 H Respiratory Rate 18 18 Blood Pressure 96/68 99/62 Pulse Oximetry 97 98 Oxygen Delivery Method Room Air BMI result Body Mass Index 25.1 Labs Results: 07/25/21 09:29 07/24/21 21:11 Medications Medications Current Medications Acetaminophen (Acetaminophen 325 Mg Tablet) 650 mg PO Q6H PRN PRN Reason: Headache/Pain Mild Scale (1-3) Al Hydroxide/Mg Hydroxide (Magnesium Hydrox/Alum Hydrox 30 Ml Oral.Susp) 30 ml PO Q6H PRN PRN Reason: Heartburn/Nausea Cyanocobalamin (Cyanocobalamin (Vitamin B-12) 100 Mcg Tablet) 100 mcg PO DAILY [facility] Last Admin: 07/30/21 09:17 Dose: 100 mcg Hydroxyzine HCl (Hydroxyzine Hcl 25 Mg Tablet) 25 mg PO Q6H PRN PRN Reason: Anxiety Lorazepam (Lorazepam 1 Mg Tablet) 1 mg PO BEDTIME [facility] Last Admin: 07/29/21 19:58 Dose: 1 mg Magnesium Hydroxide (Milk Of Magnesia 30 Ml Oral.Susp) 30 ml PO DAILY PRN PRN Reason: Constipation Multivitamins/Vitamin C (Multivitamin Tablet) 1 tab PO DAILY [facility] Last Admin: 07/30/21 09:17 Dose: 1 tab Olanzapine (Olanzapine Odt 10 Mg Tab.Rapdis) 10 mg TRANSLINGU BID [facility] Last Admin: 07/30/21 09:17 Dose: 10 mg Olanzapine (Olanzapine 5 Mg Tablet) 5 mg PO Q6H PRN PRN Reason: agitation Trazodone HCl (Trazodone Hcl 50 Mg Tablet) 50 mg PO BEDTIME PRN PRN Reason: Insomnia Last Admin: 07/29/21 21:43 Dose: 50 mg Allergies Allergies Allergy/AdvReac Type Severity Reaction Status Date / Time No Known Allergies Allergy Unverified 11/05/19 18:52 [No Known Allergies*] Assessment & Plan Assessment & Plan (1) Schizoaffective disorder, bipolar type: Status: Acute Code(s): F25.0 - Schizoaffective disorder, bipolar type Plan 31 yo male, hx of schizoaffective disorder. Reports he stopped medications due to side effects and began to have recurrence of symptoms with belief that he was in danger from others following him, auditory perceptual alterations and anxiety. Plan: Continue Olanzapine B12, MVI daily Iron Profile Collateral contacts 07/30 Advised to FU with PCP re possible RAYMOND given his significant snoring and daytime sleepiness, fatigue and isolation. I spent minutes with the patient and/or on the patient floor today, greater than?50% of which was spent counseling/coordinating care. Reason for contiued inpatient stay Substantial Risk for: inability to function and rapid decompensation
[2021-07-30 15:59] VITALS: BP 141/87; PULSE 115
[2021-07-30] MEDS: LORazepam 1 MG TABLET PO (18:51)
[2021-07-30] MEDS: traZODone HCL 50 MG TABLET PO (20:49)
[2021-07-31 06:00] VITALS: BP 97/66; PULSE 109; RESP 18; TEMP 36.9; O2SAT 98
[2021-07-31] MEDS: OLANZapine ODT 10 MG TAB.RAPDIS TRANSLINGU ×2 (08:24→19:02)
[2021-07-31] MEDS: Cyanocobalamin (Vitamin B-12) 100 MCG TABLET PO (08:24)
[2021-07-31] MEDS: Multivitamin TABLET 1 TAB PO (08:24)
[2021-07-31 18:00] VITALS: BP 100/75; PULSE 87
--- NOTE | 2021-07-31 18:10 | P.PNPSI_ITS ---
Subjective Subjective Date of Service: 07/31/21 Reason For Visit: SI, Schizoaffective DO Subjective Notes: Conditional Voluntary Healthcare Proxy: No Guardianship: No Medical Problems Affecting Mental Status: No Interim History: Denies current symptoms Interested in respite. Will allow contact with PACT to discuss his housing situation Denies SI, perceptual alterations Quietly interactive in milieu. Medication Compliance: Yes Side effects from medications: No Attending Groups: No Review of Systems Acute medical concerns: No Medical Review of Systems: unchanged Review of Systems Psychiatric: Reports no additional psychiatric complaints Mental Status Exam Mental Status Exam Patient Appearance: Appropriate Patient Orientation: Person, Place, Time and Situation Level of Consciousness: Alert Patient Behavior: Talkative and Good Eye Contact Mood Description: Calm Affect Description: Constricted Patient Cognition Impaired: No Ability to Follow Directions: Good Speech Pattern: Spontaneous Speech Memory Description: Episodic Impaired Hallucinations: None (denies today) Delusions: Not Present Thought Process: Goal Oriented Thought Content: positive for [place] Oriented Abnormal Motor Activity Signs and Symptoms: Restlessness Judgement: Good Diagnostics Vital Signs (24Hr): Vital Signs - 24 hr 07/31/21 06:00 Temperature 98.4 F Pulse Rate 109 H Respiratory Rate 18 Blood Pressure 97/66 Pulse Oximetry 98 BMI result Body Mass Index 25.1 Labs Results: 07/25/21 09:29 07/24/21 21:11 Medications Medications Current Medications Acetaminophen (Acetaminophen 325 Mg Tablet) 650 mg PO Q6H PRN PRN Reason: Headache/Pain Mild Scale (1-3) Al Hydroxide/Mg Hydroxide (Magnesium Hydrox/Alum Hydrox 30 Ml Oral.Susp) 30 ml PO Q6H PRN PRN Reason: Heartburn/Nausea Cyanocobalamin (Cyanocobalamin (Vitamin B-12) 100 Mcg Tablet) 100 mcg PO DAILY [facility] Last Admin: 07/31/21 08:24 Dose: 100 mcg Hydroxyzine HCl (Hydroxyzine Hcl 25 Mg Tablet) 25 mg PO Q6H PRN PRN Reason: Anxiety Lorazepam (Lorazepam 1 Mg Tablet) 1 mg PO BEDTIME [facility] Last Admin: 07/30/21 18:51 Dose: 1 mg Magnesium Hydroxide (Milk Of Magnesia 30 Ml Oral.Susp) 30 ml PO DAILY PRN PRN Reason: Constipation Multivitamins/Vitamin C (Multivitamin Tablet) 1 tab PO DAILY [facility] Last Admin: 07/31/21 08:24 Dose: 1 tab Olanzapine (Olanzapine Odt 10 Mg Tab.Rapdis) 10 mg TRANSLINGU BID [facility] Last Admin: 07/31/21 08:24 Dose: 10 mg Olanzapine (Olanzapine 5 Mg Tablet) 5 mg PO Q6H PRN PRN Reason: agitation Trazodone HCl (Trazodone Hcl 50 Mg Tablet) 50 mg PO BEDTIME PRN PRN Reason: Insomnia Last Admin: 07/30/21 20:49 Dose: 50 mg Allergies Allergies Allergy/AdvReac Type Severity Reaction Status Date / Time No Known Allergies Allergy Unverified 11/05/19 18:52 [No Known Allergies*] Assessment & Plan Assessment & Plan (1) Schizoaffective disorder, bipolar type: Status: Acute Code(s): F25.0 - Schizoaffective disorder, bipolar type Plan 31 yo male, hx of schizoaffective disorder. Reports he stopped medications due to side effects and began to have recurrence of symptoms with belief that he was in danger from others following him, auditory perceptual alterations and anxiety. Plan: Continue Olanzapine B12, MVI daily Iron Profile Collateral contacts 07/30 Advised to FU with PCP re possible RAYMOND given his significant snoring and daytime sleepiness, fatigue and isolation. 07/31/21 Pt agrees to respite stay and agrees to contact with PACT. Continue current regime I spent minutes with the patient and/or on the patient floor today, greater than?50% of which was spent counseling/coordinating care. Patient educated on: therapeutic strategies Informed Consent: understands and further education needed Reason for contiued inpatient stay Substantial Risk for: rapid decompensation
[2021-07-31] MEDS: LORazepam 1 MG TABLET PO (19:02)
[2021-07-31] MEDS: traZODone HCL 50 MG TABLET PO (20:12)
[2021-08-01 06:42] VITALS: BP 127/68; PULSE 60; RESP 14; TEMP 36.6; O2SAT 96
[2021-08-01] MEDS: Cyanocobalamin (Vitamin B-12) 100 MCG TABLET PO (07:59)
[2021-08-01] MEDS: Multivitamin TABLET 1 TAB PO (07:59)
[2021-08-01] MEDS: OLANZapine ODT 10 MG TAB.RAPDIS TRANSLINGU ×2 (07:59→20:09)
--- NOTE | 2021-08-01 16:02 | P.PNPSI_ITS ---
Subjective Subjective Date of Service: 08/01/21 Reason For Visit: SI, Schizoaffective DO Subjective Notes: Conditional Voluntary Healthcare Proxy: No Guardianship: No Medical Problems Affecting Mental Status: No Interim History: Jhon denies current symptoms. He is preparing for discharge on 08/02. Reviewed his questions regarding discharge, medications, transportation. Medication Compliance: Yes Side effects from medications: No Attending Groups: Intermittent Review of Systems Acute medical concerns: No Medical Review of Systems: unchanged Review of Systems Psychiatric: Reports no additional psychiatric complaints Mental Status Exam Mental Status Exam Patient Appearance: Appropriate Patient Orientation: Person, Place, Time and Situation Level of Consciousness: Alert Patient Behavior: Talkative and Good Eye Contact Mood Description: Calm Affect Description: Constricted Patient Cognition Impaired: No Ability to Follow Directions: Good Speech Pattern: Spontaneous Speech Memory Description: Episodic Impaired Hallucinations: None (denies today) Delusions: Not Present Thought Process: Goal Oriented Thought Content: positive for Goal Oriented Abnormal Motor Activity Signs and Symptoms: Restlessness Judgement: Good Diagnostics Vital Signs (24Hr): Vital Signs - 24 hr 07/31/21 18:00 08/01/21 06:42 Temperature 97.8 F Pulse Rate 87 60 Respiratory Rate 14 Blood Pressure 100/75 127/68 Pulse Oximetry 96 Oxygen Delivery Method Room Air BMI result Body Mass Index 25.1 Labs Results: 07/25/21 09:29 07/24/21 21:11 Medications Medications Current Medications Acetaminophen (Acetaminophen 325 Mg Tablet) 650 mg PO Q6H PRN PRN Reason: Headache/Pain Mild Scale (1-3) Al Hydroxide/Mg Hydroxide (Magnesium Hydrox/Alum Hydrox 30 Ml Oral.Susp) 30 ml PO Q6H PRN PRN Reason: Heartburn/Nausea Cyanocobalamin (Cyanocobalamin (Vitamin B-12) 100 Mcg Tablet) 100 mcg PO DAILY [facility] Last Admin: 08/01/21 07:59 Dose: 100 mcg Hydroxyzine HCl (Hydroxyzine Hcl 25 Mg Tablet) 25 mg PO Q6H PRN PRN Reason: Anxiety Lorazepam (Lorazepam 1 Mg Tablet) 1 mg PO BEDTIME [facility] Last Admin: 07/31/21 19:02 Dose: 1 mg Magnesium Hydroxide (Milk Of Magnesia 30 Ml Oral.Susp) 30 ml PO DAILY PRN PRN Reason: Constipation Multivitamins/Vitamin C (Multivitamin Tablet) 1 tab PO DAILY [facility] Last Admin: 08/01/21 07:59 Dose: 1 tab Olanzapine (Olanzapine Odt 10 Mg Tab.Rapdis) 10 mg TRANSLINGU BID [facility] Last Admin: 08/01/21 07:59 Dose: 10 mg Olanzapine (Olanzapine 5 Mg Tablet) 5 mg PO Q6H PRN PRN Reason: agitation Trazodone HCl (Trazodone Hcl 50 Mg Tablet) 50 mg PO BEDTIME PRN PRN Reason: Insomnia Last Admin: 07/31/21 20:12 Dose: 50 mg Allergies Allergies Allergy/AdvReac Type Severity Reaction Status Date / Time No Known Allergies Allergy Unverified 11/05/19 18:52 [No Known Allergies*] Assessment & Plan Assessment & Plan (1) Schizoaffective disorder, bipolar type: Status: Acute Code(s): F25.0 - Schizoaffective disorder, bipolar type Plan 31 yo male, hx of schizoaffective disorder. Reports he stopped medications due to side effects and began to have recurrence of symptoms with belief that he was in danger from others following him, auditory perceptual alterations and anxiety. Plan: Continue Olanzapine B12, MVI daily Iron Profile Collateral contacts 07/30 Advised to FU with PCP re possible RAYMOND given his significant snoring and daytime sleepiness, fatigue and isolation. 08/01/21 Discharge 08/02/21. I spent minutes with the patient and/or on the patient floor today, greater than?50% of which was spent counseling/coordinating care. Patient educated on: medication risk/benefits and therapeutic strategies Informed Consent: understands and further education needed Reason for contiued inpatient stay Substantial Risk for: stable for discharge
[2021-08-01 17:00] VITALS: BP 116/70; PULSE 91; TEMP 36.7; O2SAT 99
[2021-08-01] MEDS: OLANZapine 5 MG TABLET PO (19:03)
[2021-08-01] MEDS: hydrOXYzine HCL 25 MG TABLET PO (19:03)
[2021-08-01] MEDS: traZODone HCL 50 MG TABLET PO (20:09)
[2021-08-01] MEDS: LORazepam 1 MG TABLET PO (20:09)
[2021-08-02 06:00] VITALS: BP 117/55; PULSE 88; TEMP 36.6; O2SAT 98
[2021-08-02] MEDS: OLANZapine ODT 10 MG TAB.RAPDIS TRANSLINGU (08:41)
[2021-08-02] MEDS: Cyanocobalamin (Vitamin B-12) 100 MCG TABLET PO (08:41)
[2021-08-02] MEDS: Multivitamin TABLET 1 TAB PO (08:41)
--- NOTE | 2021-08-02 17:30 | PM.PSYDC ---
DS: Providers Provider Date of Service: 08/02/21 Date of admission: 07/26/21 19:13 Date of discharge: 08/02/21 Primary care physician: Fazal Physician Admitting clinician: Chhaya Resendiz Attending physician on admission: Candido Wilkes Attending physician on discharge: Candido Wilkes Discharging clinician: Chhaya Resendiz DS: Diagnosis Discharge Diagnosis (1) Schizoaffective disorder, bipolar type: Status: Acute DS: Medications Discharge Medications Home Medications: Previous Rx's Medication Instructions Recorded cyanocobalamin (vitamin B-12) 100 100 mcg PO DAILY #30 tabs 08/01/21 mcg tablet (Vitamin B-12) multivitamin (Daily-Tiara) 1 tab PO DAILY #30 tabs 08/01/21 olanzapine 10 mg disintegrating 10 mg translingual BID #30 tabs 08/01/21 tablet Mental Status Exam Mental Status Exam Patient Appearance: Appropriate Patient Orientation: Person, Place, Time and Situation Level of Consciousness: Alert Patient Behavior: Talkative and Good Eye Contact Mood Description: Calm Affect Description: Constricted Patient Cognition Impaired: No Ability to Follow Directions: Good Speech Pattern: Spontaneous Speech Memory Description: Episodic Impaired Hallucinations: None (denies today) Delusions: Not Present Thought Process: Goal Oriented Thought Content: positive for Goal Oriented Abnormal Motor Activity Signs and Symptoms: Restlessness Judgement: Good Data Data Completed and Pending Completed studies during hospitalization [Text1]: 07/27/21 07/27/21 07/27/21 08:16 08:16 08:16 Estimat Average Glucose 111 Hemoglobin A1c % 5.5 Magnesium 2.2 Iron TIBC % Saturation Unsat Iron Binding Triglycerides 79 Cholesterol 131 LDL Cholesterol, Calc 74 HDL Cholesterol 42 Vitamin B12 162 L Folate 12.1 TSH 1.23 Free T4 1.04 07/28/21 08:20 Estimat Average Glucose Hemoglobin A1c % Magnesium Iron 66 TIBC 358 % Saturation 18 Unsat Iron Binding 292 Triglycerides Cholesterol LDL Cholesterol, Calc HDL Cholesterol Vitamin B12 Folate TSH Free T4 DS: Summary Hospital Course Hospital Course: Admission to adult psychiatry for exacerbation of symptoms of schizoaffective disorder, bipolar type. Pt reported that the Invega he had been taking had not been helpful. He requested to make a change to Olanzapine, with was titrated to 10 mg bid and tolerated without adverse effects. Jhon stabilized on this dosage and was able to discharge with this new regime. Time spent discussing smoking cessation with patient: 3 to 10 minutes Status at Discharge Functional status at discharge: independent ambulation Overall status at discharge: patient is progressing back to baseline Time Spent with Patient Time attestation: Total time spent providing and/or coordinating discharge services: 30 Time spent: Less than 30 minutes Discharge Plan Discharge Patient Disposition: Xfer Other Discharge Diagnosis: Schizoaffective disorder, bipolar type Referrals: [facility] [Other] - 08/02/21 4:30 pm ([facility] ) Mary Ellen Christian [Other] - 08/04/21 11:00 am (Initial intake at [facility] in [place] for therapist Medication appointment will be scheduled following completion of initial intake. Appointment is in person at office on [address] [facility] [address] Physician,None [Primary Care Provider] - 1 Month (Pt refused to any outside providers scheduled) Discharge Medications: New multivitamin [Daily-Tiara] Tablet 1 tab PO DAILY Qty: 30 0RF cyanocobalamin (vitamin B-12) [Vitamin B-12] 100 mcg Tablet 100 mcg PO DAILY Qty: 30 0RF olanzapine 10 mg Tablet,Disintegrating 10 mg translingual BID Qty: 30 1RF Discontinued amlodipine 5 mg Tablet 5 mg PO DAILY Qty: 30 0RF Protocol: Hold for SBP< HOLD for SBP < : 90 diphenhydramine HCl 50 mg capsule 50 mg PO BEDTIME Qty: 30 0RF Invega Sustenna 234 mg/1.5 mL Syringe 234 mg IM Q30D Qty: 1.5 0RF olanzapine 20 mg tablet 20 mg PO BEDTIME Qty: 30 0RF Discharge Orders: Discharge Order (Routine); Ordered 08/01/21 Ordered By: Chhaya Resendiz Activity on Discharge: As tolerated Stand Alone Forms: Patient Portal Discharge page, Community Support Care Plan Goals: Stabilization of mood and thought process Health Concerns: Schizoaffective Disorder, bipolar type Plan of Treatment: Attend follow up appointments Take medications as directed Crisis Team if needed [phone] Call/Return as needed Assessment: non-psychotic, non suicidal Discharge Date/Time: 08/02/21 13:05
== END 2021-08-02 13:05 | disposition other institution (70) | DRG 750 ==
LOC: HO.ED 07-26 18:57 → HO.PM5 07-26 19:20
PROVIDERS: Nurse Practitioner Family; Physician Assistant; Admitting Provider Registered Nurse; Emergency Provider Internal Medicine; Visit Provider Clinical Nurse Specialist Psychiatric/Mental Health, Adult
DX: F25.0 Schizoaffective disorder, bipolar type (principal); R45.851 Suicidal ideations; F17.210 Nicotine dependence, cigarettes, uncomplicated; Z71.6 Tobacco abuse counseling; Z20.822 Contact with and (suspected) exposure to COVID-19; Z79.899 Other long term (current) drug therapy
CPT/HCPCS: 36415; 80048; 80061; 80307; 82077; 82607; 82746; 83036; 83540; 83735; 84439; 84443; 85025; 87635; 99285

== ENCOUNTER 2021-12-19 23:40 | Inpatient (IN) | payer OTHER, SELFPAY ==
[2021-12-19 23:50] VITALS: BP 120/84; PULSE 65; RESP 16; TEMP 36.2; O2SAT 99
--- NOTE | 2021-12-20 02:04 | PC.ADMIT ---
Addendum entered by Jessica Krishnamurthy RN 12/20/21 03:29: PT A+O x3, COVID negative, refusing flu vaccine and states he, 'feels safe on unit.' Original Note: PT is a 31 year old homeless,Syriac male admitted on CV from [facility] for hopelessness and SI with a plan to OD on medications. PT has had several prior admissions to this unit. PT has a diagnose of schizoaffective d/o bipolar type, admitted for SI with plan to OD on medications, disorganized thinking, paranoia, delusions, and insomnia. PT VSS, and PT currently denies SI/HI, AV/AH and depression. PT rates anxiety a 4/10. PT denies pain at this time. PTs mother, Marielos, reported that the one year anniversary of PT losing contact with his children may be contributing to PT having worsening psychotic symptoms in recent weeks. PT wanting to go to bed upon arrival to unit, refusing most of admission process. Nurse to nurse done, admission orders obtained, and treatment plan completed. PT resting in room on 15 minute safety checks.
[2021-12-20 09:48] VITALS: BP 112/62; PULSE 61; RESP 16; TEMP 36.3; O2SAT 96
--- NOTE | 2021-12-20 09:50 | PC.NURSE ---
Pt reports smoking sometimes , does not answer any further questions. Pt declines NRT at this time.
--- NOTE | 2021-12-20 11:19 | HO.PSYADMNOT ---
HPI Date of Service: 12/20/21 Chief Complaint: Schizoaffective disorder Sources of Information: patient interviewed, chart reviewed and crisis/core team assessment reviewed HPI Subjective Notes: Lemos Warning and Conditional Voluntary Healthcare Proxy: No Guardianship: No Narrative: 31 yo male, hx of schizoaffective disorder presents with SI with plan to overdose, hearing voices, increase in paranoia and fear. Pt reports he is homeless. Hx of medicine refusal and non compliance. Pt acknowledges not taking medicine as he felt they were not needed. Crisis reports he told family he felt there was a chip inside of his body. Mother reports this is the one year anniversary of pt losing contact with his children. 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 Trauma History: Affirms without specifics Not seeing the children Diagnostics Vital Signs (24Hr): Vital Signs - 24 hr 12/19/21 23:50 12/20/21 09:48 Temperature 97.2 F 97.4 F Pulse Rate 65 61 Respiratory Rate 16 16 Blood Pressure 120/84 112/62 Pulse Oximetry 99 96 Oxygen Delivery Method Room Air Room Air Meds/Allergies Meds Home Medications Medication Instructions Recorded Confirmed Type ferrous sulfate 325 mg (65 mg 1 tab PO DAILY 12/20/21 12/20/21 History iron) tablet,delayed release hydroxyzine pamoate 50 mg capsule 1 cap PO BID PRN anxiety 12/20/21 12/20/21 History ibuprofen 400 mg tablet 400 mg PO Q8H PRN pain 12/20/21 12/20/21 History lorazepam 1 mg tablet 1 mg PO TID PRN Anxiety 12/20/21 12/20/21 History melatonin 3 mg tablet 9 mg PO BEDTIME PRN insomnia 12/20/21 12/20/21 History olanzapine 10 mg tablet 1 tab PO BID 12/20/21 12/20/21 History trazodone 50 mg tablet 1 tab PO BEDTIME PRN insomnia 12/20/21 12/20/21 History Allergies Allergies Allergy/AdvReac Type Severity Reaction Status Date / Time No Known Allergies Allergy Unverified 11/05/19 18:52 [No Known Allergies*] Mental Status Exam Mental Status Exam Patient Appearance: Fatigued and Appropriate Patient Orientation: Person, Place and Situation Level of Consciousness: Alert Patient Behavior: Guarded, Talkative and Suspicious Mood Description: Withdrawn Affect Description: Withdrawn Patient Cognition Impaired: No Ability to Follow Directions: Good Speech Pattern: Spontaneous Speech Memory Description: Episodic Impaired Hallucinations: None (denies) Delusions: Paranoid Ideation and Present Perceptual Disturbances: Derealization Thought Process: Distracted Thought Content: positive for [place], positive for Circumstantial, positive for Preoccupation, positive for Suicidal Ideation (denies) and positive for Homicidal Ideation (denies) Depressive Symptoms: Difficulty Sleeping and Changes in Appetite Abnormal Motor Activity Signs and Symptoms: Restlessness Judgement: Fair Assessment & Plan Assessment & Plan (1) Schizoaffective disorder, bipolar type: Status: Acute Code(s): F25.0 - Schizoaffective disorder, bipolar type Plan 31 yo male, history of schizoaffective disorder, reporting SI and symptoms of psychosis. Pt is off medications and this approximately the one year anniversary of pt not being able to see his three children. Plan: Zydis 10 mg bid Patient educated on: medication risk/benefits and therapeutic strategies Informed Consent: further education needed Reason for continued inpatient stay Substantial Risk for: rapid decompensation
--- NOTE | 2021-12-20 15:35 | P.CONHOSP_ITS ---
History of Present Illness Data of Consult Service Date: 12/20/21 Requesting physician: Chhaya Resendiz Primary Care Provider: None Physician HPI Reason for consult: medical H&P 31 year old male with history of schizoaffective disorder, 3-4 cigarette per day smoker, chronic normocytic anemia on ferrous sulfate, and vitamin b12 deficiency admitted to psychiatry with consult placed for medical H&P. Pt denies etoh or illicit drug use. He does not provide much history. Labs do show a chronic normocytic anemia with normal iron levels. Vitamin B12 level low at 162. A1c normal. TSH and cholestol levels normal. Hematology adn chemistry studies otherwise unremarkable. Pt has no medical complaints at this time. Review of Systems Review of Systems: General: No fevers, malaise, unintentional weight loss HEENT: No blurred vision, diplopia. No sore throat, nasal congestion, rhinorrhea, sinus pain, ear pain Cardiovascular: No chest pain, palpitations, or leg edema Respiratory: No shortness of breath, wheezing, cough GI: No abdominal pain, nausea, vomiting, diarrhea, constipation, melena, hematochezia : No dysuria, hematuria, increased urinary frequency, decreased urinary output MSK: No myalgia, back pain Neuro: No headaches, weakness, paresthesias Skin: No rashes or lesions PMFSH Medical History Depression MDD (major depressive disorder), recurrent episode Schizoaffective disorder, bipolar type Family History (Updated 12/20/21 @ 15:43 by JENNIFER Peterson) Mother No significant family history Father No significant family history Social History Household Members: None Housing: Homeless Do you presently have visiting nurse or other home services: No Unable to assess alcohol history related to: Unknown Patient Tobacco Use Status: Tobacco use Unknown Tobacco use type: Cigarette Cigarette Packs Per Day: 1 Cigarettes Per Day: 20.0 Years Smoked: 16 years e-Cigarette/Vaping Use: Currently Using Patient Interested in Nicotine Replacement: No Patient Given Instructions on How to Stop Smoking: No Second Hand Smoke Exposure: Yes Use of substances other than those prescribed or required for medical reasons: Yes Substance Use Type: Crack/Cocaine Last Used Substance: Unknown Currently Displaying Signs/Symptoms of Drug Intoxication Withdrawal: No Have you been hit, kicked, punched, or otherwise hurt by someone within the past year? If so, by whom?: No Do you feel safe in your current relationship?: No Current Relationship Is there a partner from a previous relationship who is making you feel unsafe now?: No Are you made to feel afraid or neglected: No Spiritual Healthcare Practices: unknown Rastafari Healthcare Practices: unknown Cultural Healthcare Practices: unknown Advance Directives: No Advance Directives Information Provided: No (declined) Do you have thoughts of harming others: None Do you have a plan to hurt others: No Plan Recently lost weight without trying: Unsure How much weight loss: Unsure Eating poorly because of decreased appetite: No Nutrition screen score: 4 Nutrition Risks: No Nutritional Risk Poor oral hygiene: No service: No Sexual orientation: Straight/Heterosexual Meds Allergies Allergy/AdvReac Type Severity Reaction Status Date / Time No Known Allergies Allergy Unverified 11/05/19 18:52 [No Known Allergies*] Active Medications: Current Medications Acetaminophen (Acetaminophen 325 Mg Tablet) 650 mg PO Q6H PRN PRN Reason: Headache/Pain Mild Scale (1-3) Al Hydroxide/Mg Hydroxide (Magnesium Hydrox/Alum Hydrox 30 Ml Oral.Susp) 30 ml PO Q6H PRN PRN Reason: Heartburn/Nausea Hydroxyzine HCl (Hydroxyzine Hcl 25 Mg Tablet) 25 mg PO Q6H PRN PRN Reason: Anxiety Magnesium Hydroxide (Milk Of Magnesia 30 Ml Oral.Susp) 30 ml PO DAILY PRN PRN Reason: Constipation Olanzapine (Olanzapine 10 Mg Tablet) 10 mg PO BEDTIME [facility]AN[facility] Olanzapine (Olanzapine 5 Mg Tablet) 5 mg PO Q4H PRN PRN Reason: psychotic symptoms Trazodone HCl (Trazodone Hcl 50 Mg Tablet) 50 mg PO BEDTIME PRN PRN Reason: Insomnia Home Medications Medication Instructions Recorded Confirmed Last Taken Type ferrous sulfate 325 mg (65 mg 1 tab PO DAILY 12/20/21 12/20/21 Unknown History iron) tablet,delayed release hydroxyzine pamoate 50 mg capsule 1 cap PO BID PRN anxiety 12/20/21 12/20/21 Unknown History ibuprofen 400 mg tablet 400 mg PO Q8H PRN pain 12/20/21 12/20/21 Unknown History lorazepam 1 mg tablet 1 mg PO TID PRN Anxiety 12/20/21 12/20/21 Unknown History melatonin 3 mg tablet 9 mg PO BEDTIME PRN insomnia 12/20/21 12/20/21 Unknown History olanzapine 10 mg tablet 1 tab PO BID 12/20/21 12/20/21 Unknown History trazodone 50 mg tablet 1 tab PO BEDTIME PRN insomnia 12/20/21 12/20/21 Unknown History Physical Exam Vital Signs and Narrative: Vital Signs: Last Vital Signs Temp 97.4 F 12/20/21 09:48 Pulse 61 12/20/21 09:48 Resp 16 12/20/21 09:48 BP 112/62 12/20/21 09:48 Pulse Ox 96 12/20/21 09:48 O2 Del Method 12/20/21 09:48 Constitutional - Awake and Alert, No apparent distress Eyes - PERRLA Cardiovascular - S1S2, RRR, No edema Respiratory - Normal lung expansion, Normal respiratory effort, No respiratory distress, CTA bilaterally Skin - Warm/Dry Neurological - Alert & oriented x3, Pt not agreeable to participating in cranial nerve exam stating it will make him go blind and walked out Psychological - paranoid Assessment and Plan (1) Schizoaffective disorder, bipolar type: Status: Acute Plan 31 year old male with history of schizoaffective disorder, 3-4 cigarette per day smoker, chronic normocytic anemia on ferrous sulfate, and vitamin b12 deficiency admitted to psychiatry with consult placed for medical H&P. #Schizoaffective disorder -Plan per pscyhiatry -Unable to complete physical exam due to patient paranoia/mood #Chronic normocytic anemia -No evidence of ongoing iron deficiency or bleeding. Continue ferrous sulfate -Renal function normal -Given B12 deficiency and iron supplementation suspect nutritional deficiency -Can consider nutrition consult #Vitamin B12 deficiency -Recommend 1000mcg daily #Leukocytosis -Has been mildly elevated WBC on previous admissions. -he denies any symptoms consistent wtih infection. VSS -Suspect this is a chronic elevation related to tobacco abuse -Can recheck in several days #Tobacco abuse -smokes 3-4 cigarettes daily -declines nrt at this time -Smoking cessation counseling not performed as patient walked out of room. Would recommend cessation counseling. He denies any medical complaints at this time. Reviewed all other labs which are reassuring at this time Thank you for allowing me to participate in this consult. Signing off at this time. Please do not hesitate to call for further questions.
[2021-12-20] MEDS: OLANZapine 5 MG TABLET PO (15:53)
[2021-12-20] MEDS: OLANZapine ODT 10 MG TAB.RAPDIS TRANSLINGU (19:56)
[2021-12-20] MEDS: Nicotine Polacrilex 2 MG GUM BUCCAL (21:20)
[2021-12-20] MEDS: traZODone HCL 50 MG TABLET PO (21:20)
[2021-12-21 06:00] VITALS: RESP 18
--- NOTE | 2021-12-21 07:06 | P.PNPSI_ITS ---
Subjective Subjective Date of Service: 12/21/21 Reason For Visit: Schizoaffective disorder Subjective Notes: Conditional Voluntary Healthcare Proxy: No Guardianship: No Medical Problems Affecting Mental Status: No Interim History: Medication review, discussion of aftercare plans with pt who asks for discharge. Will plan for 12/22/21 when planning is completed. Encouraged compliance with regime and follow up to remain well. Jhon agrees but reports he has several responsibilities and there is not always time to do things on a schedule. He expresses gratitude for work with team at [facility]. Medication Compliance: Yes Side effects from medications: No Attending Groups: No Review of Systems Acute medical concerns: No Medical Review of Systems: unchanged Mental Status Exam Mental Status Exam Patient Appearance: Appropriate Patient Orientation: Person, Place, Time and Situation Level of Consciousness: Alert Patient Behavior: Talkative, Avoidant and Good Eye Contact Mood Description: Appropriate Affect Description: Appropriate Patient Cognition Impaired: No Ability to Follow Directions: Good Speech Pattern: Spontaneous Speech Memory Description: Episodic Impaired Hallucinations: None (denies) Delusions: Not Present Perceptual Disturbances: Derealization Thought Process: Distracted Thought Content: positive for [place], positive for Circumstantial, positive for Suicidal Ideation (denies) and positive for Homicidal Ideation (denies) Depressive Symptoms: Difficulty Sleeping and Changes in Appetite Abnormal Motor Activity Signs and Symptoms: Restlessness Judgement: Good Diagnostics Vital Signs (24Hr): Vital Signs - 24 hr 12/20/21 09:48 Temperature 97.4 F Pulse Rate 61 Respiratory Rate 16 Blood Pressure 112/62 Pulse Oximetry 96 Oxygen Delivery Method Room Air Labs Results: 12/21/21 08:30 Medications Medications Current Medications Acetaminophen (Acetaminophen 325 Mg Tablet) 650 mg PO Q6H PRN PRN Reason: Headache/Pain Mild Scale (1-3) Al Hydroxide/Mg Hydroxide (Magnesium Hydrox/Alum Hydrox 30 Ml Oral.Susp) 30 ml PO Q6H PRN PRN Reason: Heartburn/Nausea Hydroxyzine HCl (Hydroxyzine Hcl 25 Mg Tablet) 25 mg PO Q6H PRN PRN Reason: Anxiety Magnesium Hydroxide (Milk Of Magnesia 30 Ml Oral.Susp) 30 ml PO DAILY PRN PRN Reason: Constipation Nicotine Polacrilex (Nicotine Polacrilex 2 Mg Gum) 2 mg BUCCAL Q2H PRN PRN Reason: Nicotine Cravings Last Admin: 12/20/21 21:20 Dose: 2 mg Olanzapine (Olanzapine 5 Mg Tablet) 5 mg PO Q4H PRN PRN Reason: psychotic symptoms Last Admin: 12/20/21 15:53 Dose: 5 mg Olanzapine (Olanzapine Odt 10 Mg Tab.Rapdis) 10 mg TRANSLINGU BID SHANEL Last Admin: 12/20/21 19:56 Dose: 10 mg Trazodone HCl (Trazodone Hcl 50 Mg Tablet) 50 mg PO BEDTIME PRN PRN Reason: Insomnia Last Admin: 12/20/21 21:20 Dose: 50 mg Allergies Allergies Allergy/AdvReac Type Severity Reaction Status Date / Time No Known Allergies Allergy Unverified 11/05/19 18:52 [No Known Allergies*] Assessment & Plan Assessment & Plan (1) Schizoaffective disorder, bipolar type: Status: Acute Code(s): F25.0 - Schizoaffective disorder, bipolar type Plan 31 yo male, history of schizoaffective disorder, reporting SI and symptoms of psychosis. Pt is off medications and this approximately the one year anniversary of pt not being able to see his three children. Plan: Zydis 10 mg bid 12/22/21- Continue current regime. Aftercare planning, re-establish medications. I spent minutes with the patient and/or on the patient floor today, greater than?50% of which was spent counseling/coordinating care. Patient educated on: diagnosis, medication risk/benefits and therapeutic strategies Informed Consent: understands and further education needed Reason for contiued inpatient stay Substantial Risk for: rapid decompensation
[2021-12-21] MEDS: OLANZapine ODT 10 MG TAB.RAPDIS TRANSLINGU ×2 (08:30→18:39)
[2021-12-21 09:00] LABS: Alanine Aminotransferase 12 U/L (0-40); Albumin Level 4.8 g/dL (3.5-5.0); Alkaline Phosphatase 78 U/L (39-117); Anion Gap 16 (12-20); Aspartate Amino Transferase 19 U/L (5-37); Blood Urea Nitrogen 14 mg/dL (9-16); Calcium 10.2 mg/dL (8.4-10.2); Carbon Dioxide 30 mmol/L (22-29); Chloride 101 mmol/L (96-108); Cholesterol 118 mg/dL; Estimated Glomerular Filt Rate > 60; Glucose Fasting 93 mg/dL (60-99); HDL Cholesterol 52 mg/dL; LDL Cholesterol Calculated 55 mg/dl; Potassium 4.9 mmol/L (3.3-5.1); Sodium 142 mmol/L (135-145); Total Protein 7.7 g/dL (6.5-8.0); Triglycerides 58 mg/dL
--- NOTE | 2021-12-21 09:59 | PC.NURSE ---
Pt declined to participate in Safety Tool documentation x2.
[2021-12-21] MEDS: Nicotine Polacrilex 2 MG GUM BUCCAL ×3 (14:17→20:10)
[2021-12-21 18:37] VITALS: BP 145/73; PULSE 101
[2021-12-21] MEDS: LORazepam 1 MG TABLET PO ×2 (20:10)
[2021-12-22] MEDS: OLANZapine ODT 10 MG TAB.RAPDIS TRANSLINGU (09:34)
[2021-12-22] MEDS: Nicotine Polacrilex 2 MG GUM BUCCAL (09:59)
--- NOTE | 2021-12-22 17:02 | PM.PSYDC ---
DS: Providers Provider Date of Service: 12/22/21 Date of admission: 12/19/21 23:40 Date of discharge: 12/22/21 Primary care physician: Fazal Physician Admitting clinician: Chhaya Resendiz Attending physician on admission: Candido Wilkes Consults: 12/20/21 10:58 Consult to Hospitalist Routine Consulting Provider: Hospitalist Reason For Exam: Direct admission Attending physician on discharge: Candido Wilkes Discharging clinician: Chhaya Resendiz DS: Diagnosis Discharge Diagnosis (1) Schizoaffective disorder, bipolar type: Status: Acute DS: Medications Discharge Medications Home Medications: Home Medications Medication Instructions Recorded Confirmed hydroxyzine pamoate 50 mg capsule 1 cap PO BID PRN anxiety 12/20/21 12/20/21 ibuprofen 400 mg tablet 400 mg PO Q8H PRN pain 12/20/21 12/20/21 lorazepam 1 mg tablet 1 mg PO TID PRN Anxiety 12/20/21 12/20/21 melatonin 3 mg tablet 9 mg PO BEDTIME PRN insomnia 12/20/21 12/20/21 Previous Rx's Medication Instructions Recorded ferrous sulfate 325 mg (65 mg 1 tab PO DAILY #30 tabs 12/22/21 iron) tablet,delayed release nicotine (polacrilex) 2 mg gum 2 mg buccal Q2H PRN Nicotine 12/22/21 Cravings #60 ea olanzapine 10 mg tablet 1 tab PO BID #60 tabs 12/22/21 trazodone 50 mg tablet 1 tab PO BEDTIME PRN insomnia #30 12/22/21 tabs Mental Status Exam Mental Status Exam Patient Appearance: Appropriate Patient Orientation: Person, Place, Time and Situation Level of Consciousness: Alert Patient Behavior: Talkative, Avoidant and Good Eye Contact Mood Description: Appropriate Affect Description: Appropriate Patient Cognition Impaired: No Ability to Follow Directions: Good Speech Pattern: Spontaneous Speech Memory Description: Episodic Impaired Hallucinations: None (denies) Delusions: Not Present Perceptual Disturbances: Derealization Thought Process: Distracted Thought Content: positive for [place], positive for Circumstantial, positive for Suicidal Ideation (denies) and positive for Homicidal Ideation (denies) Depressive Symptoms: Difficulty Sleeping and Changes in Appetite Abnormal Motor Activity Signs and Symptoms: Restlessness Judgement: Good Data Data Completed and Pending Completed studies during hospitalization [Text1]: 12/21/21 08:30 Sodium 142 Potassium 4.9 D Chloride 101 Carbon Dioxide 30 H Anion Gap 16 BUN 14 D Creatinine 1.13 Estim Creat Clear Calc TNP Estimated GFR > 60 Fasting Glucose 93 Calcium 10.2 D Total Bilirubin 1.0 AST 19 ALT 12 Alkaline Phosphatase 78 Total Protein 7.7 Albumin 4.8 Triglycerides 58 Cholesterol 118 LDL Cholesterol, Calc 55 HDL Cholesterol 52 D DS: Summary Hospital Course Hospital Course: Admission to adult psychiatry for exacerbation of schizoaffective disorder. Regime of Olanzapine, Trazodone, Atarax, Lorazepam, Melatonin was re-instated, tolerated and was effective. Time spent discussing smoking cessation with patient: 3 to 10 minutes Status at Discharge Functional status at discharge: independent ambulation Overall status at discharge: patient is progressing back to baseline Time Spent with Patient Time attestation: Total time spent providing and/or coordinating discharge services: 35 Time spent: Greater than 30 minutes Discharge Plan Discharge Anticipated Discharge Date/Time: 12/22/21 12:18 Patient Disposition: Xfer Other Discharge Diagnosis: Schizoaffective Disorder, bipolar type Referrals: Intake Appointment ([facility] [Other] - 12/27/21 11:00 am (Appointment is IN-PERSON on Saturday, December 27 at 11am. 12/27/21) [facility] [Other] (Walk in if needed. ) Discharge Medications: New nicotine (polacrilex) 2 mg Gum 2 mg buccal Q2H PRN (Reason: Nicotine Cravings) Qty: 60 0RF Continued hydroxyzine pamoate 50 mg capsule 1 cap PO BID PRN (Reason: anxiety) melatonin 3 mg Tablet 9 mg PO BEDTIME PRN (Reason: insomnia) ibuprofen 400 mg Tablet 400 mg PO Q8H PRN (Reason: pain) lorazepam 1 mg Tablet 1 mg PO TID PRN (Reason: Anxiety) trazodone 50 mg tablet 1 tab PO BEDTIME PRN (Reason: insomnia) Qty: 30 0RF olanzapine 10 mg tablet 1 tab PO BID Qty: 60 0RF ferrous sulfate 325 mg (65 mg iron) tablet,delayed release (DR/EC) 1 tab PO DAILY Qty: 30 0RF Discharge Orders: Discharge Order (Routine); Ordered 12/22/21 Ordered By: Chhaya Resendiz Diet: Advance to usual diet Activity on Discharge: As tolerated Stand Alone Forms: Patient Portal Discharge page, Community Support Care Plan Goals: Maintain mood and safe behaviors Take medications as directed Practice coping skills Continue with out patient providers Health Concerns: Mood and behavioral stabilization Plan of Treatment: Follow up with out patient providers Take medications as directed Assessment: non psychotic non manic non suicidal non homicidal Discharge Date/Time: 12/22/21 14:10
== END 2021-12-22 14:10 | disposition other institution (70) | DRG 750 ==
PROVIDERS: Psychiatry & Neurology Psychiatry; Admitting Provider Psychiatry & Neurology Psychiatry; Visit Provider Clinical Nurse Specialist Psychiatric/Mental Health, Adult
DX: F25.0 Schizoaffective disorder, bipolar type (principal); R45.851 Suicidal ideations; Z59.02 Unsheltered homelessness; D72.829 Elevated white blood cell count, unspecified; D64.9 Anemia, unspecified; E53.8 Deficiency of other specified B group vitamins; F17.210 Nicotine dependence, cigarettes, uncomplicated; Z71.6 Tobacco abuse counseling; Z79.899 Other long term (current) drug therapy
CPT/HCPCS: 36415; 80053; 80061; 90792

== ENCOUNTER 2022-01-03 01:45 | Emergency (ER) | payer MEDICAID, SELFPAY ==
[2022-01-03 01:54] VITALS: RESP 20; BMI 25.1
--- NOTE | 2022-01-03 02:15 | ED.PSYCH ---
HPI - Psych General Chief Complaint: Psychiatric Symptoms Stated Complaint: cant sleep, possible hallucinations Time Seen by Provider: 01/03/22 02:10 Source: patient and family Mode of arrival: ambulatory Limitations: no limitations History of Present Illness HPI Narrative: Patient comes to the emergency room accompanied by his mother. The mother states that the patient has history of paranoia, schizophrenia, has not been sleeping lately, was recently discharged from a hospital for mental health. Mom reports that the patient has been having visual and auditory hallucinations. Patient states that the patient has been pacing around the house, states that the patient had earlier today a butter knife in his pocket. Patient seems a bit disorganized but is alert and oriented x4, denies suicidal or homicidal ideation, denies visual or auditory hallucinations. Patient states that he did not have a butter knife in his pants, patient states he had a clam shucking machine tender and his pants. Patient states that he would never hurt himself or hurt others. Patient does not want to be seen and is adamant about refusing care at this time. Patient states that he would like to be discharged home and have no further care. Patient told his mother that if she wants him to have care, she will have to go to court to force him to come to the emergency room for treatment, until then, he refuses all care. Related Data Home Medications Medication Instructions Recorded Confirmed hydroxyzine pamoate 50 mg capsule 1 cap PO BID PRN anxiety 12/20/21 12/20/21 ibuprofen 400 mg tablet 400 mg PO Q8H PRN pain 12/20/21 12/20/21 lorazepam 1 mg tablet 1 mg PO TID PRN Anxiety 12/20/21 12/20/21 melatonin 3 mg tablet 9 mg PO BEDTIME PRN insomnia 12/20/21 12/20/21 Previous Rx's Medication Instructions Recorded ferrous sulfate 325 mg (65 mg 1 tab PO DAILY #30 tabs 12/22/21 iron) tablet,delayed release nicotine (polacrilex) 2 mg gum 2 mg buccal Q2H PRN Nicotine 12/22/21 Cravings #60 ea olanzapine 10 mg tablet 1 tab PO BID #60 tabs 12/22/21 trazodone 50 mg tablet 1 tab PO BEDTIME PRN insomnia #30 12/22/21 tabs Allergies Allergy/AdvReac Type Severity Reaction Status Date / Time No Known Allergies Allergy Unverified 11/05/19 18:52 [No Known Allergies*] Review of Systems Review of Systems: Constitutional : No Weight loss, No Fever, No Chills, No Night Sweats, No Fatigue, No Malaise ENT/Mouth : No Hearing loss, No Ear Pain, No Nasal Congestion, No Sinus Pain, No Hoarseness, No sore throat, No Rhinorrhea, No Swallowing Difficulty Eyes: No Eye Pain, No Swelling, No Redness, No Foreign Body, No Discharge, No Vision Changes Cardiovascular : No Chest Pain, No SOB, No Dyspnea on Exertion, No Orthopnea, No Edema, No Palpitations Respiratory : No Cough, No Sputum, No Wheezing, No Smoke Exposure, No Dyspnea Gastrointestinal : No Nausea, No Vomiting, No Diarrhea, No Constipation, No abdominal Pain, No Hematochezia, No Melena Genitourinary : no irregular bleeding, No Dysuria, No Urinary Frequency, No Hematuria, No Urinary Incontinence, No Urgency, No Flank Pain, No Urinary Flow Changes, No Hesitancy Musculoskeletal : No joint pain, No Myalgias, No Joint Swelling Skin : No Skin Lesions, No rash Neuro : No Weakness, No Numbness, No Paresthesias, No Loss of Consciousness, No Dizziness, No Headache Psych : Patient denies suicidal or homicidal ideation. Patient's mother concerned that patient has had auditory and visual hallucinations and paranoia Heme/Lymph: No Bruising, No Bleeding,No Lymphadenopathy Endocrine : No Polyuria, No Polydipsia, No Temperature Intolerance PMFSH Past Medical History Medical History Depression MDD (major depressive disorder), recurrent episode Schizoaffective disorder, bipolar type Family History Family History (Updated 12/20/21 @ 15:43 by JENNIFER Peterson) Mother No significant family history Father No significant family history Social History Social History Household Members: None Housing: Homeless Do you presently have visiting nurse or other home services: No Unable to assess alcohol history related to: Unknown Patient Tobacco Use Status: Tobacco use Unknown Tobacco use type: Cigarette Cigarette Packs Per Day: 1 Cigarettes Per Day: 20.0 Years Smoked: 16 years e-Cigarette/Vaping Use: Currently Using Second Hand Smoke Exposure: Yes Substance Use Type: Crack/Cocaine service: No Sexual orientation: Straight/Heterosexual Physical Exam Vital Signs: Vital Signs: Last Vital Signs Resp 20 01/03/22 01:54 BMI result Body Mass Index 25.1 Const: Other: Appearance: Alert. Oriented X3. No acute distress. Appropriate, calm, cooperative Eyes: Pupils equal, round and reactive to light. ENT: Pharynx normal. Neck: Normal inspection. Neck supple. No lymph nodes noted. No crepitus CVS: Normal heart rate and rhythm. Pulses normal. Normal S1 and S2 Respiratory: No respiratory distress. Breath sounds normal. No Wheezing. No rales Abdomen: Soft and nontender. No rigidity. No distention. Skin: Skin warm and dry. Normal skin color. Normal skin turgor. Extremities: No lower extremity edema. No Lacerations. No Rash Neuro: Oriented X 3. No motor deficit. No sensory deficit. Moving all extremities. No slurred speech. CN 2 through 12 grossly intact Psych: calm, cooperative, denies suicidal or homicidal ideation, angry that his mother is forcing him to stay in the hospital Course Course Course Narrative: Patient is an adult, is not suicidal, not homicidal, alert and oriented x4. Patient is refusing all care. Patient told his mother that if she was to force him to get treatment or be admitted to the hospital, she will have to go to court for that. At this time, there is no reason to Section 12 the patient. Patient's mother was encouraged to go to court tomorrow and get a Section 35 if needed. Patient aware that he will be leaving against medical advise. Patient did not want to wait for paperwork and left Discharge Plan Discharge Clinical Impression: Schizoaffective disorder, bipolar type Patient Disposition: Left Against Medical Advice Instructions: Schizophrenia (ED) Additional Instructions: Please follow-up with your primary care physician tomorrow. If you have any worsening or new symptoms, please return to the emergency room or call 911 Prescriptions: No Action hydroxyzine pamoate 50 mg capsule 1 cap PO BID PRN (Reason: anxiety) melatonin 3 mg Tablet 9 mg PO BEDTIME PRN (Reason: insomnia) ibuprofen 400 mg Tablet 400 mg PO Q8H PRN (Reason: pain) lorazepam 1 mg Tablet 1 mg PO TID PRN (Reason: Anxiety) nicotine (polacrilex) 2 mg Gum 2 mg buccal Q2H PRN (Reason: Nicotine Cravings) Qty: 60 0RF trazodone 50 mg tablet 1 tab PO BEDTIME PRN (Reason: insomnia) Qty: 30 0RF olanzapine 10 mg tablet 1 tab PO BID Qty: 60 0RF ferrous sulfate 325 mg (65 mg iron) tablet,delayed release (DR/EC) 1 tab PO DAILY Qty: 30 0RF
--- NOTE | 2022-01-03 02:38 | PC.NURSE ---
MD Johnson called out to triage to assess patient. Patient made multiple attempts to exit the waiting room and not be seen by provider but patients mother insisted he stay. Patient does not want help or medical attention. MD Johnson in triage to assess patient and stated legally that we cannot keep him here or force him to stay since patient is not on a section 12. Patient denying SI/HI therefore legally we cannot force him to stay. explained this to patient mother.
== END 2022-01-03 02:42 | disposition left against medical advice (07) ==
PROVIDERS: Emergency Provider Emergency Medicine
DX: F25.0 Schizoaffective disorder, bipolar type (principal); F17.210 Nicotine dependence, cigarettes, uncomplicated; Z79.899 Other long term (current) drug therapy
CPT/HCPCS: 99282

== ENCOUNTER 2022-02-19 14:47 | Inpatient (IN) | payer OTHER, MEDICAID, SELFPAY ==
[2022-02-19 16:52] VITALS: BP 114/83; PULSE 82; RESP 16; TEMP 36.6; O2SAT 100; BMI 25.8
--- NOTE | 2022-02-19 16:52 | ED.PSYCH ---
HPI - Psych General Chief Complaint: Psychiatric Symptoms <JENNIFER Hernández - Last Filed: 02/19/22 16:58> Stated Complaint: crisis not sleeping <JENNIFER Hernández Last Filed: 02/19/22 16:58> Time Seen by Provider: 02/19/22 17:25 <JENNIFER Hernández Last Filed: 02/19/22 16:58> Source: patient <JENNIFER Garcia Last Filed: 02/19/22 20:15> Mode of arrival: ambulatory <JENNIFER Garcia Last Filed: 02/19/22 20:15> Limitations: no limitations <JENNIFER Garcia Last Filed: 02/19/22 20:15> History of Present Illness HPI Narrative: This is a 32-year-old male history of schizoaffective disorder, bipolar type presenting to the emergency department with bizarre behavior for few weeks. Patient was brought in by his mother was concerned that he has not been sleeping and has been acting strange for the past few weeks she also reports that he has not been taking his medications as prescribed. Patient tells me that he thinks he is here because he has been walking around the house with a suitcase which has been making his mom upset he tells me he wants to leave however does not want to go to the snf. Patient tells me he is fine and does not understand why he is here. Denies drugs, alcohol and tobacco. Denies visual, auditory and tactile hallucinations. Denies any medical complaints. Denies suicidal and homicidal ideation. <JENNIFER Garcia Last Filed: 02/19/22 20:15> Related Data Home Medications: Home Medications Medication Instructions Recorded Confirmed hydroxyzine pamoate 50 mg capsule 1 cap PO BID PRN anxiety 12/20/21 02/19/22 ibuprofen 400 mg tablet 400 mg PO Q8H PRN pain 12/20/21 02/19/22 melatonin 3 mg tablet 9 mg PO BEDTIME PRN insomnia 12/20/21 02/19/22 Previous Rx's Medication Instructions Recorded ferrous sulfate 325 mg (65 mg 1 tab PO DAILY #30 tabs 12/22/21 iron) tablet,delayed release nicotine (polacrilex) 2 mg gum 2 mg buccal Q2H PRN Nicotine 12/22/21 Cravings #60 ea olanzapine 10 mg tablet 1 tab PO BID #60 tabs 12/22/21 trazodone 50 mg tablet 1 tab PO BEDTIME PRN insomnia #30 12/22/21 tabs <JENNIFER Hernández - Last Filed: 02/19/22 16:58> Allergies/Adverse Reactions: Allergies Allergy/AdvReac Type Severity Reaction Status Date / Time No Known Allergies Allergy Unverified 11/05/19 18:52 [No Known Allergies*] <JENNIFER Hernández - Last Filed: 02/19/22 16:58> Review of Systems Review of Systems: Constitutional : No Weight loss, No Fever, No Chills, No Fatigue, No Malaise ENT/Mouth : No sore throat, No Rhinorrhea Eyes: No Eye Pain, No Swelling, No Redness Cardiovascular : No Chest Pain, No SOB, No Dyspnea on Exertion, No Orthopnea, No Edema, No Palpitations Respiratory : No Cough, No Sputum, No Wheezing Gastrointestinal : No Nausea, No Vomiting, No Diarrhea, No Constipation, No abdominal Pain, No Hematochezia, No Melena Genitourinary : No Dysuria, No Urinary Frequency, No Hematuria, Musculoskeletal : No joint pain, No Myalgias, No Joint Swelling Skin : No Skin Lesions, No rash Neuro : No Weakness, No Numbness, No Dizziness, No Headache Psych : No Anxiety/Panic, No Depression All other systems reviewed and are negative <JENNIFER Garcia - Last Filed: 02/19/22 20:15> Yes all other systems are reviewed and are negative <JENNIFER Garcia - Last Filed: 02/19/22 20:15> [facility] Past Medical History Attestation statement: The following information was validated with the patient. <JENNIFER Garcia - Last Filed: 02/19/22 20:15> Source: old records reviewed and nursing notes reviewed <JENNIFER Garcia - Last Filed: 02/19/22 20:15> Medical History: Medical History Depression MDD (major depressive disorder), recurrent episode Schizoaffective disorder, bipolar type <JENNIFER Hernández - Last Filed: 02/19/22 16:58> Family History Family History: Family History Mother No significant family history Father No significant family history <JENNIFER Hernández - Last Filed: 02/19/22 16:58> Social History Social History: Social History Household Members: None Housing: Homeless Do you presently have visiting nurse or other home services: No Unable to assess alcohol history related to: Unknown Patient Tobacco Use Status: Tobacco use Unknown Tobacco use type: Cigarette Cigarette Packs Per Day: 1 Cigarettes Per Day: 20.0 Years Smoked: 16 years e-Cigarette/Vaping Use: Currently Using Second Hand Smoke Exposure: Yes Substance Use Type: Crack/Cocaine Advance Directives: No Advance Directives Information Provided: No Healthcare Proxy: No Guardian: No service: No Sexual orientation: Straight/Heterosexual <JENNIFER Hernández - Last Filed: 02/19/22 16:58> Physical Exam Vital Signs: Vital Signs: Last Vital Signs Temp 98.9 F 02/21/22 05:49 Pulse 67 02/21/22 05:49 Resp 16 02/21/22 05:49 BP 112/63 02/21/22 05:49 Pulse Ox 98 02/21/22 05:49 O2 Del Method 02/21/22 05:49 BMI result Body Mass Index 25.8 <JENNIFER Hernández - Last Filed: 02/19/22 16:58> Vital Signs: Last Vital Signs Temp 98.9 F 02/21/22 05:49 Pulse 67 02/21/22 05:49 Resp 16 02/21/22 05:49 BP 112/63 02/21/22 05:49 Pulse Ox 98 02/21/22 05:49 O2 Del Method 02/21/22 05:49 BMI result Body Mass Index 25.8 VSS <JENNIFER Garcia - Last Filed: 02/19/22 20:15> Appearance: Alert.? Oriented X3.? No acute distress.? Head: Normocephalic, atraumatic, no step-offs or deformities Eyes: Pupils equal, round and reactive to light.? ENT: Pharynx normal.? Neck: Normal inspection.? Neck supple.? CVS: Normal heart rate and rhythm.? Pulses normal.? Respiratory: No respiratory distress.? Breath sounds normal.? Abdomen: Soft and nontender.? Skin: Skin warm and dry.? Normal skin color.? Normal skin turgor.? Extremities: No lower extremity edema.? No calf ttp. 5/5 strength to bilateral upper and lower extremities Neuro: Oriented X 3.? No motor deficit.? No sensory deficit. CN 2-12 intact <JENNIFER Garcia - Last Filed: 02/19/22 20:15> Course Course Course Narrative: RME-16:52PM - 32yoM with extensive psych history per mother who is at bedside with Turkmen-speaking she is concerned due to over the past month he has not been taking any of his psych medications he has been having erratic behaviors not sleeping he reports he did drink some nips today because it is his birthday. Denies any other drug usage. He feels like he is completely fine. Mother is concerned. Plan: Labs, EKG, SARS/FLU/RSV, UA, DRUG URINE SCREEN. Patient will be sent to the waiting room to be evaluated in the psychiatric Pod. <JENNIFER Hernández - Last Filed: 02/19/22 16:58> Reevaluation(s) Reevaluation #1: CBC appears to be around patient's baseline. Chemistry with no acute findings requiring intervention. UA clean without infection. Urine toxicology negative. Ethanol negative. COVID negative. At this time patient will be placed into observation to allow more time to be evaluated by the behavioral health team. At time observation was started patient common cooperative no acute distress will continue to monitor <JENNIFER Garcia - Last Filed: 02/19/22 20:15> Time: 19:59 <JENNIFER Garcia - Last Filed: 02/19/22 20:15> Medical Decision Making Medical Decision Making [facility] Narrative: [id number] 32-year-old male presents with erratic behavior per mother. Patient tells me he is fine has no complaints. Per mom non medication compliance PE benign Likley non medcompliance vs acute episode of Bipolar do vs schizoaffective do vs MDD. Plan basic labs, medical clearance. <JENNIFER Garcia - Last Filed: 02/19/22 20:15> Differential Diagnosis Differential Diagnoses: The differential diagnosis associated with the presentation includes <JENNIFER Garcia - Last Filed: 02/19/22 20:15> Bipolar do vs schizoaffective do vs MDD. <JENNIFER Garcia - Last Filed: 02/19/22 20:15> Admission/Observation Consideration of admission/observation: Escalation of care including admission/observation considered <JENNIFER Garcia - Last Filed: 02/19/22 20:15> ? inpatient psych admit <JENNIFER Garcia - Last Filed: 02/19/22 20:15> Consult Healthcare Provider Management of the patient was discussed with: Behavioral Health Provider <JENNIFER Garcia - Last Filed: 02/19/22 20:15> Lab Data MDM Lab Attestation statement: I reviewed the patient's lab results. <JENNIFER Garcia - Last Filed: 02/19/22 20:15> Result Diagrams: : 02/19/22 19:12 02/19/22 19:12 <JENNIFER Hernández - Last Filed: 02/19/22 16:58> Labs: Lab Results 02/19/22 02/19/22 02/19/22 Range/Units 17:37 17:37 17:37 WBC (4.8-10.8) X10*3/uL RBC (4.60-5.80) X10*6/uL Hgb (14.0-18.0) g/dl Hct (42.0-52.0) % MCV (80.0-98.0) fL MCH (27.0-33.0) pg MCHC (31.0-36.0) g/dl RDW (11.0-16.0) % Plt Count (160-400) X10*3/uL MPV (9.4-12.4) fL Immature Gran % (Auto) (0.0-0.4) % Neut % (Auto) (45-73) % Lymph % (Auto) (20-40) % [place] % (Auto) (2-11) % Eos % (Auto) (0-4) % Baso % (Auto) (0-2) % Lymph # (Auto) (1.2-4.9) X10*3/uL [place] # (Auto) (0.1-1.2) X10*3/uL Eos # (Auto) (0.0-0.4) X10*3/uL Baso # (Auto) (0.0-0.2) X10*3/uL Abs Immat Gran (auto) (0.00-0.03) X10*3/uL Absolute Neuts (auto) (2.0-8.3) x10*3/uL Absolute Nucleated RBC (0.0-0.012) X10*3/uL Nucleated RBC % (auto) (0.0-0.2) /100WBC PT (10.0-13.1) SEC INR (0.9-1.1) Sodium (135-145) mmol/L Potassium (3.3-5.1) mmol/L Chloride (96-108) mmol/L Carbon Dioxide (22-29) mmol/L Anion Gap (12-20) BUN (9-16) mg/dL Creatinine (0.5-1.4) mg/dL Estim Creat Clear Calc Estimated GFR Random Glucose (60-115) mg/dL Calcium (8.4-10.2) mg/dL Magnesium (1.6-2.6) mg/dL Total Bilirubin (0.0-1.0) mg/dL AST (5-37) U/L ALT (0-40) U/L Alkaline Phosphatase (39-117) U/L Total Protein (6.5-8.0) g/dL Albumin (3.5-5.0) g/dL Lipase (8-78) U/L Urine Color Dark Yellow Urine Appearance Clear Urine pH 5.5 (5.0-9.0) Ur Specific [place] >= 1.030 H (1.005-1.025) Urine Protein 30 (1+) H (Neg-Trace) mg/dL Urine Glucose (UA) Negative (Negative) mg/dL Urine Ketones 80 (Negative) mg/dL Urine Blood Negative (Negative) Urine Nitrite Negative (Negative) Ur Leukocyte Esterase Negative (Negative) Urine RBC 0-2 (0-2) /HPF Urine WBC 0-5 (0-5) /HPF Ur Squamous Epith Cells 0-2 (0-2) /HPF Urine Bacteria None Seen (None Seen) Hyaline Casts 0-2 (0-2) /LPF Urine Opiates Screen Not Detected (Not Detect) Urine Fentanyl Screen Not Detected (Not Detect) Ur Barbiturates Screen Not Detected (Not Detect) Ur Phencyclidine Scrn Not Detected (Not Detect) Ur Amphetamines Screen Not Detected (Not Detect) U Benzodiazepines Scrn Not Detected (Not Detect) Urine Cocaine Screen Not Detected (Not Detect) U Marijuana (THC) Screen Not Detected (Not Detect) Ethyl Alcohol mg/dL COVID-19 ([facility]) Negative (Negative) COVID-19 Clin Com See Note 02/19/22 02/19/22 02/19/22 Range/Units 19:12 19:12 19:12 WBC 9.6 (4.8-10.8) X10*3/uL RBC 4.03 L (4.60-5.80) X10*6/uL Hgb 12.5 L (14.0-18.0) g/dl Hct 38.2 L (42.0-52.0) % MCV 94.8 (80.0-98.0) fL MCH 31.0 (27.0-33.0) pg MCHC 32.7 (31.0-36.0) g/dl RDW 13.3 (11.0-16.0) % Plt Count 304 (160-400) X10*3/uL MPV 10.4 (9.4-12.4) fL Immature Gran % (Auto) 0.3 (0.0-0.4) % Neut % (Auto) 68.8 (45-73) % Lymph % (Auto) 19.2 L (20-40) % [place] % (Auto) 7.9 (2-11) % Eos % (Auto) 3.4 (0-4) % Baso % (Auto) 0.4 (0-2) % Lymph # (Auto) 1.8 (1.2-4.9) X10*3/uL [place] # (Auto) 0.8 (0.1-1.2) X10*3/uL Eos # (Auto) 0.3 (0.0-0.4) X10*3/uL Baso # (Auto) 0.0 (0.0-0.2) X10*3/uL Abs Immat Gran (auto) 0.03 (0.00-0.03) X10*3/uL Absolute Neuts (auto) 6.6 (2.0-8.3) x10*3/uL Absolute Nucleated RBC 0.000 (0.0-0.012) X10*3/uL Nucleated RBC % (auto) 0.0 (0.0-0.2) /100WBC PT 11.7 (10.0-13.1) SEC INR 1.0 (0.9-1.1) Sodium 140 (135-145) mmol/L Potassium 4.0 (3.3-5.1) mmol/L Chloride 101 (96-108) mmol/L Carbon Dioxide 27 (22-29) mmol/L Anion Gap 16 (12-20) BUN 15 (9-16) mg/dL Creatinine 0.99 (0.5-1.4) mg/dL Estim Creat Clear Calc 110.6 Estimated GFR > 60 Random Glucose 112 (60-115) mg/dL Calcium 9.4 D (8.4-10.2) mg/dL Magnesium 2.0 (1.6-2.6) mg/dL Total Bilirubin 0.9 (0.0-1.0) mg/dL AST 25 (5-37) U/L ALT 13 (0-40) U/L Alkaline Phosphatase 88 (39-117) U/L Total Protein 7.1 (6.5-8.0) g/dL Albumin 4.5 (3.5-5.0) g/dL Lipase 12 (8-78) U/L Urine Color Urine Appearance Urine pH (5.0-9.0) Ur Specific [place] (1.005-1.025) Urine Protein (Neg-Trace) mg/dL Urine Glucose (UA) (Negative) mg/dL Urine Ketones (Negative) mg/dL Urine Blood (Negative) Urine Nitrite (Negative) Ur Leukocyte Esterase (Negative) Urine RBC (0-2) /HPF Urine WBC (0-5) /HPF Ur Squamous Epith Cells (0-2) /HPF Urine Bacteria (None Seen) Hyaline Casts (0-2) /LPF Urine Opiates Screen (Not Detect) Urine Fentanyl Screen (Not Detect) Ur Barbiturates Screen (Not Detect) Ur Phencyclidine Scrn (Not Detect) Ur Amphetamines Screen (Not Detect) U Benzodiazepines Scrn (Not Detect) Urine Cocaine Screen (Not Detect) U Marijuana (THC) Screen (Not Detect) Ethyl Alcohol mg/dL COVID-19 ([facility]) (Negative) COVID-19 Clin Com 02/19/22 Range/Units 19:12 WBC (4.8-10.8) X10*3/uL RBC (4.60-5.80) X10*6/uL Hgb (14.0-18.0) g/dl Hct (42.0-52.0) % MCV (80.0-98.0) fL MCH (27.0-33.0) pg MCHC (31.0-36.0) g/dl RDW (11.0-16.0) % Plt Count (160-400) X10*3/uL MPV (9.4-12.4) fL Immature Gran % (Auto) (0.0-0.4) % Neut % (Auto) (45-73) % Lymph % (Auto) (20-40) % [place] % (Auto) (2-11) % Eos % (Auto) (0-4) % Baso % (Auto) (0-2) % Lymph # (Auto) (1.2-4.9) X10*3/uL [place] # (Auto) (0.1-1.2) X10*3/uL Eos # (Auto) (0.0-0.4) X10*3/uL Baso # (Auto) (0.0-0.2) X10*3/uL Abs Immat Gran (auto) (0.00-0.03) X10*3/uL Absolute Neuts (auto) (2.0-8.3) x10*3/uL Absolute Nucleated RBC (0.0-0.012) X10*3/uL Nucleated RBC % (auto) (0.0-0.2) /100WBC PT (10.0-13.1) SEC INR (0.9-1.1) Sodium (135-145) mmol/L Potassium (3.3-5.1) mmol/L Chloride (96-108) mmol/L Carbon Dioxide (22-29) mmol/L Anion Gap (12-20) BUN (9-16) mg/dL Creatinine (0.5-1.4) mg/dL Estim Creat Clear Calc Estimated GFR Random Glucose (60-115) mg/dL Calcium (8.4-10.2) mg/dL Magnesium (1.6-2.6) mg/dL Total Bilirubin (0.0-1.0) mg/dL AST (5-37) U/L ALT (0-40) U/L Alkaline Phosphatase (39-117) U/L Total Protein (6.5-8.0) g/dL Albumin (3.5-5.0) g/dL Lipase (8-78) U/L Urine Color Urine Appearance Urine pH (5.0-9.0) Ur Specific [place] (1.005-1.025) Urine Protein (Neg-Trace) mg/dL Urine Glucose (UA) (Negative) mg/dL Urine Ketones (Negative) mg/dL Urine Blood (Negative) Urine Nitrite (Negative) Ur Leukocyte Esterase (Negative) Urine RBC (0-2) /HPF Urine WBC (0-5) /HPF Ur Squamous Epith Cells (0-2) /HPF Urine Bacteria (None Seen) Hyaline Casts (0-2) /LPF Urine Opiates Screen (Not Detect) Urine Fentanyl Screen (Not Detect) Ur Barbiturates Screen (Not Detect) Ur Phencyclidine Scrn (Not Detect) Ur Amphetamines Screen (Not Detect) U Benzodiazepines Scrn (Not Detect) Urine Cocaine Screen (Not Detect) U Marijuana (THC) Screen (Not Detect) Ethyl Alcohol < 10 mg/dL COVID-19 ([facility]) (Negative) COVID-19 Clin Com <JENNIFER Hernández - Last Filed: 02/19/22 16:58> Lab Results 02/19/22 02/19/22 02/19/22 Range/Units 17:37 17:37 17:37 WBC (4.8-10.8) X10*3/uL RBC (4.60-5.80) X10*6/uL Hgb (14.0-18.0) g/dl Hct (42.0-52.0) % MCV (80.0-98.0) fL MCH (27.0-33.0) pg MCHC (31.0-36.0) g/dl RDW (11.0-16.0) % Plt Count (160-400) X10*3/uL MPV (9.4-12.4) fL Immature Gran % (Auto) (0.0-0.4) % Neut % (Auto) (45-73) % Lymph % (Auto) (20-40) % [place] % (Auto) (2-11) % Eos % (Auto) (0-4) % Baso % (Auto) (0-2) % Lymph # (Auto) (1.2-4.9) X10*3/uL [place] # (Auto) (0.1-1.2) X10*3/uL Eos # (Auto) (0.0-0.4) X10*3/uL Baso # (Auto) (0.0-0.2) X10*3/uL Abs Immat Gran (auto) (0.00-0.03) X10*3/uL Absolute Neuts (auto) (2.0-8.3) x10*3/uL Absolute Nucleated RBC (0.0-0.012) X10*3/uL Nucleated RBC % (auto) (0.0-0.2) /100WBC PT (10.0-13.1) SEC INR (0.9-1.1) Sodium (135-145) mmol/L Potassium (3.3-5.1) mmol/L Chloride (96-108) mmol/L Carbon Dioxide (22-29) mmol/L Anion Gap (12-20) BUN (9-16) mg/dL Creatinine (0.5-1.4) mg/dL Estim Creat Clear Calc Estimated GFR Random Glucose (60-115) mg/dL Calcium (8.4-10.2) mg/dL Magnesium (1.6-2.6) mg/dL Total Bilirubin (0.0-1.0) mg/dL AST (5-37) U/L ALT (0-40) U/L Alkaline Phosphatase (39-117) U/L Total Protein (6.5-8.0) g/dL Albumin (3.5-5.0) g/dL Lipase (8-78) U/L Urine Color Dark Yellow Urine Appearance Clear Urine pH 5.5 (5.0-9.0) Ur Specific [place] >= 1.030 H (1.005-1.025) Urine Protein 30 (1+) H (Neg-Trace) mg/dL Urine Glucose (UA) Negative (Negative) mg/dL Urine Ketones 80 (Negative) mg/dL Urine Blood Negative (Negative) Urine Nitrite Negative (Negative) Ur Leukocyte Esterase Negative (Negative) Urine RBC 0-2 (0-2) /HPF Urine WBC 0-5 (0-5) /HPF Ur Squamous Epith Cells 0-2 (0-2) /HPF Urine Bacteria None Seen (None Seen) Hyaline Casts 0-2 (0-2) /LPF Urine Opiates Screen Not Detected (Not Detect) Urine Fentanyl Screen Not Detected (Not Detect) Ur Barbiturates Screen Not Detected (Not Detect) Ur Phencyclidine Scrn Not Detected (Not Detect) Ur Amphetamines Screen Not Detected (Not Detect) U Benzodiazepines Scrn Not Detected (Not Detect) Urine Cocaine Screen Not Detected (Not Detect) U Marijuana (THC) Screen Not Detected (Not Detect) Ethyl Alcohol mg/dL COVID-19 ([facility]) Negative (Negative) COVID-19 Clin Com See Note 02/19/22 02/19/22 02/19/22 Range/Units 19:12 19:12 19:12 WBC 9.6 (4.8-10.8) X10*3/uL RBC 4.03 L (4.60-5.80) X10*6/uL Hgb 12.5 L (14.0-18.0) g/dl Hct 38.2 L (42.0-52.0) % MCV 94.8 (80.0-98.0) fL MCH 31.0 (27.0-33.0) pg MCHC 32.7 (31.0-36.0) g/dl RDW 13.3 (11.0-16.0) % Plt Count 304 (160-400) X10*3/uL MPV 10.4 (9.4-12.4) fL Immature Gran % (Auto) 0.3 (0.0-0.4) % Neut % (Auto) 68.8 (45-73) % Lymph % (Auto) 19.2 L (20-40) % [place] % (Auto) 7.9 (2-11) % Eos % (Auto) 3.4 (0-4) % Baso % (Auto) 0.4 (0-2) % Lymph # (Auto) 1.8 (1.2-4.9) X10*3/uL [place] # (Auto) 0.8 (0.1-1.2) X10*3/uL Eos # (Auto) 0.3 (0.0-0.4) X10*3/uL Baso # (Auto) 0.0 (0.0-0.2) X10*3/uL Abs Immat Gran (auto) 0.03 (0.00-0.03) X10*3/uL Absolute Neuts (auto) 6.6 (2.0-8.3) x10*3/uL Absolute Nucleated RBC 0.000 (0.0-0.012) X10*3/uL Nucleated RBC % (auto) 0.0 (0.0-0.2) /100WBC PT 11.7 (10.0-13.1) SEC INR 1.0 (0.9-1.1) Sodium 140 (135-145) mmol/L Potassium 4.0 (3.3-5.1) mmol/L Chloride 101 (96-108) mmol/L Carbon Dioxide 27 (22-29) mmol/L Anion Gap 16 (12-20) BUN 15 (9-16) mg/dL Creatinine 0.99 (0.5-1.4) mg/dL Estim Creat Clear Calc 110.6 Estimated GFR > 60 Random Glucose 112 (60-115) mg/dL Calcium 9.4 D (8.4-10.2) mg/dL Magnesium 2.0 (1.6-2.6) mg/dL Total Bilirubin 0.9 (0.0-1.0) mg/dL AST 25 (5-37) U/L ALT 13 (0-40) U/L Alkaline Phosphatase 88 (39-117) U/L Total Protein 7.1 (6.5-8.0) g/dL Albumin 4.5 (3.5-5.0) g/dL Lipase 12 (8-78) U/L Urine Color Urine Appearance Urine pH (5.0-9.0) Ur Specific [place] (1.005-1.025) Urine Protein (Neg-Trace) mg/dL Urine Glucose (UA) (Negative) mg/dL Urine Ketones (Negative) mg/dL Urine Blood (Negative) Urine Nitrite (Negative) Ur Leukocyte Esterase (Negative) Urine RBC (0-2) /HPF Urine WBC (0-5) /HPF Ur Squamous Epith Cells (0-2) /HPF Urine Bacteria (None Seen) Hyaline Casts (0-2) /LPF Urine Opiates Screen (Not Detect) Urine Fentanyl Screen (Not Detect) Ur Barbiturates Screen (Not Detect) Ur Phencyclidine Scrn (Not Detect) Ur Amphetamines Screen (Not Detect) U Benzodiazepines Scrn (Not Detect) Urine Cocaine Screen (Not Detect) U Marijuana (THC) Screen (Not Detect) Ethyl Alcohol mg/dL COVID-19 ([facility]) (Negative) COVID-19 Clin Com 02/19/22 Range/Units 19:12 WBC (4.8-10.8) X10*3/uL RBC (4.60-5.80) X10*6/uL Hgb (14.0-18.0) g/dl Hct (42.0-52.0) % MCV (80.0-98.0) fL MCH (27.0-33.0) pg MCHC (31.0-36.0) g/dl RDW (11.0-16.0) % Plt Count (160-400) X10*3/uL MPV (9.4-12.4) fL Immature Gran % (Auto) (0.0-0.4) % Neut % (Auto) (45-73) % Lymph % (Auto) (20-40) % [place] % (Auto) (2-11) % Eos % (Auto) (0-4) % Baso % (Auto) (0-2) % Lymph # (Auto) (1.2-4.9) X10*3/uL [place] # (Auto) (0.1-1.2) X10*3/uL Eos # (Auto) (0.0-0.4) X10*3/uL Baso # (Auto) (0.0-0.2) X10*3/uL Abs Immat Gran (auto) (0.00-0.03) X10*3/uL Absolute Neuts (auto) (2.0-8.3) x10*3/uL Absolute Nucleated RBC (0.0-0.012) X10*3/uL Nucleated RBC % (auto) (0.0-0.2) /100WBC PT (10.0-13.1) SEC INR (0.9-1.1) Sodium (135-145) mmol/L Potassium (3.3-5.1) mmol/L Chloride (96-108) mmol/L Carbon Dioxide (22-29) mmol/L Anion Gap (12-20) BUN (9-16) mg/dL Creatinine (0.5-1.4) mg/dL Estim Creat Clear Calc Estimated GFR Random Glucose (60-115) mg/dL Calcium (8.4-10.2) mg/dL Magnesium (1.6-2.6) mg/dL Total Bilirubin (0.0-1.0) mg/dL AST (5-37) U/L ALT (0-40) U/L Alkaline Phosphatase (39-117) U/L Total Protein (6.5-8.0) g/dL Albumin (3.5-5.0) g/dL Lipase (8-78) U/L Urine Color Urine Appearance Urine pH (5.0-9.0) Ur Specific [place] (1.005-1.025) Urine Protein (Neg-Trace) mg/dL Urine Glucose (UA) (Negative) mg/dL Urine Ketones (Negative) mg/dL Urine Blood (Negative) Urine Nitrite (Negative) Ur Leukocyte Esterase (Negative) Urine RBC (0-2) /HPF Urine WBC (0-5) /HPF Ur Squamous Epith Cells (0-2) /HPF Urine Bacteria (None Seen) Hyaline Casts (0-2) /LPF Urine Opiates Screen (Not Detect) Urine Fentanyl Screen (Not Detect) Ur Barbiturates Screen (Not Detect) Ur Phencyclidine Scrn (Not Detect) Ur Amphetamines Screen (Not Detect) U Benzodiazepines Scrn (Not Detect) Urine Cocaine Screen (Not Detect) U Marijuana (THC) Screen (Not Detect) Ethyl Alcohol < 10 mg/dL COVID-19 (SEAN) (Negative) COVID-19 Clin Com <JENNIFER Garcia - Last Filed: 02/19/22 20:15> External Record Review External record reviewed: Inpatient record, Office record, Outpatient record and Prior outpatient labs <JENNIFER Garcia - Last Filed: 02/19/22 20:15> Core Measures AMI core measures followed: Yes <JENNIFER Garcia - Last Filed: 02/19/22 20:15> Measure exclusions: not indicated <JENNIFER Garcia - Last Filed: 02/19/22 20:15> Critical Care Time Critical Care Time Critical Care Time: No <JENNIFER Garcia - Last Filed: 02/19/22 20:15> Discharge Plan Discharge Clinical Impression: Schizoaffective disorder, bipolar type <JENNIFER Hernández - Last Filed: 02/19/22 16:58> Patient Disposition: Still a Patient <JENNIFER Hernández - Last Filed: 02/19/22 16:58> Prescriptions: No Action hydroxyzine pamoate 50 mg capsule 1 cap PO BID PRN (Reason: anxiety) melatonin 3 mg Tablet 9 mg PO BEDTIME PRN (Reason: insomnia) ibuprofen 400 mg Tablet 400 mg PO Q8H PRN (Reason: pain) nicotine (polacrilex) 2 mg Gum 2 mg buccal Q2H PRN (Reason: Nicotine Cravings) Qty: 60 0RF trazodone 50 mg tablet 1 tab PO BEDTIME PRN (Reason: insomnia) Qty: 30 0RF olanzapine 10 mg tablet 1 tab PO BID Qty: 60 0RF ferrous sulfate 325 mg (65 mg iron) tablet,delayed release (DR/EC) 1 tab PO DAILY Qty: 30 0RF <JENNIFER Hernández - Last Filed: 02/19/22 16:58> Interventions: [place]-Suicide Risk Severity Scale Last Done: 02/21/22 05:34 <JENNIFER Hernández - Last Filed: 02/19/22 16:58>
--- NOTE | 2022-02-19 16:53 | ECG_ITS ---
Test Reason : MED CLEARANCE Blood Pressure : / mmHG Vent. Rate : 072 BPM Atrial Rate : 072 BPM P-R Int : 174 ms QRS Dur : 090 ms QT Int : 400 ms P-R-T Axes : 051 071 050 degrees QTc Int : 438 ms Artifact in tracing Normal sinus rhythm Likely Normal ECG When compared with ECG of 12-JUN-2021 13:07, No significant change was found Referred By: Liza Mckenzie Electronically Signed By:GRISELDA MAZARIEGOS
[2022-02-19 17:51] LABS: Appearance Urine Clear; Color Urine Dark Yellow; Glucose Urine UA Negative (Negative); Leukocyte Esterase Urine Negative (Negative); Nitrite Urine Negative (Negative); PH 5.5 (5.0-9.0); Specific Gravity - Urine >= 1.030 (1.005-1.025); UMIC TRIGGER UACC YES; Urine Blood Negative (Negative); Urine Ketones 80 mg/dL (Negative); Urine Protein 30 (1+) mg/dL (Neg-Trace)
[2022-02-19 17:57] LABS: Amphetamine Screen Urine Not Detected (Not Detect); Barbiturates, Urine Not Detected (Not Detect); Benzodiazepines Screen Urine Not Detected (Not Detect); Cannabinoid Screen Urine Not Detected (Not Detect); Cocaine Screen Urine Not Detected (Not Detect); Fentanyl, urine Not Detected (Not Detect); Opiate Screen Urine Not Detected (Not Detect); Phencyclidine Screen Urine Not Detected (Not Detect)
[2022-02-19 18:20] LABS: Bacteria Urine None Seen (None Seen); Hyaline Casts Urine 0-2 /LPF (0-2); RBC Urine 0-2 /HPF (0-2); Squamous Epithelial Cell Urine 0-2 /HPF (0-2); WBC Urine 0-5 /HPF (0-5)
[2022-02-19 18:26] LABS: COVID-19 Test Negative (Negative); IDNOW Serial# BCCEAD1C
[2022-02-19 19:17] LABS: MANUAL DIFF FLAG NO
[2022-02-19 19:18] LABS: Basophils Percent Auto 0.4 % (0-2); Eosinophils Absolute Auto 0.3 X10*3/uL (0.0-0.4); Eosinophils Percent Auto 3.4 % (0-4); Hematocrit 38.2 % (42.0-52.0); Hemoglobin 12.5 g/dl (14.0-18.0); Imm Gran Abs Auto 0.03 X10*3/uL (0.00-0.03); Imm Gran Pct Auto 0.3 % (0.0-0.4); Lymphocytes Absolute Auto 1.8 X10*3/uL (1.2-4.9); Lymphocytes Percent Auto 19.2 % (20-40); Mean Corpuscular HGB Conc 32.7 g/dl (31.0-36.0); Mean Corpuscular Volume 94.8 fL (80.0-98.0); Mean Platelet Volume 10.4 fL (9.4-12.4); Monocytes Absolute Auto 0.8 X10*3/uL (0.1-1.2); Monocytes Percent Auto 7.9 % (2-11); Neutrophils Absolute Auto 6.6 x10*3/uL (2.0-8.3); Neutrophils Percent Auto 68.8 % (45-73); Platelet Count 304 X10*3/uL (160-400); Red Blood Count 4.03 X10*6/uL (4.60-5.80); Red Cell Distribution Width 13.3 % (11.0-16.0); White Blood Count 9.6 X10*3/uL (4.8-10.8)
[2022-02-19 19:32] LABS: Prothrombin Time 11.7 SEC (10.0-13.1)
[2022-02-19 19:36] LABS: Ethanol < 10 mg/dL
[2022-02-19 19:43] LABS: Alanine Aminotransferase 13 U/L (0-40); Albumin Level 4.5 g/dL (3.5-5.0); Alkaline Phosphatase 88 U/L (39-117); Anion Gap 16 (12-20); Aspartate Amino Transferase 25 U/L (5-37); Bilirubin Total 0.9 mg/dL (0.0-1.0); Blood Urea Nitrogen 15 mg/dL (9-16); Calcium 9.4 mg/dL (8.4-10.2); Carbon Dioxide 27 mmol/L (22-29); Chloride 101 mmol/L (96-108); Creatinine Clr Calc Pharmacy 110.6; Estimated Glomerular Filt Rate > 60; Glucose Random 112 mg/dL (60-115); Lipase 12 U/L (8-78); Sodium 140 mmol/L (135-145); Total Protein 7.1 g/dL (6.5-8.0)
--- NOTE | 2022-02-19 20:34 | PHA.MEDREC ---
Pharmacy Consult ? Medication Reconciliation Pharmacy has reviewed the medication reconciliation done by Adriel. Reached out to provider to let them know patient has no PDMP claims for ativan.
--- NOTE | 2022-02-20 02:32 | PC.NURSE ---
Patient currently in bed appears sleeping, no distress observed/reported, behavior non concerning, med rec completed/pending provider's approval, VSS, disposition per care team is section 12 inpatient bed search, will continue to monitor.
[2022-02-20 04:00] VITALS: BP 116/79; PULSE 82; RESP 17; TEMP 36.6; O2SAT 99
--- NOTE | 2022-02-20 13:09 | MHC.CARE ---
[facility] initial boarding form # [id number]
--- NOTE | 2022-02-20 13:10 | MHC.CARE ---
statewide inpatient bedsearch completed, referrals sent to [facility] and [facility] faxed referrals to review for admission
--- NOTE | 2022-02-20 15:37 | PC.NURSE ---
Report from Christen JUAREZ, pt resting quietly at this time, appears to be sleeping. NAD. Cont to be inpatient bedsearch.
--- NOTE | 2022-02-20 21:56 | PM.PSYCN ---
History of Present Illness Date of Service: 02/20/22 Chief Complaint: Schizoaffective disorder, bipolar type Reason for Consult: assess Sources of Information: patient interviewed, chart reviewed and crisis/core team assessment reviewed HPI Narrative: Patient is a 32-year-old male with history of psychosis who presents after family got him to the hospital for bizarre behavior in the face of off medications. Patient lying in bed and minimally engaged with magazine writer. When asked why he came to the hospital he says I do not know. When magazine writer mentioned that family was concerned patient did not know why. He denies SI or HI. He is vague on whether he has auditory hallucinations. He then says I am all Jell-O inside of me is Jell-O. He refuses Zyprexa saying he quit taking it however he does agree to Risperdal. Security Strategist did review risks/side effects of Risperdal and he said it was okay to start this. He says he is not sure if he has any worries. He is sad sometimes but not now. Patient difficult to engage beyond this. 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 Substance History: deferred Trauma History: Affirms without specifics Not seeing the children Diagnostics Vital Signs (24Hr): Vital Signs - 24 hr 02/20/22 04:00 Temperature 97.9 F Pulse Rate 82 Respiratory Rate 17 Blood Pressure 116/79 Pulse Oximetry 99 Oxygen Delivery Method Room Air BMI result Body Mass Index 25.8 Labs 02/19/22 19:12 02/19/22 19:12 Labs: Laboratory Results - last 48 hr 02/19/22 02/19/22 02/19/22 17:37 17:37 17:37 WBC RBC Hgb Hct MCV MCH MCHC RDW Plt Count MPV Immature Gran % (Auto) Neut % (Auto) Lymph % (Auto) Josephine % (Auto) Eos % (Auto) Baso % (Auto) Lymph # (Auto) Josephine # (Auto) Eos # (Auto) Baso # (Auto) Abs Immat Gran (auto) Absolute Neuts (auto) Absolute Nucleated RBC Nucleated RBC % (auto) PT INR Sodium Potassium Chloride Carbon Dioxide Anion Gap BUN Creatinine Estim Creat Clear Calc Estimated GFR Random Glucose Calcium Magnesium Total Bilirubin AST ALT Alkaline Phosphatase Total Protein Albumin Lipase Urine Color Dark Yellow Urine Appearance Clear Urine pH 5.5 Ur Specific [place] >= 1.030 H Urine Protein 30 (1+) H Urine Glucose (UA) Negative Urine Ketones 80 Urine Blood Negative Urine Nitrite Negative Ur Leukocyte Esterase Negative Urine RBC 0-2 Urine WBC 0-5 Ur Squamous Epith Cells 0-2 Urine Bacteria None Seen Hyaline Casts 0-2 Urine Opiates Screen Not Detected Urine Fentanyl Screen Not Detected Ur Barbiturates Screen Not Detected Ur Phencyclidine Scrn Not Detected Ur Amphetamines Screen Not Detected U Benzodiazepines Scrn Not Detected Urine Cocaine Screen Not Detected U Marijuana (THC) Screen Not Detected Ethyl Alcohol COVID-19 (SEAN) Negative COVID-19 Clin Com See Note 02/19/22 02/19/22 02/19/22 19:12 19:12 19:12 WBC 9.6 RBC 4.03 L Hgb 12.5 L Hct 38.2 L MCV 94.8 MCH 31.0 MCHC 32.7 RDW 13.3 Plt Count 304 MPV 10.4 Immature Gran % (Auto) 0.3 Neut % (Auto) 68.8 Lymph % (Auto) 19.2 L Josephine % (Auto) 7.9 Eos % (Auto) 3.4 Baso % (Auto) 0.4 Lymph # (Auto) 1.8 Josephine # (Auto) 0.8 Eos # (Auto) 0.3 Baso # (Auto) 0.0 Abs Immat Gran (auto) 0.03 Absolute Neuts (auto) 6.6 Absolute Nucleated RBC 0.000 Nucleated RBC % (auto) 0.0 PT 11.7 INR 1.0 Sodium 140 Potassium 4.0 Chloride 101 Carbon Dioxide 27 Anion Gap 16 BUN 15 Creatinine 0.99 Estim Creat Clear Calc 110.6 Estimated GFR > 60 Random Glucose 112 Calcium 9.4 D Magnesium 2.0 Total Bilirubin 0.9 AST 25 ALT 13 Alkaline Phosphatase 88 Total Protein 7.1 Albumin 4.5 Lipase 12 Urine Color Urine Appearance Urine pH Ur Specific [place] Urine Protein Urine Glucose (UA) Urine Ketones Urine Blood Urine Nitrite Ur Leukocyte Esterase Urine RBC Urine WBC Ur Squamous Epith Cells Urine Bacteria Hyaline Casts Urine Opiates Screen Urine Fentanyl Screen Ur Barbiturates Screen Ur Phencyclidine Scrn Ur Amphetamines Screen U Benzodiazepines Scrn Urine Cocaine Screen U Marijuana (THC) Screen Ethyl Alcohol COVID-19 (SEAN) COVID-19 Clin Com 02/19/22 19:12 WBC RBC Hgb Hct MCV MCH MCHC RDW Plt Count MPV Immature Gran % (Auto) Neut % (Auto) Lymph % (Auto) Josephine % (Auto) Eos % (Auto) Baso % (Auto) Lymph # (Auto) Josephine # (Auto) Eos # (Auto) Baso # (Auto) Abs Immat Gran (auto) Absolute Neuts (auto) Absolute Nucleated RBC Nucleated RBC % (auto) PT INR Sodium Potassium Chloride Carbon Dioxide Anion Gap BUN Creatinine Estim Creat Clear Calc Estimated GFR Random Glucose Calcium Magnesium Total Bilirubin AST ALT Alkaline Phosphatase Total Protein Albumin Lipase Urine Color Urine Appearance Urine pH Ur Specific [place] Urine Protein Urine Glucose (UA) Urine Ketones Urine Blood Urine Nitrite Ur Leukocyte Esterase Urine RBC Urine WBC Ur Squamous Epith Cells Urine Bacteria Hyaline Casts Urine Opiates Screen Urine Fentanyl Screen Ur Barbiturates Screen Ur Phencyclidine Scrn Ur Amphetamines Screen U Benzodiazepines Scrn Urine Cocaine Screen U Marijuana (THC) Screen Ethyl Alcohol < 10 COVID-19 (SEAN) COVID-19 Clin Com Mental Status Exam Mental Status Exam Narrative: Alert and oriented Appearance: disheveled Behavior: guarded; minimally cooperative Psychomotor: Psychomotor retardation noted Speech: Reticent but when talking, clear, regular rate/rhythm/volume, spontaneous TP: Disorganized TC: Disorganized Mood: Patient does not know Affect: Constricted to flat Si: denies HI: denies AH/VH: denies but appears to be responding to internal stimuli Delusions: paranoia Insight/judgment: Impaired Medications Medications Current Medications Pharmacy Consult (Consult Rx Perform Med Rec) 1 each MISCELLANE ONCE PRN PRN Reason: Consult order Allergies Allergies Allergy/AdvReac Type Severity Reaction Status Date / Time No Known Allergies Allergy Unverified 11/05/19 18:52 [No Known Allergies*] Assessment & Plan Assessment & Plan (1) Schizophrenia: Status: Acute Code(s): F20.9 - Schizophrenia, unspecified Plan Patient is a 32-year-old male with history of psychosis who presents after family got him to the hospital for bizarre behavior in the face of off medications. Patient lying in bed and minimally engaged with magazine writer. When asked why he came to the hospital he says I do not know. When magazine writer mentioned that family was concerned patient did not know why. He denies SI or HI. He is vague on whether he has auditory hallucinations. He then says I am all Jell-O inside of me is Jell-O. He refuses Zyprexa saying he quit taking it however he does agree to Risperdal. Security Strategist did review risks/side effects of Risperdal and he said it was okay to start this. He says he is not sure if he has any worries. He is sad sometimes but not now. Patient difficult to engage beyond this. Impression: Psychotic symptoms due to medication non adherence Patient agrees to restarting Risperdal and will do so at low-dose Inpatient admission for safety and medication management Total time managing care of this patient today ____ minutes. Patient educated on: medication risk/benefits Informed Consent: understands and further education needed
--- NOTE | 2022-02-21 05:34 | PC.NURSE ---
Patient slept though the night, no distress observed/reported, behavior non concerning and pleasant, medication compliant, disposition per care team is section 12 inpatient bed search, per care team patient is pre-accepted to , patient contracted to safety, VSS, will continue to monitor.
[2022-02-21 05:49] VITALS: BP 112/63; PULSE 67; RESP 16; TEMP 37.2; O2SAT 98
[2022-02-21] MEDS: risperiDONE 1 MG TABLET PO ×2 (08:25→21:59)
[2022-02-21 08:33] VITALS: RESP 18
--- NOTE | 2022-02-21 19:39 | PC.ADMIT ---
PT is a 32 year old egyptian/turkmen speaking male that was admitted at 15:47 on a CV basis from the [facility]. PT was brought in to the ED by his mother after exhibiting bizarre behaviors at home and not sleeping for weeks and struggling with increased paranoia that someone is following him. PT has a history of schizoaffective disorder(bipolar type), and has not been med adherent for months according to mother's report. Tox negative for all, COVID neg. PT has a hx of requiring IPLOC on a multitude of occasions. During the admission process patient was observed laughing when asked direct questions such as do you have a psychiatrist? . Unable to complete all of admission questions due to mental status and obtained info from previous admissions. All legals signed. Safety tool and treatment plan completed. PT currently denying any SI/HI and laughs when asking about AH/VH. PT oriented to unit. Nicotine replacement ordered, pt refuses flu vaccine.
[2022-02-22 07:00] VITALS: BMI 23.1
[2022-02-22 08:27] VITALS: BP 119/67; PULSE 102; RESP 18; TEMP 36.4; O2SAT 97
[2022-02-22 09:45] LABS: Cholesterol 94 mg/dL; HDL Cholesterol 40 mg/dL; LDL Cholesterol Calculated 44 mg/dl; Magnesium 1.9 mg/dL (1.6-2.6); Triglycerides 52 mg/dL
[2022-02-22 09:58] LABS: Thyroid Stimulating Hormone 1.19 uIU/mL (0.32-4.0)
--- NOTE | 2022-02-22 10:04 | P.HPPS_ITS ---
HPI Date of Service: 02/22/22 Chief Complaint: Schizoaffective disorder, bipolar type Sources of Information: patient interviewed, chart reviewed and crisis/core team assessment reviewed Additional Sources of Information: Mother- Marielos Hammer [phone] HPI Subjective Notes: Lemos Warning and Conditional Voluntary Narrative: Mr. Gan is a 32 year-old male with hx of schizophrenia who was brought in to [facility] ED due to increase paranoia, not sleeping, talking to himself, bizarre behaviors (unclear what behaviors as not described in crisis report). Pt has not been taking medications and it appears he does not have current psychiatric providers. Utox is negative. Pt is known to this junior underwriter through previous admission with similar presentation. On the unit, pt presented as guarded, denying any psychiatric symptoms. He reports he is not sure why his mother was concerned about him. Pt denies hearing voices but throughout interview with this junior underwriter, pt was laughing inappropriately, and mumbling and talking with someone who was not there as if responding to internal stimuli. Pt denies SI/HI. He does make some reference to thinking someone may be after him but not fully forthcoming with extend of paranoid delusions which has been the case during previous admission. 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 Trauma History: Affirms without specifics Not seeing the children Diagnostics Vital Signs (24Hr): Vital Signs - 24 hr 02/22/22 08:27 Temperature 97.5 F Pulse Rate 102 H Respiratory Rate 18 Blood Pressure 119/67 Pulse Oximetry 97 Oxygen Delivery Method Room Air BMI result Body Mass Index 25.8 Labs 02/19/22 19:12 02/19/22 19:12 Labs: Laboratory Results - last 48 hr 02/22/22 02/22/22 02/22/22 08:20 08:20 08:20 Estimat Average Glucose 108 Hemoglobin A1c % 5.4 Magnesium 1.9 Triglycerides 52 Cholesterol 94 LDL Cholesterol, Calc 44 HDL Cholesterol 40 Vitamin B12 295 Folate 11.9 TSH 1.19 Free T4 1.00 Meds/Allergies Meds Home Medications Medication Instructions Recorded Confirmed Type hydroxyzine pamoate 50 mg capsule 1 cap PO BID PRN anxiety 12/20/21 02/19/22 History ibuprofen 400 mg tablet 400 mg PO Q8H PRN pain 12/20/21 02/19/22 History melatonin 3 mg tablet 9 mg PO BEDTIME PRN insomnia 12/20/21 02/19/22 History Allergies Allergies Allergy/AdvReac Type Severity Reaction Status Date / Time No Known Allergies Allergy Unverified 11/05/19 18:52 [No Known Allergies*] Mental Status Exam Mental Status Exam Narrative: Appearance: casually groomed, fair hygiene, in NAD Behavior: guarded but cooperative Psychomotor: no agitation or retardation noted Speech: clear, regular rate/rhythm/volume, spontaneous TP: linear TC: wanting to go soon, does not think he has any psychiatric condition Mood: good Affect: guarded, at times laughing inappropriately Si: denies HI: denies AH/VH: denies but seen talking to someone who is not there. mumbling during interview, as if responding to internal stimuli. Delusions: paranoia but not overtly forthcoming about it. Insight/judgment: poor x 2. Memory/cog: alert, oriented x 3. poor attention due to psychosis. Assessment & Plan Assessment & Plan (1) Schizophrenia: Status: Acute Code(s): F20.9 - Schizophrenia, unspecified Plan Mr. Gan is a 32 year-old male with hx of schizophrenia. He was brought in by mother due to increase paranoia, poor sleep, talking to himself. He has been inpatient in the past with similar presentation and has not followed through with outpatient psychiatric providers. Utox is negative. We discussed risks, benefits and alternative treatment options. Pt agrees to restart risperidone. PLAN 1. Admit to M5, CV, 15 minutes checks 2. start risperidone 1mg po BID, titrate 3. Aftercare planning 5. Obtain collateral information. Patient educated on: diagnosis and medication risk/benefits Reason for continued inpatient stay Substantial Risk for: inability to function Statement Statement: I have reviewed the history and physical and performed a pertinent examination on my patient. No changes have occurred unless specified. If the History and Physical was not performed prior to admission, the Hospitalist's service will be consulted for completing the admission physical. Time Spent With Patient Time: Total time managing care of this patient today ____ minutes.
[2022-02-22 10:16] LABS: Folate 11.9 ng/mL (> or = 4.0); Vitamin B12 295 pg/mL (200-900)
[2022-02-22 10:27] LABS: Estimated Average Glucose 108 mg/dL; Hemoglobin A1c % 5.4 %
[2022-02-22] MEDS: risperiDONE 2 MG TABLET PO (19:40)
[2022-02-23 06:00] VITALS: BP 126/74; PULSE 86; TEMP 36.2; O2SAT 99
--- NOTE | 2022-02-23 11:43 | HO.PSYCHPN ---
Subjective Subjective Date of Service: 02/23/22 Reason For Visit: Schizoaffective disorder, bipolar type Subjective Notes: Conditional Voluntary Interim History: Pt reports he is doing well. He denies any psychiatric symptoms, states that his mother was worried because he is not working. Pt continues to mumbles while we speak, responding to internal stimuli. He denies SI/HI. He reports he will take only risperidone at night and agrees to increase dose to 3mg po qhs. No behavioral concern, but pt has tendency when paranoid to assault others unexpectedly. Medication Compliance: Yes Side effects from medications: No Review of Systems Review of Systems Constitutional : No Weight loss, No Fever, No Chills, No Fatigue, No Malaise ENT/Mouth : No sore throat, No Rhinorrhea Eyes: No Eye Pain, No Swelling, No Redness Cardiovascular : No Chest Pain, No SOB, No Dyspnea on Exertion, No Orthopnea, No Edema, No Palpitations Respiratory : No Cough, No Sputum, No Wheezing Gastrointestinal : No Nausea, No Vomiting, No Diarrhea, No Constipation, No abdominal Pain, No Hematochezia, No Melena Genitourinary : No Dysuria, No Urinary Frequency, No Hematuria, Musculoskeletal : No joint pain, No Myalgias, No Joint Swelling Skin : No Skin Lesions, No rash Neuro : No Weakness, No Numbness, No Dizziness, No Headache Psych : No Anxiety/Panic, No Depression All other systems reviewed and are negative Yes all other systems are reviewed and are negative Constitutional: Reports no additional constitutional complaints Eyes: Reports no additional eye complaints Cardiovascular: Reports no additional cardiovascular complaints Mental Status Exam Mental Status Exam Narrative: Appearance: casually groomed, fair hygiene, in NAD Behavior: guarded but cooperative Psychomotor: no agitation or retardation noted Speech: clear, regular rate/rhythm/volume, spontaneous TP: linear TC: wanting to go soon, does not think he has any psychiatric condition Mood: good Affect: guarded, at times laughing inappropriately Si: denies HI: denies AH/VH: denies but seen talking to someone who is not there. mumbling during interview, as if responding to internal stimuli. Delusions: paranoia but not overtly forthcoming about it. Insight/judgment: poor x 2. Memory/cog: alert, oriented x 3. poor attention due to psychosis. Diagnostics Vital Signs (24Hr): Vital Signs - 24 hr 02/23/22 06:00 Temperature 97.2 F Pulse Rate 86 Blood Pressure 126/74 Pulse Oximetry 99 Oxygen Delivery Method Room Air BMI result Body Mass Index 23.1 Labs 02/19/22 19:12 02/19/22 19:12 Labs: Laboratory Results - last 48 hr 02/22/22 02/22/22 02/22/22 08:20 08:20 08:20 Estimat Average Glucose 108 Hemoglobin A1c % 5.4 Magnesium 1.9 Triglycerides 52 Cholesterol 94 LDL Cholesterol, Calc 44 HDL Cholesterol 40 Vitamin B12 295 Folate 11.9 TSH 1.19 Free T4 1.00 Medications Medications Current Medications Acetaminophen (Acetaminophen 325 Mg Tablet) 650 mg PO Q6H PRN PRN Reason: Headache/Pain Mild Scale (1-3) Al Hydroxide/Mg Hydroxide (Magnesium Hydrox/Alum Hydrox 30 Ml Oral.Susp) 30 ml PO Q6H PRN PRN Reason: Heartburn/Nausea Ferrous Sulfate (Ferrous Sulfate 324 Mg Tablet.Dr) 324 mg PO DAILY [facility] Last Admin: 02/23/22 09:04 Dose: Not Given Hydroxyzine HCl (Hydroxyzine Hcl 50 Mg Tablet) 50 mg PO BID PRN PRN Reason: anxiety Magnesium Hydroxide (Milk Of Magnesia 30 Ml Oral.Susp) 30 ml PO DAILY PRN PRN Reason: Constipation Melatonin (Melatonin 3 Mg Tablet) 9 mg PO BEDTIME PRN PRN Reason: insomnia Nicotine Polacrilex (Nicotine Polacrilex 2 Mg Gum) 2 mg BUCCAL Q2H PRN PRN Reason: Nicotine Cravings Pharmacy Consult (Consult Rx Perform Med Rec) 1 each MISCELLANE ONCE PRN PRN Reason: Consult order Risperidone (Risperidone 2 Mg Tablet) 2 mg PO BEDTIME [facility] Last Admin: 02/22/22 19:40 Dose: 2 mg Trazodone HCl (Trazodone Hcl 50 Mg Tablet) 50 mg PO BEDTIME PRN PRN Reason: insomnia Allergies Allergies Allergy/AdvReac Type Severity Reaction Status Date / Time No Known Allergies Allergy Unverified 11/05/19 18:52 [No Known Allergies*] Assessment & Plan Assessment & Plan (1) Schizophrenia: Status: Acute Code(s): F20.9 - Schizophrenia, unspecified Plan Mr. Gan is a 32 year-old male with hx of schizophrenia. He was brought in by mother due to increase paranoia, poor sleep, talking to himself. He has been inpatient in the past with similar presentation and has not followed through with outpatient psychiatric providers. Utox is negative. We discussed risks, benefits and alternative treatment options. Pt agrees to restart risperidone. PLAN 1. Admit to M5, CV, 15 minutes checks 2. start risperidone 1mg po BID, titrate 3. Aftercare planning 5. Obtain collateral information. 02/23/22 increase risperidone to 3mg po qhs. Reason for contiued inpatient stay Substantial Risk for: inability to function Time Spent With Patient Time: Total time managing care of this patient today ____ minutes.
[2022-02-23 18:37] VITALS: BP 139/72; PULSE 85; RESP 18; TEMP 36.6; O2SAT 98
[2022-02-23] MEDS: risperiDONE 3 MG TABLET PO (20:09)
[2022-02-24 08:25] VITALS: BP 122/65; PULSE 63; RESP 16; TEMP 36.6; O2SAT 99
--- NOTE | 2022-02-24 10:45 | HO.PSYCHPN ---
Subjective Subjective Date of Service: 02/24/22 Reason For Visit: Schizoaffective disorder, bipolar type Interim History: Patient polite but does not want to engage.? He says that he is ?better than ever? 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 Intermittently dancing in the hallway.? Taking medication Mental Status Exam Mental Status Exam Narrative: Alert and oriented Appearance: Adequately groomed, in hospital gown Behavior: Polite but guarded; minimally cooperative Psychomotor: Some Psychomotor Agitation noted Speech: clear, regular rate/rhythm/volume, spontaneous TP: Goal oriented TC: Undisclosed Mood: Better than ever Affect: Euthymic Si: denies HI: denies AH/VH: denies but appears to be responding to internal stimuli Delusions: Recent paranoia Insight/judgment: Impaired Diagnostics Vital Signs (24Hr): Vital Signs - 24 hr 02/23/22 18:37 02/24/22 08:25 Temperature 97.8 F 97.9 F Pulse Rate 85 63 Respiratory Rate 18 16 Blood Pressure 139/72 122/65 Pulse Oximetry 98 99 Oxygen Delivery Method Room Air Room Air BMI result Body Mass Index 23.1 Labs 02/19/22 19:12 02/19/22 19:12 Medications Medications Current Medications Acetaminophen (Acetaminophen 325 Mg Tablet) 650 mg PO Q6H PRN PRN Reason: Headache/Pain Mild Scale (1-3) Al Hydroxide/Mg Hydroxide (Magnesium Hydrox/Alum Hydrox 30 Ml Oral.Susp) 30 ml PO Q6H PRN PRN Reason: Heartburn/Nausea Ferrous Sulfate (Ferrous Sulfate 324 Mg Tablet.Dr) 324 mg PO DAILY [facility] Last Admin: 02/24/22 09:25 Dose: Not Given Hydroxyzine HCl (Hydroxyzine Hcl 50 Mg Tablet) 50 mg PO BID PRN PRN Reason: anxiety Magnesium Hydroxide (Milk Of Magnesia 30 Ml Oral.Susp) 30 ml PO DAILY PRN PRN Reason: Constipation Melatonin (Melatonin 3 Mg Tablet) 9 mg PO BEDTIME PRN PRN Reason: insomnia Nicotine Polacrilex (Nicotine Polacrilex 2 Mg Gum) 2 mg BUCCAL Q2H PRN PRN Reason: Nicotine Cravings Pharmacy Consult (Consult Rx Perform Med Rec) 1 each MISCELLANE ONCE PRN PRN Reason: Consult order Risperidone (Risperidone 3 Mg Tablet) 3 mg PO BEDTIME [facility] Last Admin: 01/06/23 20:09 Dose: 3 mg Trazodone HCl (Trazodone Hcl 50 Mg Tablet) 50 mg PO BEDTIME PRN PRN Reason: insomnia Allergies Allergies Allergy/AdvReac Type Severity Reaction Status Date / Time No Known Allergies Allergy Unverified 11/05/19 18:52 [No Known Allergies*] Assessment & Plan Assessment & Plan (1) Schizophrenia: Status: Acute Code(s): F20.9 - Schizophrenia, unspecified Plan Mr. Gan is a 32 year-old male with hx of schizophrenia. He was brought in by mother due to increase paranoia, poor sleep, talking to himself. He has been inpatient in the past with similar presentation and has not followed through with outpatient psychiatric providers. Utox is negative. We discussed risks, benefits and alternative treatment options. Pt agrees to restart risperidone. PLAN 1. Admit to M5, CV, 15 minutes checks 2. start risperidone 1mg po BID, titrate 3. Aftercare planning 5. Obtain collateral information. 02/23/22 increase risperidone to 3mg po qhs. 02/24 continue current tx plan Reason for contiued inpatient stay Substantial Risk for: rapid decompensation Time Spent With Patient Time: Total time managing care of this patient today ____ minutes.
[2022-02-24 18:42] VITALS: BP 118/61; PULSE 80; TEMP 36.4
[2022-02-24] MEDS: risperiDONE 3 MG TABLET PO (19:32)
[2022-02-25 09:41] VITALS: BP 127/64; PULSE 81; RESP 18; TEMP 36.9; O2SAT 99
--- NOTE | 2022-02-25 11:29 | HO.PSYCHPN ---
Subjective Subjective Date of Service: 02/25/22 Reason For Visit: Schizoaffective disorder, bipolar type Interim History: Would only engage with writer editor superficially in for a moment. Says he has good ready to go home. He remains with intense eye contact at times, pacing or dancing in the halls. Mental Status Exam Mental Status Exam Narrative: Alert and oriented Appearance: Adequately groomed, in hospital gown Behavior: Polite but guarded; minimally cooperative Psychomotor: Some Psychomotor Agitation noted Speech: clear, regular rate/rhythm/volume, spontaneous TP: Goal oriented TC: Undisclosed Mood: Better than ever Affect: Euthymic Si: denies HI: denies AH/VH: denies but appears to be responding to internal stimuli Delusions: Recent paranoia Insight/judgment: Impaired Diagnostics Vital Signs (24Hr): Vital Signs - 24 hr 02/24/22 18:42 02/25/22 09:41 Temperature 97.6 F 98.4 F Pulse Rate 80 81 Respiratory Rate 18 Blood Pressure 118/61 127/64 Pulse Oximetry 99 Oxygen Delivery Method Room Air BMI result Body Mass Index 23.1 Labs 02/19/22 19:12 02/19/22 19:12 Medications Medications Current Medications Acetaminophen (Acetaminophen 325 Mg Tablet) 650 mg PO Q6H PRN PRN Reason: Headache/Pain Mild Scale (1-3) Al Hydroxide/Mg Hydroxide (Magnesium Hydrox/Alum Hydrox 30 Ml Oral.Susp) 30 ml PO Q6H PRN PRN Reason: Heartburn/Nausea Ferrous Sulfate (Ferrous Sulfate 324 Mg Tablet.Dr) 324 mg PO DAILY [facility] Last Admin: 02/25/22 09:43 Dose: Not Given Hydroxyzine HCl (Hydroxyzine Hcl 50 Mg Tablet) 50 mg PO BID PRN PRN Reason: anxiety Magnesium Hydroxide (Milk Of Magnesia 30 Ml Oral.Susp) 30 ml PO DAILY PRN PRN Reason: Constipation Melatonin (Melatonin 3 Mg Tablet) 9 mg PO BEDTIME PRN PRN Reason: insomnia Nicotine Polacrilex (Nicotine Polacrilex 2 Mg Gum) 2 mg BUCCAL Q2H PRN PRN Reason: Nicotine Cravings Pharmacy Consult (Consult Rx Perform Med Rec) 1 each MISCELLANE ONCE PRN PRN Reason: Consult order Risperidone (Risperidone 3 Mg Tablet) 3 mg PO BEDTIME [facility] Last Admin: 02/24/22 19:32 Dose: 3 mg Trazodone HCl (Trazodone Hcl 50 Mg Tablet) 50 mg PO BEDTIME PRN PRN Reason: insomnia Allergies Allergies Allergy/AdvReac Type Severity Reaction Status Date / Time No Known Allergies Allergy Unverified 11/05/19 18:52 [No Known Allergies*] Assessment & Plan Assessment & Plan (1) Schizophrenia: Status: Acute Code(s): F20.9 - Schizophrenia, unspecified Plan Mr. Gan is a 32 year-old male with hx of schizophrenia. He was brought in by mother due to increase paranoia, poor sleep, talking to himself. He has been inpatient in the past with similar presentation and has not followed through with outpatient psychiatric providers. Utox is negative. We discussed risks, benefits and alternative treatment options. Pt agrees to restart risperidone. PLAN 1. Admit to M5, CV, 15 minutes checks 2. start risperidone 1mg po BID, titrate 3. Aftercare planning 5. Obtain collateral information. 02/23/22 increase risperidone to 3mg po qhs. 02/24 continue current tx plan 02/25 continue current treatment plan Reason for contiued inpatient stay Substantial Risk for: med/psych decompensation Time Spent With Patient Time: Total time managing care of this patient today ____ minutes.
[2022-02-25] MEDS: risperiDONE 3 MG TABLET PO (19:13)
[2022-02-25 19:18] VITALS: BP 125/75; PULSE 85
--- NOTE | 2022-02-26 09:30 | HO.PSYCHPN ---
Subjective Subjective Date of Service: 02/26/22 Reason For Visit: Schizoaffective disorder, bipolar type Subjective Notes: Conditional Voluntary Interim History: Pt continues to present with paranoid delusions although he is not forthcoming with extend. Pt noted to be hiding under desk, run after seeing cleaning crew and later told this telegraphic typewriter operator that he thought this person was doing some inappropriate. He reports he feels better, when asked to elaborate he states in every possible way. He denies hearing voices but seen self dialoging. Pt denies SI/HI. No aggression towards self or others. He is taking risperidone and agrees to be referred to OP psych tx. He asks when he can be discharged, we discussed possible Saturday. Medication Compliance: Yes Side effects from medications: No Attending Groups: No Review of Systems Review of Systems Constitutional : No Weight loss, No Fever, No Chills, No Fatigue, No Malaise ENT/Mouth : No sore throat, No Rhinorrhea Eyes: No Eye Pain, No Swelling, No Redness Cardiovascular : No Chest Pain, No SOB, No Dyspnea on Exertion, No Orthopnea, No Edema, No Palpitations Respiratory : No Cough, No Sputum, No Wheezing Gastrointestinal : No Nausea, No Vomiting, No Diarrhea, No Constipation, No abdominal Pain, No Hematochezia, No Melena Genitourinary : No Dysuria, No Urinary Frequency, No Hematuria, Musculoskeletal : No joint pain, No Myalgias, No Joint Swelling Skin : No Skin Lesions, No rash Neuro : No Weakness, No Numbness, No Dizziness, No Headache Psych : No Anxiety/Panic, No Depression All other systems reviewed and are negative Yes all other systems are reviewed and are negative Constitutional: Reports no additional constitutional complaints Eyes: Reports no additional eye complaints Cardiovascular: Reports no additional cardiovascular complaints Mental Status Exam Mental Status Exam Narrative: Alert and oriented Appearance: Adequately groomed, in hospital gown Behavior: Polite but guarded; minimally cooperative Psychomotor: Some Psychomotor Agitation noted Speech: clear, regular rate/rhythm/volume, spontaneous TP: Goal oriented TC: Undisclosed Mood: Better than ever Affect: guarded Si: denies HI: denies AH/VH: denies but appears to be responding to internal stimuli Delusions: seen hiding under desk, suspicious about staff and some peers. Insight/judgment: Impaired Diagnostics Vital Signs (24Hr): Vital Signs - 24 hr 01/09/23 09:45 02/26/22 16:24 Temperature 97.7 F 98.4 F Pulse Rate 80 75 Respiratory Rate 16 Blood Pressure 134/68 129/74 Pulse Oximetry 97 Oxygen Delivery Method Room Air BMI result Body Mass Index 23.1 Labs 02/19/22 19:12 02/19/22 19:12 Medications Medications Current Medications Acetaminophen (Acetaminophen 325 Mg Tablet) 650 mg PO Q6H PRN PRN Reason: Headache/Pain Mild Scale (1-3) Al Hydroxide/Mg Hydroxide (Magnesium Hydrox/Alum Hydrox 30 Ml Oral.Susp) 30 ml PO Q6H PRN PRN Reason: Heartburn/Nausea Ferrous Sulfate (Ferrous Sulfate 324 Mg Tablet.Dr) 324 mg PO DAILY [facility] Last Admin: 02/27/22 08:52 Dose: Not Given Hydroxyzine HCl (Hydroxyzine Hcl 50 Mg Tablet) 50 mg PO BID PRN PRN Reason: anxiety Magnesium Hydroxide (Milk Of Magnesia 30 Ml Oral.Susp) 30 ml PO DAILY PRN PRN Reason: Constipation Melatonin (Melatonin 3 Mg Tablet) 9 mg PO BEDTIME PRN PRN Reason: insomnia Nicotine Polacrilex (Nicotine Polacrilex 2 Mg Gum) 2 mg BUCCAL Q2H PRN PRN Reason: Nicotine Cravings Pharmacy Consult (Consult Rx Perform Med Rec) 1 each MISCELLANE ONCE PRN PRN Reason: Consult order Risperidone (Risperidone 3 Mg Tablet) 3 mg PO BEDTIME [facility] Last Admin: 02/26/22 19:06 Dose: 3 mg Trazodone HCl (Trazodone Hcl 50 Mg Tablet) 50 mg PO BEDTIME PRN PRN Reason: insomnia Allergies Allergies Allergy/AdvReac Type Severity Reaction Status Date / Time No Known Allergies Allergy Unverified 11/05/19 18:52 [No Known Allergies*] Assessment & Plan Assessment & Plan (1) Schizophrenia: Status: Acute Code(s): F20.9 - Schizophrenia, unspecified Plan Mr. Gan is a 32 year-old male with hx of schizophrenia. He was brought in by mother due to increase paranoia, poor sleep, talking to himself. He has been inpatient in the past with similar presentation and has not followed through with outpatient psychiatric providers. Utox is negative. We discussed risks, benefits and alternative treatment options. Pt agrees to restart risperidone. PLAN 1. Admit to M5, CV, 15 minutes checks 2. start risperidone 1mg po BID, titrate 3. Aftercare planning 5. Obtain collateral information. 02/23/22 increase risperidone to 3mg po qhs. 02/24 continue current tx plan 02/25 continue current treatment plan 02/26 continue tx. Patient educated on: diagnosis Informed Consent: understands Reason for contiued inpatient stay Substantial Risk for: inability to function Time Spent With Patient Time: Total time managing care of this patient today ____ minutes.
[2022-02-26 09:45] VITALS: BP 134/68; PULSE 80; RESP 16; TEMP 36.5; O2SAT 97
[2022-02-26 16:24] VITALS: BP 129/74; PULSE 75; TEMP 36.9
[2022-02-26] MEDS: risperiDONE 3 MG TABLET PO (19:06)
[2022-02-27 09:08] VITALS: BP 126/57; PULSE 76; RESP 16; TEMP 36.8; O2SAT 98
--- NOTE | 2022-02-27 14:20 | HO.PSYCHPN ---
Subjective Subjective Date of Service: 02/27/22 Reason For Visit: Schizoaffective disorder, bipolar type Subjective Notes: Conditional Voluntary Interim History: Met with pt and his mother. Pt continues to present paranoia, thinking that peer and some staff are after him. He is taking oral risperidone but often times once discharged he would not continue tx. Pt had RANDOLPH of invega sometime last year or previous year with good effect, mother reports he was stable for longer period of time. Pt presents with no insight into symptoms and mental illness and need for ongoing treatment. Pt currently homeless because he quickly becomes paranoid and jumping from halfway to halfway. Mother reports he receives good amount of money from [employer] to afford pay apartment or room. Pt's mother asks for lauren and guardian as his judgment and insight impaired due to psychiatric illness and reason for him to be homeless. He denies SI/HI. No signs of aggression towards self or others. not fully forthcoming with extend of delusions but has been calling mom and during meeting reporting paranoid delusions towards peers and this in part reason for him to want to leave. He declined RANDOLPH of invega. Will complete medical certificate for mother to file for lauren and guardian. Medication Compliance: Yes Side effects from medications: No Attending Groups: No Review of Systems Acute medical concerns: No Review of Systems Review of Systems Constitutional : No Weight loss, No Fever, No Chills, No Fatigue, No Malaise ENT/Mouth : No sore throat, No Rhinorrhea Eyes: No Eye Pain, No Swelling, No Redness Cardiovascular : No Chest Pain, No SOB, No Dyspnea on Exertion, No Orthopnea, No Edema, No Palpitations Respiratory : No Cough, No Sputum, No Wheezing Gastrointestinal : No Nausea, No Vomiting, No Diarrhea, No Constipation, No abdominal Pain, No Hematochezia, No Melena Genitourinary : No Dysuria, No Urinary Frequency, No Hematuria, Musculoskeletal : No joint pain, No Myalgias, No Joint Swelling Skin : No Skin Lesions, No rash Neuro : No Weakness, No Numbness, No Dizziness, No Headache Psych : No Anxiety/Panic, No Depression All other systems reviewed and are negative Yes all other systems are reviewed and are negative Constitutional: Reports no additional constitutional complaints Eyes: Reports no additional eye complaints Cardiovascular: Reports no additional cardiovascular complaints Mental Status Exam Mental Status Exam Narrative: Alert and oriented Appearance: Adequately groomed, in hospital gown Behavior: Polite but guarded; minimally cooperative Psychomotor: Some Psychomotor Agitation noted Speech: clear, regular rate/rhythm/volume, spontaneous TP: Goal oriented TC: Undisclosed Mood: Better than ever Affect: guarded Si: denies HI: denies AH/VH: denies but appears to be responding to internal stimuli Delusions: seen hiding under desk, suspicious about staff and some peers. Insight/judgment: Impaired Diagnostics Vital Signs (24Hr): Vital Signs - 24 hr 02/27/22 18:00 02/28/22 08:35 Temperature 97.8 F 97.2 F Pulse Rate 81 110 H Respiratory Rate 16 18 Blood Pressure 132/74 160/80 H Pulse Oximetry 97 97 Oxygen Delivery Method Room Air Room Air BMI result Body Mass Index 23.1 Labs 02/19/22 19:12 02/19/22 19:12 Medications Medications Current Medications Acetaminophen (Acetaminophen 325 Mg Tablet) 650 mg PO Q6H PRN PRN Reason: Headache/Pain Mild Scale (1-3) Al Hydroxide/Mg Hydroxide (Magnesium Hydrox/Alum Hydrox 30 Ml Oral.Susp) 30 ml PO Q6H PRN PRN Reason: Heartburn/Nausea Ferrous Sulfate (Ferrous Sulfate 324 Mg Tablet.Dr) 324 mg PO DAILY [facility] Last Admin: 02/28/22 08:33 Dose: Not Given Hydroxyzine HCl (Hydroxyzine Hcl 50 Mg Tablet) 50 mg PO BID PRN PRN Reason: anxiety Magnesium Hydroxide (Milk Of Magnesia 30 Ml Oral.Susp) 30 ml PO DAILY PRN PRN Reason: Constipation Melatonin (Melatonin 3 Mg Tablet) 9 mg PO BEDTIME PRN PRN Reason: insomnia Nicotine Polacrilex (Nicotine Polacrilex 2 Mg Gum) 2 mg BUCCAL Q2H PRN PRN Reason: Nicotine Cravings Pharmacy Consult (Consult Rx Perform Med Rec) 1 each MISCELLANE ONCE PRN PRN Reason: Consult order Risperidone (Risperidone 3 Mg Tablet) 3 mg PO BEDTIME [facility] Last Admin: 02/27/22 20:18 Dose: 3 mg Trazodone HCl (Trazodone Hcl 50 Mg Tablet) 50 mg PO BEDTIME PRN PRN Reason: insomnia Allergies Allergies Allergy/AdvReac Type Severity Reaction Status Date / Time No Known Allergies Allergy Unverified 11/05/19 18:52 [No Known Allergies*] Assessment & Plan Assessment & Plan (1) Schizophrenia: Status: Acute Code(s): F20.9 - Schizophrenia, unspecified Plan Mr. Gan is a 32 year-old male with hx of schizophrenia. He was brought in by mother due to increase paranoia, poor sleep, talking to himself. He has been inpatient in the past with similar presentation and has not followed through with outpatient psychiatric providers. Utox is negative. We discussed risks, benefits and alternative treatment options. Pt agrees to restart risperidone. PLAN 1. Admit to M5, CV, 15 minutes checks 2. start risperidone 1mg po BID, titrate 3. Aftercare planning 5. Obtain collateral information. 02/23/22 increase risperidone to 3mg po qhs. 02/24 continue current tx plan 02/25 continue current treatment plan 02/26 continue tx. 02/27 continue tx with plan to d/c tomorrow Reason for contiued inpatient stay Substantial Risk for: inability to function Time Spent With Patient Time: Total time managing care of this patient today ____ minutes.
[2022-02-27 18:00] VITALS: BP 132/74; PULSE 81; RESP 16; TEMP 36.6; O2SAT 97
[2022-02-27] MEDS: risperiDONE 3 MG TABLET PO (20:18)
[2022-02-28 08:35] VITALS: BP 160/80; PULSE 110; RESP 18; TEMP 36.2; O2SAT 97
--- NOTE | 2022-02-28 11:32 | PM.PSYDC ---
DS: Providers Provider Date of Service: 02/28/22 Date of admission: 02/21/22 10:48 Primary care physician: None Physician DS: Diagnosis Discharge Diagnosis (1) Schizophrenia: Status: Acute DS: Medications Discharge Medications Home Medications: Previous Rx's Medication Instructions Recorded risperidone 3 mg tablet 3 mg PO BID #60 tabs 02/28/22 Mental Status Exam Mental Status Exam Narrative: Alert and oriented Appearance: Adequately groomed, in hospital gown Behavior: Polite but guarded; minimally cooperative Psychomotor: Some Psychomotor Agitation noted Speech: clear, regular rate/rhythm/volume, spontaneous TP: Goal oriented - wanting to be discharged TC: wanting to leave soon Mood: Better than ever Affect: guarded Si: denies HI: denies AH/VH: denies but appears to be responding to internal stimuli- talking to someone who is not there Delusions: seen hiding under desk, suspicious about staff and some peers.tells mother he is worried about safety. Insight/judgment: Impaired x 2. Data Data Completed and Pending Completed studies during hospitalization [Text1]: 02/22/22 02/22/22 02/22/22 08:20 08:20 08:20 Estimat Average Glucose 108 Hemoglobin A1c % 5.4 Magnesium 1.9 Triglycerides 52 Cholesterol 94 LDL Cholesterol, Calc 44 HDL Cholesterol 40 Vitamin B12 295 Folate 11.9 TSH 1.19 Free T4 1.00 DS: Summary Hospital Course Hospital Course: Subjective Notes: [place] Warning and Conditional Voluntary Narrative: Mr. Gan is a 32 year-old male with hx of schizophrenia who was brought in [place] [facility] due to increase paranoia, not sleeping, talking to himself, bizarre behaviors (unclear what behaviors as not described in crisis report). Pt has not been taking medications and it appears he does not have current psychiatric providers. Utox is negative. Pt is known to this typewriter aligner through previous admission with similar presentation. On the unit, pt presented as guarded, denying any psychiatric symptoms. He reports he is not sure why his mother was concerned about him. Pt denies hearing voices but throughout interview with this typewriter aligner, pt was laughing inappropriately, and mumbling and talking with someone who was not there as if responding to internal stimuli. Pt denies SI/HI. He does make some reference to thinking someone may be after him but not fully forthcoming with extend of paranoid delusions which has been the case during previous admission. Past Psychiatric History: [place] [facility] [place] Pt: Jhon states yes, but is not able to identify Trials: haldol (EPS), olanzapine, paliperidone, risperidone Medical Evaluation Reviewed: Yes HOSPITAL COURSE On the unit, Mr. Gan was admitted on a CV and placed on 15 minutes checks for safety. On the unit, despite pt denying any psychiatric symptoms or concerns, he presented with persecutory delusions, auditory hallucinations, talking with someone who was not there and poor sleep. We discussed risks, benefits and alternative treatment options. He agreed to restart risperidone, which was titrated to 3mg po qhs. He declined starting RANDOLPH- paliperidone, which he has been on in the past with good effect per mother. He gradually presented slightly less guarded, less suspicious and less self dialoguing but symptoms were present. He denied SI/HI. He did not have any incidences of disruptive behaviors nor use of restraints. He agreed to be referred to OP psych services but historically he has not followed up with them for a significant period of time. This typewriter aligner met with pt and mother day prior to discharged. It is clear that pt continues to present with paranoia and AH, but may not be at imminent risk of harm to self or others as symptoms have decreased due to him taking risperidone, therefore, will not file for involuntary treatment to the court. However, discussed extensively with mother, that in general pt's judgment and insight is impaired due to his psychiatric illness and he presents significantly much more stable when taking medications consistently. Recommend mother to file in court petition for lauren's/guardian and will complete medical certificate for her to file to the court. Pt's mother in agreement with plan and denies imminent safety concerns at time of discharge. Pt will be discharged to halfway. Time spent discussing smoking cessation with patient: 3 to 10 minutes (declines) Status at Discharge Cognitive/behavioral status at discharge: Pt less guarded, less self dialoguing but continues to present with paranoid/persecutory delusions and AH. No SI/HI. no signs of aggression towards self or others. Future oriented in that he is looking forward to see family. Limited insight into psychiatric symptoms and need for ongoing tx and medication. Functional status at discharge: independent ambulation Overall status at discharge: patient is progressing back to baseline Time Spent with Patient Time attestation: Total time managing care of this patient today _30___ minutes. Time spent: Greater than 30 minutes Discharge Plan Discharge Anticipated Discharge Date/Time: 02/28/22 11:26 Patient Disposition: Home, Self-Care Discharge Diagnosis: scihzophrenia Referrals: [facility] [Other] - 02/28/22 3:30 pm (Senior Living resource) [facility] [Other] - 1 Week (Senior Living Resource) [facility] Living Room [Other] - 1 Week ([facility] Living Room Resource) [facility] [Other] - 03/08/22 10:00 am (Initial diagnostic evaluation for therapy. Appointment in office at [place]. You need to show up for this appointment to receive medication management services. Arrive 15 minutes prior to appointment with your insurance card and ID.) [facility] [Other] (Walk in if needed.) Discharge Medications: New risperidone 3 mg Tablet 3 mg PO BID Qty: 60 0RF Discontinued hydroxyzine pamoate 50 mg capsule 1 cap PO BID PRN (Reason: anxiety) melatonin 3 mg Tablet 9 mg PO BEDTIME PRN (Reason: insomnia) ibuprofen 400 mg Tablet 400 mg PO Q8H PRN (Reason: pain) nicotine (polacrilex) 2 mg Gum 2 mg buccal Q2H PRN (Reason: Nicotine Cravings) Qty: 60 0RF trazodone 50 mg tablet 1 tab PO BEDTIME PRN (Reason: insomnia) Qty: 30 0RF olanzapine 10 mg tablet 1 tab PO BID Qty: 60 0RF ferrous sulfate 325 mg (65 mg iron) tablet,delayed release (DR/EC) 1 tab PO DAILY Qty: 30 0RF Discharge Orders: Discharge Order (Routine); Ordered 02/28/22 Ordered By: Lisa Angeles Diet: Regular diet Activity on Discharge: As tolerated Stand Alone Forms: Patient Portal Discharge page Care Plan Goals: 1. Less paranoia, less AH 2. No SI/HI 3. No aggression towards self or others Health Concerns: Follow up with PCP Plan of Treatment: 1. Take medications as prescribed 2. Go to nearest ED or call 911 in event of emergency Assessment: Pt continues to present with paranoid/persecutory delusions. He is seen self dialoguing, less so but still. He is less guarded. Pt sleeping better. No SI/HI. No signs of aggression towards self or others. No insight into psychiatric symptoms and need for ongoing psych tx and medications.
== END 2022-02-28 12:50 | disposition home or self-care (01) | DRG 750 ==
LOC: HO.ED 02-21 13:49 → HO.PM5 02-21 14:51
PROVIDERS: Physician Assistant; Physician Assistant Medical; Admitting Provider Clinical Nurse Specialist Psychiatric/Mental Health, Adult; Emergency Provider Emergency Medicine Emergency Medical Services; Visit Provider Clinical Nurse Specialist Psychiatric/Mental Health, Adult
DX: F20.9 Schizophrenia, unspecified (principal); Z59.02 Unsheltered homelessness; F17.210 Nicotine dependence, cigarettes, uncomplicated; Z20.822 Contact with and (suspected) exposure to COVID-19; Z71.6 Tobacco abuse counseling
CPT/HCPCS: 36415; 80053; 80061; 80307; 81001; 82077; 82607; 82746; 83036; 83690; 83735; 84439; 84443; 85025; 85610; 87635; 93005; 99285; S9485

== ENCOUNTER 2023-12-26 06:15 | Emergency (ER) | payer MEDICAID, SELFPAY ==
[2023-12-26 06:30] VITALS: BP 110/71; PULSE 88; RESP 18; TEMP 36.6; O2SAT 99; BMI 25.8
--- NOTE | 2023-12-26 06:43 | ED.GENADULT ---
HPI - General Adult General Chief complaint: Psychiatric Symptoms Stated complaint: crisis Time Seen by Provider: 12/26/23 06:40 Source: patient Mode of arrival: ambulatory Limitations: no limitations History of Present Illness ED Provider: Pamela Jay PA-C HPI narrative: Patient is a 33 year old assigned male at with a history of Schizophrenia presenting to the emergency department today with suicidal ideation and paranoia. Patient states that he has been feeling increasingly paranoid and having thoughts of hurting himself. Patient denies any dizziness, lightheadedness, abdominal pain, nausea, vomiting, fever, chills, blurry vision, double vision, loss of vision, chest pain, difficulty breathing, shortness of breath, back pain, night sweats, pain with urination, increased urinary frequency, increased urinary urgency, blood in his urine or stool, syncope or a near syncopal episode, recent trauma or falls, bowel incontinence, bladder incontinence, or any other complaints at this time. Relieving factors: none Exacerbating factors: none Associated symptoms: denies other symptoms Treatments prior to arrival: none Related Data Previous Rx's ?Medication ?Instructions ?Recorded risperidone 3 mg tablet 3 mg PO BID #60 tabs 02/28/22 Allergies Allergy/AdvReac Type Severity Reaction Status Date / Time No Known Allergies Allergy Unverified 12/26/23 06:31 [No Known Allergies*] Review of Systems Constitutional: Constitutional: Reports no additional constitutional complaints, Denies chills, Denies fever(s) and Denies night sweats Eyes: Eyes: Reports no additional eye complaints, Denies blurry vision, Denies change in vision, Denies diplopia, Denies eye discharge, Denies loss of vision and Denies eye pain ENT: Denies dizziness Cardiovascular: Cardiovascular: Reports no additional cardiovascular complaints, Denies chest pain, Denies lightheadedness, Denies Loss of Consciousness and Denies dyspnea Respiratory: Respiratory: Reports no additional respiratory complaints and Denies dyspnea Gastrointestinal: Gastrointestinal: Reports no additional gastrointestinal complaints, Denies abdominal pain, Denies melena, Denies hematochezia, Denies change in bowel habits and Denies change in stool character Genitourinary: Genitourinary: Reports no additional male genitourinary complaints, Denies hematuria, Denies oliguria, Denies difficulty urinating, Denies dysuria, Denies urinary frequency, Denies urinary hesitancy, Denies urinary incontinence and Denies urinary urgency Musculoskeletal: Musculoskeletal: Reports no additional musculoskeletal complaints, Denies numbness and Denies tingling Neurologic: Denies dizziness, Denies loss of vision, Denies numbness and Denies tingling Psychiatric: Psychiatric: Reports paranoia, Denies homicidal ideation and Reports suicidal ideation Endocrine: Endocrine: Reports no additional endocrine complaints Hematologic/Lymphatic: Hematologic/Lymphatic: Reports no additional hematologic/lymphatic complaints Allergic/Immunologic: Allergic/Immunologic: Reports no additional allergic/immunologic complaints PMFSH Past Medical History Attestation statement: The following information was validated with the patient. Source: old records reviewed and nursing notes reviewed Medical History MDD (major depressive disorder), recurrent episode Depression Family History Family History Mother No significant family history Father No significant family history Social History Social History Household Members: Unknown / Unable to assess Housing: Homeless Do you presently have visiting nurse or other home services: No Unable to assess alcohol history related to: Unknown Alcohol intake: unknown Patient Tobacco Use Status: Current everyday Tobacco user Tobacco use type: Cigarette Cigarette Packs Per Day: 1 Cigarettes Per Day: 20 Years Smoked: 16 years Smoked in Last 30 Days: No e-Cigarette/Vaping Use: Currently Using Second Hand Smoke Exposure: No Use of substances other than those prescribed or required for medical reasons: No Substance Use Type: Crack/Cocaine Advance Directives: No Advance Directives Information Provided: Yes Do you have a plan to hurt others: No Plan service: No Sexual orientation: Straight/Heterosexual Physical Exam ED Vital Signs: Vital Signs - 24 hr 12/26/23 06:30 12/26/23 09:27 12/26/23 10:30 Temperature 97.9 F 97.8 F Pulse Rate 88 88 Respiratory Rate 18 16 17 Blood Pressure 110/71 120/70 Pulse Oximetry 99 98 Oxygen Delivery Method Room Air Room Air BMI result Body Mass Index 25.8 Const General: cooperative, no acute distress, alert and awake Nutritional Appearance: well nourished Orientation/consciousness: patient oriented x3 Limitations: no limitations HENMT Head: Yes normal to inspection and Yes atraumatic Ears: hearing grossly normal bilaterally and external ears normal General nose exam: Normal external nose present, no nasal discharge noted and no epistaxis Face and sinus: Yes normal facial exam, No abrasion and No laceration Mouth: Normal oral and palatal mucosa present, no drooling and no muffled voice Eyes General: appearance normal, both eyes and all related structures Periorbital: periorbital findings normal Eyelids: Yes eyelids normal Conjunctivae: conjunctivae normal Pupils: Equal, round and reactive pupils present EOM: EOMs intact bilaterally Neck Neck: Yes normal visual inspection, Yes full ROM and Yes no lymphadenopathy Chest Chest palpation & inspection: normal inspection of the chest Resp Effort & Inspection: normal respiratory effort and able to speak in complete sentences GI Inspection: Yes normal to inspection Neuro General: patient oriented x3 and moves all extremities Cranial nerves: Yes Equal, round and reactive pupils present Cognition (Neuro): normal cognition Extrem General: Yes normal to inspection, Yes full ROM and Yes capillary refill normal Psych Appearance: grossly normal Mental Status: mental status grossly normal Attitude: Guarded attititude/behavior present Thought content: Suicidality present Medical Decision Making Medical Decision Making [facility] Narrative: Patient is a 33 year old assigned male at with a history of Schizophrenia presenting to the emergency department today with suicidal ideation and paranoia. Patient's physical exam was as noted in the physical exam portion of this note. Patient's blood work was unremarkable. Patient's urine showed no acute process. Patient met with the CARE team who recommended inpatient level of psychiatric care. I explained my physical exam findings as well as all test results to the patient. I answered all questions asked by the patient. Patient verbalized understanding and agreement with this treatment plan and inpatient level of psychiatric treatment. Differential Diagnosis Differential Diagnoses: The differential diagnosis associated with the presentation includes SI Psychosis Admission/Observation Consideration of admission/observation: Escalation of care including admission/observation considered Patient will either be admitted here for inpatient level of psychiatric care or transferred to an appropriate facility. Lab Data [facility] Lab Attestation statement: I reviewed the patient's lab results. My interpretation of these results are in the MDM Rationale portion of this note. 12/26/23 07:31 12/26/23 07:31 Labs: Lab Results 12/26/23 12/26/23 Range/Units 07:31 09:08 WBC 10.7 (4.8-10.8) X10*3/uL RBC 4.05 L (4.60-5.80) X10*6/uL Hgb 12.9 L (14.0-18.0) g/dl Hct 37.8 L (42.0-52.0) % MCV 93.3 (80.0-98.0) fL MCH 31.9 (27.0-33.0) pg MCHC 34.1 (31.0-36.0) g/dl RDW 14.2 (11.0-16.0) % Plt Count 257 (160-400) X10*3/uL MPV 10.1 (9.4-12.4) fL Immature Gran % (Auto) 0.5 H (0.0-0.4) % Neut % (Auto) 76.6 H (45-73) % Lymph % (Auto) 13.7 L (20-40) % Moody % (Auto) 6.6 (2-11) % Eos % (Auto) 2.3 (0-4) % Baso % (Auto) 0.3 (0-2) % Lymph # (Auto) 1.5 (1.2-4.9) X10*3/uL Moody # (Auto) 0.7 (0.1-1.2) X10*3/uL Eos # (Auto) 0.3 (0.0-0.4) X10*3/uL Baso # (Auto) 0.0 (0.0-0.2) X10*3/uL Abs Immat Gran (auto) 0.05 H (0.00-0.03) X10*3/uL Absolute Neuts (auto) 8.2 (2.0-8.3) x10*3/uL Absolute Nucleated RBC 0.000 (0.0-0.012) X10*3/uL Nucleated RBC % (auto) 0.0 (0.0-0.2) /100WBC Sodium 136 (135-145) mmol/L Potassium 4.1 (3.3-5.1) mmol/L Chloride 102 (96-108) mmol/L Carbon Dioxide 26 (22-29) mmol/L Anion Gap 12 (12-20) BUN 14 (9-16) mg/dL Creatinine 0.87 (0.5-1.4) mg/dL Estim Creat Clear Calc 128.6 Estimated GFR > 60 Random Glucose 90 (60-115) mg/dL Calcium 8.8 D (8.4-10.2) mg/dL Urine Color Yellow Urine Appearance Clear Urine pH 6.5 (5.0-9.0) Ur Specific [place] <= 1.005 (1.005-1.025) Urine Protein Negative (Neg-Trace) mg/dL Urine Glucose (UA) Negative (Negative) mg/dL Urine Ketones Negative (Negative) mg/dL Urine Blood Negative (Negative) Urine Nitrite Negative (Negative) Ur Leukocyte Esterase Negative (Negative) Salicylates < 5.0 L (15-30) mg/dL Urine Opiates Screen Not Detected (Not Detect) Ur Buprenorphine Scrn Not Detected (Not Detect) ng/mL Ur Oxycodone Screen Not Detected (Not Detect) ng/mL Urine Methadone Screen Not Detected (Not Detect) ng/mL Urine Fentanyl Screen Not Detected (Not Detect) Ur Barbiturates Screen Not Detected (Not Detect) Ur Phencyclidine Scrn Not Detected (Not Detect) Ur Amphetamines Screen Not Detected (Not Detect) U Benzodiazepines Scrn Not Detected (Not Detect) Urine Cocaine Screen Not Detected (Not Detect) U Marijuana (THC) Screen Not Detected (Not Detect) Ethyl Alcohol < 10 mg/dL Critical Care Time Critical Care Time Critical Care Time: Yes Total Critical Care Time: 34 Attestation: I spent 34 minutes of Critical Care Time with this patient. This does not include time spent on separately reported billable procedures. Discharge Plan Discharge Clinical Impression: Suicidal ideation Patient Disposition: Still a Patient Prescriptions: No Action risperidone 3 mg Tablet 3 mg PO BID Qty: 60 0RF Interventions: [place]-Suicide Risk Severity Scale Last Done: 12/26/23 10:57 Print Language: [place]an
[2023-12-26 07:36] LABS: MANUAL DIFF FLAG NO
[2023-12-26 07:38] LABS: Basophils Percent Auto 0.3 % (0-2); Eosinophils Absolute Auto 0.3 X10*3/uL (0.0-0.4); Eosinophils Percent Auto 2.3 % (0-4); Hematocrit 37.8 % (42.0-52.0); Hemoglobin 12.9 g/dl (14.0-18.0); Imm Gran Abs Auto 0.05 X10*3/uL (0.00-0.03); Imm Gran Pct Auto 0.5 % (0.0-0.4); Lymphocytes Absolute Auto 1.5 X10*3/uL (1.2-4.9); Lymphocytes Percent Auto 13.7 % (20-40); Mean Corpuscular HGB Conc 34.1 g/dl (31.0-36.0); Mean Corpuscular Hemoglobin 31.9 pg (27.0-33.0); Mean Corpuscular Volume 93.3 fL (80.0-98.0); Mean Platelet Volume 10.1 fL (9.4-12.4); Monocytes Absolute Auto 0.7 X10*3/uL (0.1-1.2); Monocytes Percent Auto 6.6 % (2-11); Neutrophils Absolute Auto 8.2 x10*3/uL (2.0-8.3); Neutrophils Percent Auto 76.6 % (45-73); Platelet Count 257 X10*3/uL (160-400); Red Blood Count 4.05 X10*6/uL (4.60-5.80); Red Cell Distribution Width 14.2 % (11.0-16.0); White Blood Count 10.7 X10*3/uL (4.8-10.8)
[2023-12-26 07:54] LABS: Ethanol < 10 mg/dL
[2023-12-26 07:55] LABS: Anion Gap 12 (12-20); Blood Urea Nitrogen 14 mg/dL (9-16); Calcium 8.8 mg/dL (8.4-10.2); Carbon Dioxide 26 mmol/L (22-29); Chloride 102 mmol/L (96-108); Creatinine Clr Calc Pharmacy 128.6; Estimated Glomerular Filt Rate > 60; Glucose Random 90 mg/dL (60-115); Potassium 4.1 mmol/L (3.3-5.1); Sodium 136 mmol/L (135-145)
[2023-12-26 07:56] LABS: Salicylate < 5.0 mg/dL (15-30)
[2023-12-26 09:27] VITALS: RESP 16
[2023-12-26 09:30] LABS: Appearance Urine Clear; Color Urine Yellow; Glucose Urine UA Negative (Negative); Leukocyte Esterase Urine Negative (Negative); Nitrite Urine Negative (Negative); PH 6.5 (5.0-9.0); Specific Gravity - Urine <= 1.005 (1.005-1.025); Urine Blood Negative (Negative); Urine Ketones Negative (Negative); Urine Protein Negative (Neg-Trace)
[2023-12-26 09:41] LABS: Amphetamine Screen Urine Not Detected (Not Detect); Barbiturates, Urine Not Detected (Not Detect); Benzodiazepines Screen Urine Not Detected (Not Detect); Buprenorphine Scr Not Detected (Not Detect); Cannabinoid Screen Urine Not Detected (Not Detect); Cocaine Screen Urine Not Detected (Not Detect); Fentanyl, urine Not Detected (Not Detect); Methadone Screen, Urine Not Detected (Not Detect); Opiate Screen Urine Not Detected (Not Detect); Oxycodone Screen Urine Not Detected (Not Detect); Phencyclidine Screen Urine Not Detected (Not Detect)
[2023-12-26 10:30] VITALS: BP 120/70; PULSE 88; RESP 17; TEMP 36.6; O2SAT 98
--- NOTE | 2023-12-26 10:40 | PC.NURSE ---
Pt resting comfortably on stretcher, snoring loudly with respirations equal/unlabored.
--- NOTE | 2023-12-26 10:57 | PC.NURSE ---
Report given to Cassandra RN in ED POD.
--- NOTE | 2023-12-26 11:03 | PC.NURSE ---
RE: med rec Patient reports he only takes Zyprexa 20mg at bedtime. Is unable to confirm which pharmacy he received the medication from, pt reports I get them from the doctor
--- NOTE | 2023-12-26 11:05 | PC.NURSE ---
Assumed care of patient at 1100, patient is calm and cooperative, offers no complaints to this RN at this time
[2023-12-26 14:32] VITALS: BP 118/92; PULSE 89; RESP 16; TEMP 37.1; O2SAT 98
== END 2023-12-26 14:34 | disposition home or self-care (01) ==
PROVIDERS: Emergency Provider Emergency Medicine
DX: F33.1 Major depressive disorder, recurrent, moderate (principal); R45.851 Suicidal ideations; F17.210 Nicotine dependence, cigarettes, uncomplicated; Z51.81 Encounter for therapeutic drug level monitoring; Z79.899 Other long term (current) drug therapy
CPT/HCPCS: 36415; 80048; 80179; 80307; 81003; 85025; 99284; 99285; S9485

== ENCOUNTER 2024-05-14 14:38 | Emergency (ER) | payer MEDICAID, SELFPAY ==
[2024-05-14 14:54] VITALS: BP 124/80; BP 124/82; PULSE 110; PULSE 122; RESP 22; O2SAT 96; O2SAT 97; BMI 24.4
--- NOTE | 2024-05-14 15:37 | ED.GENADULT ---
HPI - General Adult General Chief complaint: General Medical Stated complaint: swollen tongue Time Seen by Provider: 05/14/24 15:04 Source: patient Mode of arrival: ambulatory Limitations: no limitations History of Present Illness ED Provider: Harrison Gordillo HPI narrative: 34-year-old male with schizoaffective disorder presents to ED for tongue swelling since yesterday. Patient denies any itching or wheezing or shortness of breath. States swelling of tongue has occurred in the past and self resolved. Patient states this time there was no soft resolving of tongue swelling. Patient denies any itchiness, rash, or new allergies Related Data Home Medications ?Medication ?Instructions ?Recorded ?Confirmed olanzapine 20 mg tablet (Zyprexa) 20 mg PO BEDTIME 12/26/23 12/26/23 Previous Rx's ?Medication ?Instructions ?Recorded dexamethasone 6 mg tablet 6 mg PO DAILY 5 days #5 tabs 05/14/24 Allergies Allergy/AdvReac Type Severity Reaction Status Date / Time No Known Allergies Allergy Verified 05/14/24 15:59 [No Known Allergies*] Review of Systems Review of Systems: tongue swelling drooling Yes all other systems are reviewed and are negative PMFSH Past Medical History Medical History MDD (major depressive disorder), recurrent episode Depression Family History Family History Mother No significant family history Father No significant family history Social History Social History Household Members: Unknown / Unable to assess Housing: Homeless Do you presently have visiting nurse or other home services: No Unable to assess alcohol history related to: Unknown Alcohol intake: unknown Patient Tobacco Use Status: Current everyday Tobacco user Tobacco use type: Cigarette Cigarette Packs Per Day: 1 Cigarettes Per Day: 20 Years Smoked: 16 years e-Cigarette/Vaping Use: Currently Using Second Hand Smoke Exposure: No Substance Use Type: Crack/Cocaine service: No Sexual orientation: Straight/Heterosexual Physical Exam ED Vital Signs: Vital Signs - 24 hr 05/14/24 14:54 Pulse Rate 110 H Respiratory Rate 22 H Blood Pressure 124/82 Pulse Oximetry 97 Oxygen Delivery Method Room Air BMI result Body Mass Index 24.4 Const General: cooperative, healthy appearing, comfortable, no acute distress, well developed, alert, awake and Physically active Orientation/consciousness: patient oriented x3 HENMT Other: positive for sublingual swelling and drooling. Right buccual muccosa swelling Slight uvular swelling. tongue protuding Head: Yes normal to inspection, Yes No palpable skull fracture present, Yes normocephalic and Yes atraumatic Eyes General: appearance normal, both eyes and all related structures Neck Neck: Yes normal visual inspection, Yes full ROM, Yes no lymphadenopathy, Yes no meningeal signs, Yes trachea midline, Yes supple, No anterior neck swelling and No tender Chest Chest palpation & inspection: normal inspection of the chest and normal palpation of entire chest wall Resp Effort & Inspection: normal respiratory effort and able to speak in complete sentences Auscultation: clear to auscultation bilaterally Cardio Jugular venous distension: no JVD Heart sounds: S1 normal heart sound present and S2 normal heart sound present GI Inspection: Yes normal to inspection Palpation (GI): Soft to palpation, not firm, nontender, no guarding and not rigid General: Yes no CVA tenderness Back/Spine/Pelvis Back: no CVA tenderness and No back tenderness Skin General skin exam: no rashes or lesions noted, elasticity normal and turgor normal Neuro General: patient oriented x3, gait normal, tone normal, moves all extremities, Normal light touch and pain sensation, no meningeal signs, no focal motor deficits, CN's II-XI intact bilaterally and normal sensation to monofilament Extrem General: Yes normal to inspection, Yes full ROM and Yes capillary refill normal Psych Appearance: grossly normal, well kempt and not disheveled Medical Decision Making Medical Decision Making MDM Narrative: 34 yold male with angioedema since yesterday. Dr. Cade recommend patient be admitted for observation and start on FFP. presently no need for epinephrine. HE evaluated patient. Patient refused treatment and signed out AMA knowing risks of from angioedema. Myself and Dr. Cade tried to convince patient not to leave due to risk of , but patient still sign out AMA. patient will not allow any further evaluation Differential Diagnosis Differential Diagnoses: The differential diagnosis associated with the presentation includes ( angioedema, Sergio's angina, retropharyngeal abscess) Admission/Observation Consideration of admission/observation: Escalation of care including admission/observation considered Independent Historian Clinical information obtained from an independent historian. History obtained from or confirmed by: Other ( patient) Discharge Plan Discharge Clinical Impression: Angioedema Patient Disposition: Left Against Medical Advice Instructions: Angioedema (ED) Additional Instructions: You are signing out against medical advice. We recommend treatment with blood products FFP and admission to ICU. return to the ED immediately for any worsening swelling, shortness of breath, drooling, worsening change in voice, fever, chills, or any other concerning symptoms. Prescriptions: New dexamethasone 6 mg tablet 6 mg PO DAILY 5 Days Qty: 5 0RF No Action olanzapine [Zyprexa] 20 mg Tablet 20 mg PO BEDTIME Stand Alone Forms: Against Medical Advice Discharge Date/Time: 05/14/24 15:42 Print Language: Maldivian
--- NOTE | 2024-05-14 15:38 | PC.NURSE ---
Pt acting erratic and bizarre, pacing around and leaving room frequently. Pt demanding to leave, MD and PA at bedside explaining risks of refusal of treatment. Pt continually states he wants to leave grabs his things and puts his clothes on. Pt pacing around, leaving room. PA and MD explain risks of leaving AMA, pt signed AMA form along with 2 nurses.
[2024-05-14 15:39] VITALS: BP 124/82; PULSE 110; RESP 22; TEMP -17.7; TEMP 0; O2SAT 97
== END 2024-05-14 15:42 | disposition left against medical advice (07) ==
PROVIDERS: Emergency Provider Emergency Medicine
DX: T78.3XXA Angioneurotic edema, initial encounter (principal); X58.XXXA Exposure to other specified factors, initial encounter; Z53.29 Procedure and treatment not carried out because of patient's decision for other reasons; F17.210 Nicotine dependence, cigarettes, uncomplicated
CPT/HCPCS: 36415; 70491; 80053; 83605; 85025; 87040; 96365; 96367; 99282; 99283; 99284; J0295; J1100; J3370; Q9967

== ENCOUNTER 2024-05-14 15:43 | Emergency (ER) | payer MEDICAID, SELFPAY ==
--- NOTE | ~2024-05-14 | CT_ITS ---
CLINICAL HISTORY: Sublingual swelling with pus drainage. CT soft tissue neck with IV contrast. COMPARISON: None FINDINGS: Visualized portions of the upper lungs are unremarkable. Normal thyroid gland. Normal parotid glands. Edema present within the soft tissues surrounding the right submandibular gland. This causes mild mass effect on the oropharynx on the right. Sialolith present within the right submandibular gland measuring 5 mm. There is dilatation of the submandibular duct with two sialoliths along the distal aspect of the submandibular duct measuring 7 mm and 5 mm. No organizing fluid collection. Normal appearance of the right submandibular gland. Multiple normal-sized jugular chain and posterior cervical lymph nodes bilaterally. Orbital soft tissues are unremarkable. Parapharyngeal fat pads are preserved. [place] tonsils are normal in size. No peritonsillar fluid collection or evidence for abscess. Normal epiglottis. Visualized portions of the trachea and esophagus are unremarkable. Normal vertebral body alignment. No acute fracture or suspicious bone lesion. Visualized intracranial structures are unremarkable. IMPRESSION: 1. Right submandibular gland sialadenitis with sialoliths present within the right submandibular gland measuring 5 mm and in the distal aspect of the dilated right submandibular duct measuring 7 mm and 5 mm. Edema surrounding the right submandibular gland causes mild mass effect upon the oropharynx on the right. No evidence of abscess. This document has been electronically signed by: Laurent Jones MD on 05/14/2024 17:23:28
[2024-05-14 15:58] VITALS: BP 134/82; PULSE 108; RESP 22; TEMP 36.6; O2SAT 99; BMI 24.1
[2024-05-14] MEDS: dexAMETHasone sod phosphate 10 MG/ML VIAL 20 MG IVPUSH (16:06)
[2024-05-14 16:10] LABS: MANUAL DIFF FLAG NO
[2024-05-14] MEDS: Ampicillin Sodium/Sulbactam Na 3 GM in 0.9 % Sodium Chloride 100 ML IV (16:12)
[2024-05-14 16:14] LABS: Basophils Percent Auto 0.2 % (0-2); Eosinophils Absolute Auto 0.1 X10*3/uL (0.0-0.4); Eosinophils Percent Auto 0.5 % (0-4); Hematocrit 37.5 % (42.0-52.0); Hemoglobin 12.9 g/dl (14.0-18.0); Imm Gran Abs Auto 0.09 X10*3/uL (0.00-0.03); Imm Gran Pct Auto 0.4 % (0.0-0.4); Lymphocytes Absolute Auto 0.9 X10*3/uL (1.2-4.9); Lymphocytes Percent Auto 4.3 % (20-40); Mean Corpuscular HGB Conc 34.4 g/dl (31.0-36.0); Mean Corpuscular Hemoglobin 31.9 pg (27.0-33.0); Mean Corpuscular Volume 92.8 fL (80.0-98.0); Mean Platelet Volume 10.4 fL (9.4-12.4); Monocytes Absolute Auto 1.2 X10*3/uL (0.1-1.2); Monocytes Percent Auto 5.6 % (2-11); Neutrophils Absolute Auto 18.3 x10*3/uL (2.0-8.3); Platelet Count 266 X10*3/uL (160-400); Red Blood Count 4.04 X10*6/uL (4.60-5.80); Red Cell Distribution Width 13.6 % (11.0-16.0); White Blood Count 20.6 X10*3/uL (4.8-10.8)
[2024-05-14 16:24] LABS: Anion Gap 13 (12-20)
--- NOTE | 2024-05-14 16:26 | ED_ITS ---
HPI - General Adult General Chief complaint: Dental/Oral Stated complaint: unknown injury ? choking Time Seen by Provider: 05/14/24 15:58 Source: patient Mode of arrival: ambulatory Limitations: no limitations History of Present Illness ED Provider: Harrison Coon HPI narrative: 34 yold male who signed out AMA for tongue swelling returned to the Ed now with pus drainage from subliingual area and increase drooling. Patient angel does not want to stay in the ED, but we concinved him to receive treatment. patient states he wants to leave in two hours Related Data Home Medications ?Medication ?Instructions ?Recorded ?Confirmed olanzapine 20 mg tablet (Zyprexa) 20 mg PO BEDTIME 12/26/23 12/26/23 Previous Rx's ?Medication ?Instructions ?Recorded dexamethasone 6 mg tablet 6 mg PO DAILY 5 days #5 tabs 05/14/24 Allergies Allergy/AdvReac Type Severity Reaction Status Date / Time No Known Allergies Allergy Verified 05/14/24 15:59 [No Known Allergies*] Review of Systems 2 Review of Systems: Tongue swelling, increased drooling, pus drainage from sublingual area. Yes all other systems are reviewed and are negative FORMERLY [facility], [facility] Past Medical History Medical History MDD (major depressive disorder), recurrent episode Depression Family History Family History Mother No significant family history Father No significant family history Social History Social History Household Members: Unknown / Unable to assess Housing: Homeless Do you presently have visiting nurse or other home services: No Unable to assess alcohol history related to: Unknown Alcohol intake: unknown Patient Tobacco Use Status: Current everyday Tobacco user Tobacco use type: Cigarette Cigarette Packs Per Day: 1 Cigarettes Per Day: 20 Years Smoked: 16 years Smoked in Last 30 Days: Yes e-Cigarette/Vaping Use: Currently Using Second Hand Smoke Exposure: No Use of substances other than those prescribed or required for medical reasons: No Substance Use Type: Crack/Cocaine Advance Directives: No Advance Directives Information Provided: No service: No Sexual orientation: Straight/Heterosexual Physical Exam ED Vital Signs: Vital Signs - 24 hr 05/14/24 15:58 03/27/25 17:25 Temperature 98 F 98 F Pulse Rate 108 H 108 H Respiratory Rate 22 H 22 H Blood Pressure 134/82 134/82 Pulse Oximetry 99 99 Oxygen Delivery Method Room Air Room Air BMI result Body Mass Index 24.1 Const General: cooperative, healthy appearing, comfortable, no acute distress, well developed, alert, awake and Physically active Orientation/consciousness: patient oriented x3 HENMT Other: Yellow pus drainage from sublingual which is swollen and patient drooling vomiting. Head: Yes normal to inspection, Yes No palpable skull fracture present, Yes normocephalic and Yes atraumatic Eyes General: appearance normal, both eyes and all related structures Neck Neck: Yes normal visual inspection, Yes full ROM, Yes no lymphadenopathy, Yes no meningeal signs, Yes trachea midline, Yes supple, No anterior neck swelling and No tender Chest Chest palpation & inspection: normal inspection of the chest and normal palpation of entire chest wall Resp Effort & Inspection: normal respiratory effort and able to speak in complete sentences Cardio Jugular venous distension: no JVD Heart sounds: S1 normal heart sound present and S2 normal heart sound present GI Inspection: Yes normal to inspection Palpation (GI): Soft to palpation, not firm, nontender, no guarding and not rigid General: Yes no CVA tenderness Back/Spine/Pelvis Back: no CVA tenderness and No back tenderness Skin General skin exam: no rashes or lesions noted, elasticity normal and turgor normal Neuro General: patient oriented x3, gait normal, tone normal, moves all extremities, Normal light touch and pain sensation, no meningeal signs, no focal motor deficits, CN's II-XI intact bilaterally and normal sensation to monofilament Extrem General: Yes normal to inspection, Yes full ROM and Yes capillary refill normal Psych Appearance: grossly normal, well kempt and not disheveled Course Course Course Narrative: Faiza Ingram PA-C have accepted care of the patient and signed out pending CT scan and final disposition. The patient was wanting to leave, he was sitting in his room eating, no one was aware of this. He does not feel he requires treatment, he was refusing to stay, he was willing to signed out against medical advice. I have explained to him that we are concerned that he has a deep tissue infection involving the spaces within the neck, that he is septic, that he could if this infection is not treated. He is aware that the CT scan is pending, he still wants to leave. To note he is alert and oriented, I have no grounds to hold him medically. Medications Administered Discontinued Medications Generic Name Dose Route Start Last Admin Trade Name Taryn PRN Reason Stop Dose Admin Dexamethasone Sodium Phosphate 20 mg 05/14/24 15:58 05/14/24 16:06 Dexamethasone Sod Phosphate 10 Mg/Ml Vial IVPUSH 05/14/24 15:59 20 mg ONCE ONE Administration Vancomycin HCl 2,000 mg in 500 mls @ 250 mls/hr 05/14/24 15:58 05/14/24 17:18 Vancomycin/Ns IV 05/14/24 17:57 Infused ONCE ONE Infusion Ampicillin Sodium/Sulbactam 100 mls @ 200 mls/hr 05/14/24 15:58 05/14/24 16:54 Sodium 3 gm/ Sodium Chloride IV 05/14/24 16:27 Infused ONCE ONE Infusion Iohexol 100 ml 05/14/24 16:54 05/14/24 16:54 Iohexol 350 Mg/Ml 100 Ml Infus..Btl IV 05/14/24 16:55 60 ml ONCE ONE Administration Medical Decision Making Medical Decision Making MDM Narrative: Patient is a 34-year-old male who signed out AMA about 20 minutes ago return to the ED for drooling, vomiting, and pus drainage from sublingual area that is swollen. Decadron 20 mg IV ordered. Unasyn and vancomycin ordered. Labs CT scan odor. Patient informs ED to stay but patient is still saying he will leave within 40 minutes. Patient is agreeable to have CAT scan done. Patient is educated on risks of leaving without treatment and CAT scan results a can lead to . Was sign out case to JENNIFER Matute. Nail patient is in a one-to-one. Patient had Lab Data 05/14/24 16:05 05/14/24 16:05 Labs: Lab Results 05/14/24 Range/Units 16:05 WBC 20.6 H (4.8-10.8) X10*3/uL RBC 4.04 L (4.60-5.80) X10*6/uL Hgb 12.9 L (14.0-18.0) g/dl Hct 37.5 L (42.0-52.0) % MCV 92.8 (80.0-98.0) fL MCH 31.9 (27.0-33.0) pg MCHC 34.4 (31.0-36.0) g/dl RDW 13.6 (11.0-16.0) % Plt Count 266 (160-400) X10*3/uL MPV 10.4 (9.4-12.4) fL Immature Gran % (Auto) 0.4 (0.0-0.4) % Neut % (Auto) 89.0 H (45-73) % Lymph % (Auto) 4.3 L (20-40) % Josephine % (Auto) 5.6 (2-11) % Eos % (Auto) 0.5 (0-4) % Baso % (Auto) 0.2 (0-2) % Lymph # (Auto) 0.9 L (1.2-4.9) X10*3/uL Josephine # (Auto) 1.2 (0.1-1.2) X10*3/uL Eos # (Auto) 0.1 (0.0-0.4) X10*3/uL Baso # (Auto) 0.0 (0.0-0.2) X10*3/uL Abs Immat Gran (auto) 0.09 H (0.00-0.03) X10*3/uL Absolute Neuts (auto) 18.3 H (2.0-8.3) x10*3/uL Absolute Nucleated RBC 0.000 (0.0-0.012) X10*3/uL Nucleated RBC % (auto) 0.0 (0.0-0.2) /100WBC Sodium 140 (135-145) mmol/L Potassium 3.9 (3.3-5.1) mmol/L Chloride 104 (96-108) mmol/L Carbon Dioxide 27 (22-29) mmol/L Anion Gap 13 (12-20) BUN 12 (9-16) mg/dL Creatinine 0.90 (0.5-1.4) mg/dL Estim Creat Clear Calc 126.9 Estimated GFR > 60 Random Glucose 131 H (60-115) mg/dL Lactic Acid 1.4 (0.5-2.0) mmol/L Calcium 9.2 (8.4-10.2) mg/dL Total Bilirubin 1.0 (0.0-1.0) mg/dL AST 104 H (5-37) U/L ALT 36 (0-40) U/L Alkaline Phosphatase 79 (39-117) U/L Total Protein 7.7 (6.5-8.0) g/dL Albumin 4.5 (3.5-5.0) g/dL Discharge Plan Discharge Clinical Impression: Sepsis Patient Disposition: Left Against Medical Advice Additional Instructions: You have a CT scan pending of your neck, there was concern for deep tissue infection. You were also septic. You declined to stay for management. You were choosing to leave against medical advice Prescriptions: No Action olanzapine [Zyprexa] 20 mg Tablet 20 mg PO BEDTIME dexamethasone 6 mg tablet 6 mg PO DAILY 5 Days Qty: 5 0RF Stand Alone Forms: Against Medical Advice Interventions: ED Discharge Assessment Last Done: 05/14/24 17:25 Discharge Date/Time: 05/14/24 17:26 Print Language: Mongolian
[2024-05-14 16:27] LABS: Alanine Aminotransferase 36 U/L (0-40); Albumin Level 4.5 g/dL (3.5-5.0); Aspartate Amino Transferase 104 U/L (5-37); Blood Urea Nitrogen 12 mg/dL (9-16); Calcium 9.2 mg/dL (8.4-10.2); Carbon Dioxide 27 mmol/L (22-29); Chloride 104 mmol/L (96-108); Creatinine Clr Calc Pharmacy 126.9; Estimated Glomerular Filt Rate > 60; Glucose Random 131 mg/dL (60-115); Potassium 3.9 mmol/L (3.3-5.1); Sodium 140 mmol/L (135-145); Total Protein 7.7 g/dL (6.5-8.0)
[2024-05-14 16:29] LABS: Lactic Acid 1.4 mmol/L (0.5-2.0)
[2024-05-14 16:39] LABS: Alkaline Phosphatase 79 U/L (39-117)
[2024-05-14] MEDS: vancomycin/NS 2,000 MG/500 ML PLAST..BAG 250 MG IV (16:53)
[2024-05-14] MEDS: iohexoL 350 MG/ML 100 ML INFUS..BTL IV (16:54)
--- NOTE | 2024-05-14 17:05 | PC.NURSE ---
PTS BELONGINGS SEARCHED BY SECURITY, ALCOHOL AND LIGHTERS TAKEN BY SECURITY AND PLACED IN THEIR OFFICE WITH STICKERS TO HOLD UNTIL PT D/C
[2024-05-14 17:25] VITALS: BP 134/82; PULSE 108; RESP 22; TEMP 36.6; O2SAT 99
== END 2024-05-14 17:26 | disposition left against medical advice (07) ==
PROVIDERS: Physician Assistant; Emergency Provider Emergency Medicine
DX: A41.9 Sepsis, unspecified organism (principal); K11.20 Sialoadenitis, unspecified; F17.210 Nicotine dependence, cigarettes, uncomplicated; Z53.29 Procedure and treatment not carried out because of patient's decision for other reasons
CPT/HCPCS: 36415; 70491; 80053; 83605; 85025; 87040; 96365; 96367; 99284; J0295; J1100; J3370; Q9967

== ENCOUNTER → 2024-05-14 15:58 | Outpatient (BNV) | payer MEDICAID, SELFPAY | PROVIDERS: Emergency Provider Emergency Medicine; Visit Provider Radiology Diagnostic Radiology | DX: K14.8 Other diseases of tongue (principal); A41.9 Sepsis, unspecified organism | CPT/HCPCS: 70491 ==